=== PATIENT | male | born 1990 | race Caucasian/White ===

== ENCOUNTER 2017-04-12 03:33 | Emergency (ER) | payer OTHER ==
[~2017-04-12] VITALS: Ht 170.2 cm; Wt 79.5 kg
[~2017-04-12 03:33] MED LIST: ALPR-392 PO; SERT50TA PO; TRAZ-129 PO
[2017-04-12] MEDS ORDERED: SODIUM CHLORIDE 0.9% 1,000 ML IV ONE (04:10)
[2017-04-12] MEDS ORDERED: LORAZEPAM 2MG/ML CPJ IV ONE (04:15)
[2017-04-12 04:48] LABS: BASOPHILS % 0.8 % (0.0-2.0); EOSINOPHILS % 0.2 % (0.0-5.0); HEMATOCRIT. 44.6 % (42.0-52.0); HEMOGLOBIN. 15.3 g/dL (14.0-18.0); LYMPHOCYTES % 26.2 % (20.0-50.0); MEAN CORPUSCULAR HEMOGLOBIN 31.4 pg (28.0-32.0); MEAN CORPUSCULAR VOLUME 91.4 fL (80.0-94.0); MEAN PLATELET VOLUME 8.2 fl (7.4-10.4); MONOCYTES % 6.7 % (2.0-8.0); NEUTROPHILS % 66.1 % (40.0-76.0); PLATELET 197 x1000/uL (130-400); RED BLOOD CELL COUNT 4.88 mill/uL (4.7-6.1); RED CELL DISTRIBUTION WIDTH 13.6 % (11.6-14.6)
[2017-04-12 04:54] LABS: INR 1.1; PROTHROMBIN TIME 11.4 sec
[2017-04-12] MEDS ORDERED: ONDANSETRON HCL 4MG/2ML VIAL IV STA (04:54)
[2017-04-12 04:55] LABS: AMMONIA 25 uMol/L (<32)
[2017-04-12 05:00] LABS: CARBON DIOXIDE 26 mEq/L (21-32); CHLORIDE 99 mEq/L (98-107); ETHANOL BLOOD < 10 mg/dL
[2017-04-12 06:16] LABS: *AMPHETAMINES SCREEN URINE NEGATIVE (NEGATIVE); *BARBITURATES SCREEN URINE NEGATIVE (NEGATIVE); *BENZODIAZEPINES SCREEN URINE NEGATIVE (NEGATIVE); *COCAINE SCREEN URINE NEGATIVE (NEGATIVE); CANNABINOID URINE SCREEN PRESUMTIVE POSITIVE (NEGATIVE); METHADONE URINE SCREEN NEGATIVE (NEGATIVE); OPIATES URINE SCREEN NEGATIVE (NEGATIVE); PHENCYCLIDINE URINE SCREEN NEGATIVE (NEGATIVE)
[2017-04-12 07:05] VITALS: BP 127/90
== END 2017-04-12 07:05 | disposition home or self-care (01) ==
LOC: ER 03:35
DX: F10.239 Alcohol dependence with withdrawal, unspecified (principal); R74.0 Nonspecific elevation of levels of transaminase and lactic acid dehydrogenase [LDH]; F41.9 Anxiety disorder, unspecified; F12.10 Cannabis abuse, uncomplicated
CPT/HCPCS: 36415; 71010; 80053; 80305; 82140; 83690; 85025; 85610; 93005; 96361; 96374; 96375; 99285; G0482; J2060; J2405; J7030; Z7610

== ENCOUNTER 2017-05-05 04:51 | Emergency (ER) | payer OTHER ==
[~2017-05-05] VITALS: Ht 170.2 cm; Wt 82.0 kg
[2017-05-05] MEDS ORDERED: SODIUM CHLORIDE 0.9% 1,000 ML IV ONE (06:43)
[2017-05-05] MEDS ORDERED: ONDANSETRON HCL 4MG/2ML VIAL IV ONE (06:45)
[2017-05-05] MEDS ORDERED: CHLORDIAZEPOXIDE 25MG CAPSULE PO ONE (06:45)
[2017-05-05] MEDS ORDERED: ACETAMINOPHEN 325MG TABLET PO ONE (07:00)
[2017-05-05 07:34] LABS: CHLORIDE 99 mEq/L (98-107)
[2017-05-05 07:39] LABS: CARBON DIOXIDE 24 mEq/L (21-32); ETHANOL BLOOD 145 mg/dL
[2017-05-05 07:46] LABS: BASOPHILS % 0.8 % (0.0-2.0); EOSINOPHILS % 0.1 % (0.0-5.0); HEMATOCRIT. 45.2 % (42.0-52.0); HEMOGLOBIN. 15.5 g/dL (14.0-18.0); LYMPHOCYTES % 42.1 % (20.0-50.0); MEAN CORPUSCULAR HEMOGLOBIN 31.6 pg (28.0-32.0); MEAN CORPUSCULAR VOLUME 91.9 fL (80.0-94.0); MEAN PLATELET VOLUME 7.6 fl (7.4-10.4); MONOCYTES % 8.6 % (2.0-8.0); NEUTROPHILS % 48.4 % (40.0-76.0); PLATELET 263 x1000/uL (130-400); RED BLOOD CELL COUNT 4.91 mill/uL (4.7-6.1); RED CELL DISTRIBUTION WIDTH 13.6 % (11.6-14.6)
[2017-05-05 08:33] VITALS: BP 132/87
== END 2017-05-05 08:35 | disposition home or self-care (01) ==
LOC: ER 04:52
DX: F10.239 Alcohol dependence with withdrawal, unspecified (principal); Y90.6 Blood alcohol level of 120-199 mg/100 ml; R19.7 Diarrhea, unspecified; R11.2 Nausea with vomiting, unspecified
CPT/HCPCS: 36415; 80053; 85025; 96361; 96374; 99284; G0482; J2405; J7030; Z7610

== ENCOUNTER 2017-06-01 04:35 | Emergency (ER) | payer OTHER ==
[~2017-06-01] VITALS: Ht 170.2 cm; Wt 82.0 kg
[2017-06-01 06:38] VITALS: BP 154/86
[2017-06-01] MEDS ORDERED: ONDANSETRON HCL 4MG/2ML VIAL IV ONE (07:30)
[2017-06-01] MEDS ORDERED: LORAZEPAM 2MG/ML CPJ IV ONE (07:30)
[2017-06-01] MEDS ORDERED: SODIUM CHLORIDE 0.9% 1,000 ML IV ONE (07:30)
[2017-06-01 07:38] LABS: BASOPHILS % 0.9 % (0.0-2.0); EOSINOPHILS % 0.4 % (0.0-5.0); HEMOGLOBIN. 14.5 g/dL (14.0-18.0); LYMPHOCYTES % 29.4 % (20.0-50.0); MEAN CORPUSCULAR VOLUME 92.9 fL (80.0-94.0); MEAN PLATELET VOLUME 8.4 fl (7.4-10.4); MONOCYTES % 9.4 % (2.0-8.0); NEUTROPHILS % 59.9 % (40.0-76.0); PLATELET 194 x1000/uL (130-400); RED BLOOD CELL COUNT 4.52 mill/uL (4.7-6.1); RED CELL DISTRIBUTION WIDTH 14.7 % (11.6-14.6)
[2017-06-01 07:50] LABS: CARBON DIOXIDE 29 mEq/L (21-32); CHLORIDE 98 mEq/L (98-107); ETHANOL BLOOD < 10 mg/dL
[2017-06-01 08:31] LABS: CLARITY URINE CLEAR (CLEAR); COLOR URINE ORANGE (YELLOW); GLUCOSE URINE NEGATIVE (NEGATIVE); KETONES URINE 1+ (NEGATIVE); LEUKOCYTE ESTERASE URINE TRACE (NEGATIVE); NITRITE URINE NEGATIVE (NEGATIVE); OCCULT BLOOD URINE NEGATIVE (NEGATIVE); PH URINE 8.5 (4.5-8.0); PROTEIN URINE 1+ (NEGATIVE); SPECIFIC GRAVITY URINE 1.022 (1.005-1.030)
== END 2017-06-01 10:30 | disposition home or self-care (01) ==
LOC: ER 04:35
DX: F10.129 Alcohol abuse with intoxication, unspecified (principal); Y90.0 Blood alcohol level of less than 20 mg/100 ml
CPT/HCPCS: 36415; 80048; 81001; 85025; 96361; 96374; 96375; 99284; G0482; J2060; J2405; J7030; Z7610

== ENCOUNTER 2017-09-30 22:11 | Inpatient (IN) | payer OTHER ==
[~2017-09-30] VITALS: Ht 170.2 cm; Wt 66.7 kg
[2017-09-30] MEDS ORDERED: SODIUM CHLORIDE 0.9% 1,000 ML IV ONE (22:55)
[2017-09-30] MEDS ORDERED: LORAZEPAM 2MG/ML CPJ IV STA (22:55)
[2017-09-30] MEDS ORDERED: MAGNESIUM 2 G PREMIX 50 ML IV ONE (23:00)
[2017-09-30] MEDS ORDERED: FOLIC ACID 1 MG, THIAMINE HCL 100 MG, MVI, ADULT NO.1 10 ML in DEXTROSE 5% WATER 1,000 ML IV ONE ×4 (23:00)
[2017-09-30 23:25] LABS: BASOPHILS % 0.6 % (0.0-2.0); EOSINOPHILS % 0.1 % (0.0-5.0); HEMATOCRIT. 43.7 % (42.0-52.0); LYMPHOCYTES % 16.4 % (20.0-50.0); MEAN CORPUSCULAR HEMOGLOBIN 32.4 pg (28.0-32.0); MEAN PLATELET VOLUME 8.9 fl (7.4-10.4); MONOCYTES % 9.2 % (2.0-8.0); NEUTROPHILS % 73.7 % (40.0-76.0); PLATELET 155 x1000/uL (130-400); RED BLOOD CELL COUNT 4.65 mill/uL (4.7-6.1); RED CELL DISTRIBUTION WIDTH 13.4 % (11.6-14.6)
[2017-09-30 23:33] LABS: AMMONIA 44 uMol/L (<32)
[2017-09-30 23:40] LABS: CARBON DIOXIDE 26 mEq/L (21-32); CHLORIDE 89 mEq/L (98-107); CREATINE KINASE 156 IU/L (39-308); ETHANOL BLOOD < 10 mg/dL
[2017-09-30] MEDS ORDERED: LACTULOSE 20G/30ML UDC PO ONE (23:45)
[2017-10-01] MEDS ORDERED: ONDANSETRON HCL 4MG/2ML VIAL IV ONE (00:15)
[2017-10-01] MEDS ORDERED: POTASSIUM CHLORIDE 20MEQ TABLET SR PO NR (00:45)
[2017-10-01] MEDS ORDERED: POTASSIUM CHLORIDE INJ 40 MEQ in DEXT 5% WATER 250 ML IV NR (00:45)
[2017-10-01 02:18] LABS: CLARITY URINE CLEAR (CLEAR); COLOR URINE ORANGE (YELLOW); KETONES URINE TRACE (NEGATIVE); LEUKOCYTE ESTERASE URINE 1+ (NEGATIVE); NITRITE URINE NEGATIVE (NEGATIVE); OCCULT BLOOD URINE NEGATIVE (NEGATIVE); PH URINE >=9.0 (4.5-8.0); PROTEIN URINE 2+ (NEGATIVE); SPECIFIC GRAVITY URINE 1.025 (1.005-1.030)
[2017-10-01 02:28] LABS: *AMPHETAMINES SCREEN URINE NEGATIVE (NEGATIVE); *BARBITURATES SCREEN URINE NEGATIVE (NEGATIVE); *BENZODIAZEPINES SCREEN URINE NEGATIVE (NEGATIVE); *COCAINE SCREEN URINE NEGATIVE (NEGATIVE); CANNABINOID URINE SCREEN PRESUMTIVE POSITIVE (NEGATIVE); METHADONE URINE SCREEN NEGATIVE (NEGATIVE); OPIATES URINE SCREEN NEGATIVE (NEGATIVE); PHENCYCLIDINE URINE SCREEN NEGATIVE (NEGATIVE)
[2017-10-01] MEDS ORDERED: MAGNESIUM/ALUMINUM HYDROXIDE/SIMETHICONE 30ML UDC PO PRN (07:45)
[2017-10-01] MEDS ORDERED: GUAIFENESIN 200MG/10ML SUGAR FREE UDC PO PRN (07:45)
[2017-10-01] MEDS ORDERED: ACETAMINOPHEN 650MG/20.3ML UDC GT PRN (07:45)
[2017-10-01] MEDS ORDERED: ACETAMINOPHEN 325MG TABLET PO PRN (07:45)
[2017-10-01] MEDS ORDERED: DIPHENHYDRAMINE 50MG/ML VIAL IV PRN (07:45)
[2017-10-01] MEDS ORDERED: HYDROCODONE/ACETAMINOPHEN 5/325MG TABLET PO PRN (07:45)
[2017-10-01] MEDS ORDERED: ONDANSETRON HCL 4MG/2ML VIAL IV PRN (07:45)
[2017-10-01] MEDS ORDERED: NA PHOS,M-B/NA PHOS,DI-BA ENEMA 118ML PR PRN (07:45)
[2017-10-01] MEDS ORDERED: IPRATROPIUM/ALBUTEROL 0.5-3(2.5)MG/3ML NEB INH PRN (07:45)
[2017-10-01] MEDS ORDERED: DOCUSATE SODIUM 100MG CAPSULE PO PRN (07:45)
[2017-10-01] MEDS ORDERED: CLONIDINE 0.1MG TABLET PO PRN (07:45)
[2017-10-01] MEDS ORDERED: ACETAMINOPHEN 650MG SUPP PR PRN (07:45)
[2017-10-01 09:00] VITALS: BP 147/99
[2017-10-01 09:37] VITALS: BP 147/99
[2017-10-01] MEDS: SODIUM CHLORIDE 0.45% 1,000 ML IV SCH ×2 (09:55→21:33)
[2017-10-01] MEDS: SODIUM CHLORIDE 0.9% INJ 3ML FLUSH IVF SCH ×2 (09:55→21:36)
[2017-10-01 10:05] LABS: CARBON DIOXIDE 29 mEq/L (21-32); CHLORIDE 95 mEq/L (98-107)
[2017-10-01 12:00] VITALS: BP 138/103
[2017-10-01] MEDS: ENOXAPARIN 40MG/0.4ML SYR SUBCUT SCH (13:28)
[2017-10-01] MEDS: CHLORDIAZEPOXIDE 25MG CAPSULE PO SCH ×2 (13:28→21:26)
[2017-10-01 16:00] VITALS: BP 128/87
[2017-10-01 22:36] VITALS: BP 128/90
[2017-10-02] VITALS: BP 129/89
[2017-10-02 04:00] VITALS: BP 134/98
[2017-10-02 05:16] LABS: HEMATOCRIT. 42.5 % (42.0-52.0); HEMOGLOBIN. 14.2 g/dL (14.0-18.0); LYMPHOCYTES % 30.7 % (20.0-50.0); MEAN CORPUSCULAR HEMOGLOBIN 32.1 pg (28.0-32.0); MEAN PLATELET VOLUME 9.4 fl (7.4-10.4); MONOCYTES % 7.7 % (2.0-8.0); NEUTROPHILS % 59.6 % (40.0-76.0); PLATELET 119 x1000/uL (130-400); RED BLOOD CELL COUNT 4.43 mill/uL (4.7-6.1)
[2017-10-02 05:21] LABS: CARBON DIOXIDE 30 mEq/L (21-32); CHLORIDE 100 mEq/L (98-107); HDL CHOLESTEROL 49 mg/dL (40-59); LDL CHOLESTEROL 98 mg/dL (5-100)
[2017-10-02] MEDS: CHLORDIAZEPOXIDE 25MG CAPSULE PO SCH (06:33)
[2017-10-02] MEDS: SODIUM CHLORIDE 0.9% INJ 3ML FLUSH IVF SCH (06:35)
[2017-10-02 09:00] VITALS: BP 146/95
[2017-10-02] MEDS: ENOXAPARIN 40MG/0.4ML SYR SUBCUT SCH (11:00)
[2017-10-02 12:30] VITALS: BP 131/100
[2017-10-02 13:12] VITALS: BP 131/100
== END 2017-10-02 14:00 | disposition home or self-care (01) | DRG 897 ==
LOC: ER 22:11 → 7WST 10-01 00:48 → ENRESERV 10-01 07:33
PROVIDERS: ADMIT Family Medicine; ATTEND Family Medicine
DX: F10.239 Alcohol dependence with withdrawal, unspecified (principal); K29.70 Gastritis, unspecified, without bleeding; Z79.899 Other long term (current) drug therapy
CPT/HCPCS: 36415; 80048; 80053; 80061; 80305; 81001; 82140; 82550; 82962; 83605; 85025; 93005; 96374; 96375; 99285; G0482; J1650; J2060; J2405; J3411; J3475; J3480; J3490; J7030; J7060; J7070

== ENCOUNTER 2017-10-21 20:36 | Emergency (ER) | payer OTHER ==
[~2017-10-21] VITALS: Ht 170.2 cm; Wt 82.0 kg
[2017-10-21] MEDS ORDERED: HYDROCODONE/ACETAMINOPHEN 5/325MG TABLET PO ONE (22:00)
[2017-10-21] MEDS ORDERED: KETOROLAC 60MG/2ML VIAL IM ONE (22:00)
[2017-10-22 00:16] VITALS: BP 125/85
== END 2017-10-22 00:16 | disposition home or self-care (01) ==
LOC: ER 21:43
DX: S92.901A Unspecified fracture of right foot, initial encounter for closed fracture (principal); W22.8XXA Striking against or struck by other objects, initial encounter; Y93.89 Activity, other specified; Y92.018 Other place in single-family (private) house as the place of occurrence of the external cause
CPT/HCPCS: 29515; 73630; 96372; 99284; J1885

== ENCOUNTER 2017-11-14 22:31 | Inpatient (IN) | payer SELFPAY ==
[~2017-11-14] VITALS: Ht 154.2 cm; Wt 79.4 kg
[2017-11-15] MEDS ORDERED: SODIUM CHLORIDE 0.9% 1,000 ML IV ONE (03:20)
[2017-11-15] MEDS ORDERED: ONDANSETRON HCL 4MG/2ML VIAL IV STA ×2 (03:20→04:21)
[2017-11-15 04:03] LABS: BASOPHILS % 0.5 % (0.0-2.0); EOSINOPHILS % 0.1 % (0.0-5.0); HEMOGLOBIN. 15.1 g/dL (14.0-18.0); LYMPHOCYTES % 7.3 % (20.0-50.0); MEAN CORPUSCULAR HEMOGLOBIN 32.7 pg (28.0-32.0); MEAN PLATELET VOLUME 8.1 fl (7.4-10.4); MONOCYTES % 6.9 % (2.0-8.0); NEUTROPHILS % 85.2 % (40.0-76.0); PLATELET 149 x1000/uL (130-400); RED BLOOD CELL COUNT 4.63 mill/uL (4.7-6.1); RED CELL DISTRIBUTION WIDTH 14.6 % (11.6-14.6)
[2017-11-15 04:05] LABS: CHLORIDE 92 mEq/L (98-107)
[2017-11-15 04:08] LABS: INR 1.2; PROTHROMBIN TIME 12.1 sec (9.4-11.6)
[2017-11-15 04:19] LABS: ETHANOL BLOOD < 10 mg/dL
[2017-11-15 04:45] LABS: CLARITY URINE TURBID (CLEAR); COLOR URINE ORANGE (YELLOW); KETONES URINE 2+ (NEGATIVE); LEUKOCYTE ESTERASE URINE 2+ (NEGATIVE); NITRITE URINE POSITIVE (NEGATIVE); OCCULT BLOOD URINE 2+ (NEGATIVE); PROTEIN URINE 3+ (NEGATIVE); SPECIFIC GRAVITY URINE 1.043 (1.005-1.030)
[2017-11-15] MEDS ORDERED: KCL 20MEQ/100ML PREMIX 100 ML IV NR (04:45)
[2017-11-15] MEDS ORDERED: SODIUM CHLORIDE 0.9% 1000ML BAG (SEPSIS BOLUS) IV NR (04:45)
[2017-11-15 04:57] LABS: *AMPHETAMINES SCREEN URINE NEGATIVE (NEGATIVE); *BARBITURATES SCREEN URINE NEGATIVE (NEGATIVE); *BENZODIAZEPINES SCREEN URINE PRESUMTIVE POSITIVE (NEGATIVE); *COCAINE SCREEN URINE NEGATIVE (NEGATIVE); METHADONE URINE SCREEN NEGATIVE (NEGATIVE)
[2017-11-15 04:58] LABS: CANNABINOID URINE SCREEN PRESUMTIVE POSITIVE (NEGATIVE); OPIATES URINE SCREEN NEGATIVE (NEGATIVE); PHENCYCLIDINE URINE SCREEN NEGATIVE (NEGATIVE)
[2017-11-15] MEDS ORDERED: LORAZEPAM 2MG/ML CPJ IV NR (05:00)
[2017-11-15] MEDS ORDERED: CEFTRIAXONE 1 G PREMIX 50 ML IV ONE (07:00)
[2017-11-15 08:00] VITALS: BP 154/102
[2017-11-15 09:23] VITALS: BP 154/102
[2017-11-15 09:47] VITALS: BP 154/102
[2017-11-15] MEDS ORDERED: MAGNESIUM/ALUMINUM HYDROXIDE/SIMETHICONE 30ML UDC PO PRN (11:45)
[2017-11-15] MEDS ORDERED: CLONIDINE 0.1MG TABLET PO PRN (11:45)
[2017-11-15] MEDS ORDERED: IPRATROPIUM/ALBUTEROL 0.5-3(2.5)MG/3ML NEB INH PRN (11:45)
[2017-11-15] MEDS ORDERED: ONDANSETRON HCL 4MG/2ML VIAL IV PRN (11:45)
[2017-11-15 12:00] VITALS: BP 149/100
[2017-11-15] MEDS ORDERED: MVI, ADULT NO.1 10 ML, FOLIC ACID 1 MG, THIAMINE HCL 100 MG in SODIUM CHLORIDE 0.9% 1,0... IV SCH ×4 (14:00)
[2017-11-15] MEDS: CHLORDIAZEPOXIDE 25MG CAPSULE PO SCH ×2 (14:06→22:29)
[2017-11-15] MEDS: LORAZEPAM 2MG/ML CPJ IV PRN ×2 (14:07→22:30)
[2017-11-15] MEDS: OMEPRAZOLE 20MG CAPSULE EXTENDED RELEASE PO SCH (14:19)
[2017-11-15 16:00] VITALS: BP 134/91
[2017-11-15] MEDS ORDERED: TRAMADOL 50MG TABLET PO PRN (19:00)
[2017-11-15 20:00] VITALS: BP 127/79
[2017-11-15] MEDS: SODIUM CHLORIDE 0.9% 1,000 ML IV SCH (22:29)
[2017-11-16] VITALS: BP 130/83
[2017-11-16 04:00] VITALS: BP 133/94
[2017-11-16] MEDS: CHLORDIAZEPOXIDE 25MG CAPSULE PO SCH ×3 (05:49→21:02)
[2017-11-16 07:28] LABS: BASOPHILS % 0.6 % (0.0-2.0); EOSINOPHILS % 0.8 % (0.0-5.0); HEMATOCRIT. 38.9 % (42.0-52.0); HEMOGLOBIN. 13.4 g/dL (14.0-18.0); LYMPHOCYTES % 27.1 % (20.0-50.0); MEAN CORPUSCULAR HEMOGLOBIN 33.3 pg (28.0-32.0); MEAN CORPUSCULAR VOLUME 96.4 fL (80.0-94.0); MONOCYTES % 6.7 % (2.0-8.0); NEUTROPHILS % 64.8 % (40.0-76.0); PLATELET 96 x1000/uL (130-400); RED BLOOD CELL COUNT 4.04 mill/uL (4.7-6.1); RED CELL DISTRIBUTION WIDTH 14.7 % (11.6-14.6)
[2017-11-16 07:55] LABS: CHLORIDE 102 mEq/L (98-107)
[2017-11-16 08:00] VITALS: BP 142/99
[2017-11-16 08:20] LABS: PHOSPHORUS 2.8 mg/dL (2.5-4.9)
[2017-11-16] MEDS: OMEPRAZOLE 20MG CAPSULE EXTENDED RELEASE PO SCH (08:22)
[2017-11-16] MEDS: SODIUM CHLORIDE 0.9% 1,000 ML IV SCH (09:26)
[2017-11-16] MEDS: LORAZEPAM 1MG TABLET PO PRN ×3 (11:09→21:02)
[2017-11-16] MEDS ORDERED: POTASSIUM CHLORIDE 20MEQ TABLET SR PO NR (11:15)
[2017-11-16 12:00] VITALS: BP 139/102
[2017-11-16 16:00] VITALS: BP 144/105
[2017-11-16 19:36] LABS: HEPATITIS B SURFACE ANTIGEN NEGATIVE
[2017-11-16 20:00] VITALS: BP 140/89
[2017-11-16 20:04] LABS: HEPATITIS B CORE AB IGM NEGATIVE
[2017-11-16 20:06] LABS: HEPATITIS A AB IGM NEGATIVE (NEGATIVE)
[2017-11-17] VITALS: BP 130/96
[2017-11-17 04:00] VITALS: BP 123/79
[2017-11-17] MEDS: LORAZEPAM 1MG TABLET PO PRN ×2 (04:38→10:04)
[2017-11-17 06:11] LABS: HEMOGLOBIN 14.4 g/dL (14.0-18.0); MEAN CORPUSCULAR HEMOGLOBIN 33.3 pg (28.0-32.0); MEAN CORPUSCULAR VOLUME 97.3 fL (80.0-94.0); PLATELET 112 x1000/uL (130-400); RED BLOOD CELL COUNT 4.31 mill/uL (4.7-6.1); RED CELL DISTRIBUTION WIDTH 14.6 % (11.6-14.6)
[2017-11-17] MEDS: OMEPRAZOLE 20MG CAPSULE EXTENDED RELEASE PO SCH (06:29)
[2017-11-17] MEDS: CHLORDIAZEPOXIDE 25MG CAPSULE PO SCH (06:29)
[2017-11-17 06:47] LABS: CHLORIDE 102 mEq/L (98-107)
[2017-11-17 08:00] VITALS: BP 133/102
[2017-11-17 12:00] VITALS: BP 145/100
[2017-11-17] MEDS ORDERED: FOLI-43 PO (14:03)
[2017-11-17] MEDS ORDERED: THIA100T13 PO (14:03)
[2017-11-17] MEDS ORDERED: MULT-1146 PO (14:04)
[2017-11-17 14:05] VITALS: BP 145/100
== END 2017-11-17 15:00 | disposition home or self-care (01) | DRG 775 ==
LOC: ER 22:31 → 6EST 11-15 04:56 → ENRESERV 11-15 06:55
PROVIDERS: ADMIT Family Medicine Adult Medicine; ATTEND Family Medicine Adult Medicine
DX: F10.239 Alcohol dependence with withdrawal, unspecified (principal); E87.2 Acidosis; K76.0 Fatty (change of) liver, not elsewhere classified; I10 Essential (primary) hypertension; K70.9 Alcoholic liver disease, unspecified; N39.0 Urinary tract infection, site not specified; E87.6 Hypokalemia; D53.9 Nutritional anemia, unspecified; Z79.899 Other long term (current) drug therapy; Z79.1 Long term (current) use of non-steroidal anti-inflammatories (NSAID)
CPT/HCPCS: 36415; 70450; 71045; 74176; 76705; 80048; 80053; 80076; 80305; 81003; 82248; 83605; 83690; 83735; 84100; 84484; 85025; 85027; 85610; 86705; 86709; 86803; 87340; 87804; 96361; 96365; 96366; 96367; 96375; 97162; 99291; G0482; J0696; J2060; J2405; J3411; J3480; J3490; J7030

== ENCOUNTER 2017-12-14 02:12 | Emergency (ER) | payer SELFPAY ==
[~2017-12-14] VITALS: Ht 170.2 cm; Wt 65.0 kg
[~2017-12-14 02:12] MED LIST changes: -ALPR-392 PO; +FOLI-43 PO; +MULT-1146 PO; -SERT50TA PO; +THIA100T13 PO; -TRAZ-129 PO
[2017-12-14] MEDS ORDERED: SODIUM CHLORIDE 0.9% 1,000 ML IV ONE (03:38)
[2017-12-14] MEDS ORDERED: LORAZEPAM 1MG TABLET PO ONE (03:45)
[2017-12-14] MEDS ORDERED: FOLIC ACID 1 MG, THIAMINE HCL 100 MG, MVI, ADULT NO.1 10 ML in DEXTROSE 5% WATER 1,000 ML IV ONE ×4 (03:45)
[2017-12-14 04:04] LABS: BASOPHILS % 0.3 % (0.0-2.0); HEMATOCRIT. 41.1 % (42.0-52.0); HEMOGLOBIN. 14.5 g/dL (14.0-18.0); LYMPHOCYTES % 15.1 % (20.0-50.0); MEAN CORPUSCULAR HEMOGLOBIN 33.4 pg (28.0-32.0); MEAN CORPUSCULAR VOLUME 94.6 fL (80.0-94.0); MEAN PLATELET VOLUME 8.6 fl (7.4-10.4); NEUTROPHILS % 74.6 % (40.0-76.0); PLATELET 92 x1000/uL (130-400); RED BLOOD CELL COUNT 4.34 mill/uL (4.7-6.1); RED CELL DISTRIBUTION WIDTH 14.7 % (11.6-14.6)
[2017-12-14 04:07] LABS: CHLORIDE 85 mEq/L (98-107)
[2017-12-14 04:08] LABS: INR 1.2; PROTHROMBIN TIME 12.5 sec (9.4-11.6)
[2017-12-14 04:11] LABS: ETHANOL BLOOD < 10 mg/dL
[2017-12-14] MEDS ORDERED: LORAZEPAM 2MG/ML CPJ IV ONE ×2 (04:30→09:45)
[2017-12-14] MEDS ORDERED: POTASSIUM CHLORIDE 20MEQ TABLET SR PO ONE (04:30)
[2017-12-14 05:03] LABS: CLARITY URINE CLEAR (CLEAR); COLOR URINE ORANGE (YELLOW); KETONES URINE NEGATIVE (NEGATIVE); LEUKOCYTE ESTERASE URINE 1+ (NEGATIVE); NITRITE URINE POSITIVE (NEGATIVE); OCCULT BLOOD URINE NEGATIVE (NEGATIVE); PH URINE >=9.0 (4.5-8.0); PROTEIN URINE 3+ (NEGATIVE); SPECIFIC GRAVITY URINE 1.027 (1.005-1.030)
[2017-12-14 05:13] LABS: *AMPHETAMINES SCREEN URINE NEGATIVE (NEGATIVE); *BARBITURATES SCREEN URINE NEGATIVE (NEGATIVE); *BENZODIAZEPINES SCREEN URINE PRESUMTIVE POSITIVE (NEGATIVE); *COCAINE SCREEN URINE NEGATIVE (NEGATIVE)
[2017-12-14 05:14] LABS: CANNABINOID URINE SCREEN PRESUMTIVE POSITIVE (NEGATIVE); METHADONE URINE SCREEN NEGATIVE (NEGATIVE); OPIATES URINE SCREEN NEGATIVE (NEGATIVE); PHENCYCLIDINE URINE SCREEN NEGATIVE (NEGATIVE)
[2017-12-14 10:07] VITALS: BP 131/90
== END 2017-12-14 10:08 | disposition home or self-care (01) ==
LOC: ER 02:12
DX: F10.229 Alcohol dependence with intoxication, unspecified (principal); N39.0 Urinary tract infection, site not specified; E87.6 Hypokalemia; Z79.899 Other long term (current) drug therapy; R79.1 Abnormal coagulation profile
CPT/HCPCS: 36415; 80053; 80305; 81003; 83690; 84132; 85025; 85610; 96361; 96365; 96375; 99285; G0482; J2060; J3411; J3490; J7030; J7070; Z7610

== ENCOUNTER 2018-03-05 15:53 | Inpatient (IN) | payer OTHER ==
[~2018-03-05] VITALS: Ht 170.2 cm; Wt 72.1 kg
[2018-03-05] MEDS ORDERED: SODIUM CHLORIDE 0.9% 1,000 ML IV ONE (16:35)
[2018-03-05] MEDS ORDERED: ONDANSETRON HCL 4MG/2ML VIAL IV STA (16:35)
[2018-03-05] MEDS ORDERED: FAMOTIDINE 20MG/2ML VIAL IV ONE (16:45)
[2018-03-05] MEDS ORDERED: MIDAZOLAM HCL 2 MG/2 ML VIAL IV ONE ×2 (16:45→17:30)
[2018-03-05 17:04] LABS: BASOPHILS % 0.4 % (0.0-2.0); HEMATOCRIT. 42.2 % (42.0-52.0); HEMOGLOBIN. 14.8 g/dL (14.0-18.0); LYMPHOCYTES % 10.1 % (20.0-50.0); MEAN CORPUSCULAR HEMOGLOBIN 33.9 pg (28.0-32.0); MEAN CORPUSCULAR VOLUME 96.6 fL (80.0-94.0); MEAN PLATELET VOLUME 8.2 fl (7.4-10.4); NEUTROPHILS % 79.5 % (40.0-76.0); PLATELET 211 x1000/uL (130-400); RED BLOOD CELL COUNT 4.37 mill/uL (4.7-6.1); RED CELL DISTRIBUTION WIDTH 14.3 % (11.6-14.6)
[2018-03-05 17:10] LABS: CHLORIDE 92 mEq/L (98-107)
[2018-03-05 17:13] LABS: INR 1.2; PARTIAL THROMBOPLASTIN TIME 24.3 sec (23.4-31.0); PROTHROMBIN TIME 12.2 sec (9.4-11.6)
[2018-03-05 17:14] LABS: ETHANOL BLOOD < 10 mg/dL
[2018-03-05] MEDS ORDERED: CHLORDIAZEPOXIDE 25MG CAPSULE PO ONE (17:30)
[2018-03-05] MEDS ORDERED: MAGNESIUM 2 G PREMIX 50 ML IV ONE (17:45)
[2018-03-05] MEDS: SODIUM CHLORIDE 0.45% 1,000 ML IV SCH (18:23)
[2018-03-05] MEDS ORDERED: IPRATROPIUM/ALBUTEROL 0.5-3(2.5)MG/3ML NEB INH PRN ×2 (18:30→21:45)
[2018-03-05] MEDS ORDERED: CLONIDINE 0.1MG TABLET PO PRN ×2 (18:30→21:45)
[2018-03-05] MEDS ORDERED: ACETAMINOPHEN 650MG SUPP PR PRN ×2 (18:30→21:45)
[2018-03-05] MEDS ORDERED: DIPHENHYDRAMINE 50MG/ML VIAL IV PRN ×2 (18:30→21:45)
[2018-03-05] MEDS ORDERED: DOCUSATE SODIUM 100MG CAPSULE PO PRN ×2 (18:30→21:45)
[2018-03-05] MEDS ORDERED: LORAZEPAM 2MG/ML CPJ IV PRN ×3 (18:30→21:45)
[2018-03-05] MEDS ORDERED: MAGNESIUM/ALUMINUM HYDROXIDE/SIMETHICONE 30ML UDC PO PRN ×2 (18:30→21:45)
[2018-03-05] MEDS ORDERED: HYDROCODONE/ACETAMINOPHEN 10/325MG TABLET PO PRN ×2 (18:30→21:45)
[2018-03-05] MEDS ORDERED: NA PHOS,M-B/NA PHOS,DI-BA ENEMA 118ML PR PRN ×2 (18:30→21:45)
[2018-03-05] MEDS ORDERED: ONDANSETRON HCL 4MG/2ML VIAL IV PRN ×2 (18:30→21:45)
[2018-03-05] MEDS ORDERED: HYDROCODONE/ACETAMINOPHEN 5/325MG TABLET PO PRN ×2 (18:30→21:45)
[2018-03-05 22:00] VITALS: BP 162/108
[2018-03-05] MEDS ORDERED: CHLORDIAZEPOXIDE 25MG CAPSULE PO SCH (22:00)
[2018-03-05] MEDS: CHLORDIAZEPOXIDE 25MG CAPSULE PO SCH (22:16)
[2018-03-05 23:00] VITALS: BP 162/108
[2018-03-05] MEDS: LORAZEPAM 2MG/ML CPJ IV PRN (23:14)
[2018-03-06] VITALS (7 sets, daily range): BP systolic 126–148; BP diastolic 85–105
[2018-03-06] MEDS: CHLORDIAZEPOXIDE 25MG CAPSULE PO SCH ×2 (05:58→14:03)
[2018-03-06] MEDS: LORAZEPAM 2MG/ML CPJ IV PRN ×4 (06:10→18:58)
[2018-03-06] MEDS ORDERED: THIAMINE HCL 100MG TABLET PO SCH ×2 (09:00)
[2018-03-06] MEDS ORDERED: FOLIC ACID 1MG TABLET PO SCH ×2 (09:00)
[2018-03-06] MEDS: SODIUM CHLORIDE 0.45% 1,000 ML IV SCH (14:47)
[2018-03-06 16:56] LABS: CLARITY URINE CLEAR (CLEAR); COLOR URINE DARK YELLOW (YELLOW); KETONES URINE NEGATIVE (NEGATIVE); LEUKOCYTE ESTERASE URINE NEGATIVE (NEGATIVE); NITRITE URINE NEGATIVE (NEGATIVE); OCCULT BLOOD URINE NEGATIVE (NEGATIVE); PH URINE >=9.0 (4.5-8.0); PROTEIN URINE NEGATIVE (NEGATIVE); SPECIFIC GRAVITY URINE 1.011 (1.005-1.030)
[2018-03-06 17:47] LABS: *BARBITURATES SCREEN URINE NEGATIVE (NEGATIVE); *BENZODIAZEPINES SCREEN URINE PRESUMTIVE POSITIVE (NEGATIVE)
[2018-03-06 17:48] LABS: *AMPHETAMINES SCREEN URINE NEGATIVE (NEGATIVE); *COCAINE SCREEN URINE NEGATIVE (NEGATIVE); CANNABINOID URINE SCREEN PRESUMTIVE POSITIVE (NEGATIVE); METHADONE URINE SCREEN NEGATIVE (NEGATIVE); OPIATES URINE SCREEN NEGATIVE (NEGATIVE); PHENCYCLIDINE URINE SCREEN NEGATIVE (NEGATIVE)
[2018-03-06] MEDS ORDERED: CHLO25CA10 PO ×2 (19:54→19:55)
== END 2018-03-06 21:30 | disposition home or self-care (01) | DRG 392 ==
LOC: ER 15:53 → 6WST 16:47 → EDBEDREQ 17:36 → ENRESERV 20:15 → ER 21:42
PROVIDERS: ADMIT Family Medicine; ATTEND Family Medicine
DX: R11.2 Nausea with vomiting, unspecified (principal); F10.239 Alcohol dependence with withdrawal, unspecified; E86.0 Dehydration; E83.42 Hypomagnesemia; Z79.899 Other long term (current) drug therapy
CPT/HCPCS: 36415; 71045; 80053; 80305; 81003; 83690; 83735; 83880; 84484; 85025; 85610; 85730; 93005; 96365; 96375; 99291; G0482; J2060; J2250; J2405; J3475; J3490; J7030

== ENCOUNTER 2018-04-09 23:27 | Emergency (ER) | payer SELFPAY ==
[~2018-04-09] VITALS: Ht 177.8 cm; Wt 81.0 kg
[~2018-04-09 23:27] MED LIST changes: +CHLO25CA10 PO; -MULT-1146 PO
[2018-04-10] MEDS ORDERED: LORAZEPAM 2MG/ML CPJ IV ONE ×2 (00:30→03:30)
[2018-04-10] MEDS ORDERED: FOLIC ACID 1 MG, THIAMINE HCL 100 MG, MVI, ADULT NO.1 10 ML in DEXTROSE 5% WATER 1,000 ML IV ONE ×4 (00:30)
[2018-04-10 00:54] LABS: BASOPHILS % 0.9 % (0.0-2.0); EOSINOPHILS % 0.1 % (0.0-5.0); HEMATOCRIT. 43.1 % (42.0-52.0); HEMOGLOBIN. 15.3 g/dL (14.0-18.0); LYMPHOCYTES % 45.2 % (20.0-50.0); MEAN CORPUSCULAR HEMOGLOBIN 33.7 pg (28.0-32.0); MEAN PLATELET VOLUME 7.6 fl (7.4-10.4); NEUTROPHILS % 45.8 % (40.0-76.0); PLATELET 185 x1000/uL (130-400); RED BLOOD CELL COUNT 4.54 mill/uL (4.7-6.1)
[2018-04-10 01:03] LABS: CHLORIDE 96 mEq/L (98-107)
[2018-04-10] MEDS ORDERED: POTASSIUM CHLORIDE 20MEQ TABLET SR PO ONE (01:15)
[2018-04-10] MEDS ORDERED: ONDANSETRON HCL 4MG/2ML VIAL IV ONE ×2 (05:00→06:30)
[2018-04-10 05:22] LABS: ETHANOL BLOOD 288 mg/dL
[2018-04-10] MEDS ORDERED: CHLORDIAZEPOXIDE 25MG CAPSULE PO ONE (06:00)
[2018-04-10] MEDS ORDERED: SODIUM CHLORIDE 0.9% 1,000 ML IV ONE (06:00)
[2018-04-10 08:44] VITALS: BP 134/87
== END 2018-04-10 08:58 | disposition home or self-care (01) ==
LOC: ER 23:27
DX: F10.229 Alcohol dependence with intoxication, unspecified (principal); F10.239 Alcohol dependence with withdrawal, unspecified; R11.0 Nausea; R00.0 Tachycardia, unspecified; F12.10 Cannabis abuse, uncomplicated; Z88.9 Allergy status to unspecified drugs, medicaments and biological substances; Z79.899 Other long term (current) drug therapy; Y90.8 Blood alcohol level of 240 mg/100 ml or more
CPT/HCPCS: 36415; 80053; 83690; 85025; 96365; 96375; 96376; 99285; G0482; J2060; J2405; J3411; J3490; J7030; J7070

== ENCOUNTER 2018-04-18 18:34 | Emergency (ER) | payer SELFPAY | END 2018-04-18 19:50 | disposition left against medical advice (07) | LOC: ER 18:34 | DX: Z53.21 Procedure and treatment not carried out due to patient leaving prior to being seen by health care provider (principal) ==

== ENCOUNTER 2018-04-24 03:37 | Inpatient (IN) | payer SELFPAY ==
[~2018-04-24] VITALS: Ht 170.2 cm; Wt 79.4 kg
[2018-04-24] MEDS ORDERED: SODIUM CHLORIDE 0.9% 1,000 ML IV ONE ×2 (04:42→07:08)
[2018-04-24] MEDS ORDERED: LORAZEPAM 2MG/ML CPJ IV ONE ×2 (04:45→07:15)
[2018-04-24 05:06] LABS: EOSINOPHILS % 0.1 % (0.0-5.0); HEMATOCRIT. 46.4 % (42.0-52.0); HEMOGLOBIN. 16.1 g/dL (14.0-18.0); LYMPHOCYTES % 31.8 % (20.0-50.0); MEAN CORPUSCULAR HEMOGLOBIN 33.4 pg (28.0-32.0); MEAN CORPUSCULAR VOLUME 96.1 fL (80.0-94.0); MEAN PLATELET VOLUME 7.7 fl (7.4-10.4); MONOCYTES % 9.8 % (2.0-8.0); NEUTROPHILS % 57.3 % (40.0-76.0); PLATELET 143 x1000/uL (130-400); RED BLOOD CELL COUNT 4.83 mill/uL (4.7-6.1); RED CELL DISTRIBUTION WIDTH 14.1 % (11.6-14.6)
[2018-04-24 05:07] LABS: CHLORIDE 89 mEq/L (98-107)
[2018-04-24 05:15] LABS: ETHANOL BLOOD 190 mg/dL
[2018-04-24 05:28] LABS: INR 1.3; PROTHROMBIN TIME 12.6 sec (9.1-11.1)
[2018-04-24] MEDS ORDERED: ONDANSETRON 4MG ODT PO ONE (05:30)
[2018-04-24] MEDS ORDERED: MIDAZOLAM HCL 2 MG/2 ML VIAL IV ONE (05:30)
[2018-04-24] MEDS ORDERED: PANTOPRAZOLE SODIUM 40 MG/VIAL IV ONE (05:30)
[2018-04-24] MEDS ORDERED: ONDANSETRON HCL 4MG/2ML VIAL IV STA (07:08)
[2018-04-24] MEDS ORDERED: POTASSIUM CHLORIDE INJ 40 MEQ in DEXT 5% WATER 250 ML IV ONE (09:30)
[2018-04-24 14:40] VITALS: BP 151/90
[2018-04-24] MEDS ORDERED: SODIUM CHLORIDE 0.9% 1,000 ML IV SCH (15:25)
[2018-04-24] MEDS ORDERED: MAGNESIUM/ALUMINUM HYDROXIDE/SIMETHICONE 30ML UDC PO PRN (15:30)
[2018-04-24] MEDS ORDERED: ACETAMINOPHEN 325MG TABLET PO PRN (15:30)
[2018-04-24] MEDS ORDERED: CLONIDINE 0.1MG TABLET PO PRN (15:30)
[2018-04-24] MEDS ORDERED: DIPHENHYDRAMINE 50MG/ML VIAL IV PRN (15:30)
[2018-04-24] MEDS ORDERED: ONDANSETRON HCL 4MG/2ML VIAL IV PRN (15:30)
[2018-04-24 16:00] VITALS: BP 138/92
[2018-04-24] MEDS ORDERED: MVI, ADULT NO.1 10 ML, FOLIC ACID 1 MG, THIAMINE HCL 100 MG in SODIUM CHLORIDE 0.9% 1,0... IV SCH ×4 (16:00)
[2018-04-24] MEDS ORDERED: PNEUMOCOCCAL 23-VAL P-SAC VAC 0.5 ML IM ONE (16:15)
[2018-04-24] MEDS: CHLORDIAZEPOXIDE 25MG CAPSULE PO SCH ×2 (17:07→21:17)
[2018-04-24] MEDS: LORAZEPAM 2MG/ML CPJ IV PRN ×2 (17:08→21:17)
[2018-04-24 20:00] VITALS: BP 134/91
[2018-04-24] MEDS ORDERED: MAGNESIUM 4 G PREMIX 100 ML IV NR (20:30)
[2018-04-24] MEDS ORDERED: FAMOTIDINE 20MG/2ML VIAL IV SCH (21:00)
[2018-04-25] VITALS: BP 136/89
[2018-04-25] MEDS: LORAZEPAM 2MG/ML CPJ IV PRN ×2 (01:22→05:39)
[2018-04-25 04:00] VITALS: BP 123/86
[2018-04-25] MEDS: CHLORDIAZEPOXIDE 25MG CAPSULE PO SCH (05:39)
[2018-04-25 06:20] LABS: BASOPHILS % 1.2 % (0.0-2.0); EOSINOPHILS % 0.3 % (0.0-5.0); HEMATOCRIT. 40.8 % (42.0-52.0); HEMOGLOBIN. 14.3 g/dL (14.0-18.0); LYMPHOCYTES % 32.5 % (20.0-50.0); MEAN CORPUSCULAR HEMOGLOBIN 34.2 pg (28.0-32.0); MEAN CORPUSCULAR VOLUME 97.5 fL (80.0-94.0); MEAN PLATELET VOLUME 9.3 fl (7.4-10.4); MONOCYTES % 8.2 % (2.0-8.0); NEUTROPHILS % 57.8 % (40.0-76.0); PLATELET 96 x1000/uL (130-400); RED BLOOD CELL COUNT 4.19 mill/uL (4.7-6.1); RED CELL DISTRIBUTION WIDTH 13.9 % (11.6-14.6)
[2018-04-25 07:30] VITALS: BP 134/104
[2018-04-25 08:09] LABS: CHLORIDE 99 mEq/L (98-107)
[2018-04-25 08:22] LABS: PHOSPHORUS 1.7 mg/dL (2.5-4.9)
== END 2018-04-25 08:35 | disposition left against medical advice (07) | DRG 280 ==
LOC: ER 03:37 → 8WST 09:07 → EDBEDREQ 09:09 → ENRESERV 12:46
PROVIDERS: ADMIT Internal Medicine; ATTEND Internal Medicine
DX: K70.10 Alcoholic hepatitis without ascites (principal); F10.239 Alcohol dependence with withdrawal, unspecified; E87.6 Hypokalemia; F12.90 Cannabis use, unspecified, uncomplicated; Y90.6 Blood alcohol level of 120-199 mg/100 ml; Z53.21 Procedure and treatment not carried out due to patient leaving prior to being seen by health care provider
CPT/HCPCS: 36415; 71045; 76705; 80048; 80053; 80307; 80329; 83735; 84100; 85025; 85610; 85730; 93005; 96361; 96365; 96375; 96376; 99285; C9113; G0482; J2060; J2250; J2405; J3411; J3475; J3480; J3490; J7030; J7060; Q0162

== ENCOUNTER 2018-04-25 20:12 | Emergency (ER) | payer SELFPAY ==
[~2018-04-25] VITALS: Ht 172.7 cm; Wt 73.0 kg
[2018-04-25 20:14] VITALS: BP 119/79
== END 2018-04-26 00:03 | disposition left against medical advice (07) ==
LOC: ER 20:12
DX: Z53.21 Procedure and treatment not carried out due to patient leaving prior to being seen by health care provider (principal)

== ENCOUNTER 2018-08-02 07:51 | Inpatient (IN) | payer MEDICAID ==
[~2018-08-02] VITALS: Ht 170.2 cm; Wt 77.6 kg
[2018-08-02] MEDS ORDERED: LORAZEPAM 2MG/ML CPJ IV ONE ×2 (08:30→12:30)
[2018-08-02] MEDS ORDERED: FOLIC ACID 1 MG, THIAMINE HCL 100 MG, MVI, ADULT NO.1 10 ML in DEXTROSE 5% WATER 1,000 ML IV ONE ×4 (08:30)
[2018-08-02 09:09] LABS: CHLORIDE 80 mEq/L (98-107)
[2018-08-02 09:13] LABS: ETHANOL BLOOD 25 mg/dL
[2018-08-02] MEDS ORDERED: FOLIC ACID 1 MG, THIAMINE HCL 100 MG, MVI, ADULT NO.1 10 ML in DEXTROSE 5% WATER 1,000 ML IV SCH ×4 (09:15)
[2018-08-02] MEDS ORDERED: POTASSIUM CHLORIDE INJ 40 MEQ in DEXT 5% WATER 500 ML IV ONE (09:30)
[2018-08-02] MEDS ORDERED: POTASSIUM CHLORIDE 20MEQ TABLET SR PO ONE (10:15)
[2018-08-02] MEDS ORDERED: CHLORDIAZEPOXIDE 25MG CAPSULE PO ONE (11:30)
[2018-08-02] MEDS ORDERED: ONDANSETRON HCL 4MG/2ML INJ IV ONE (12:45)
[2018-08-02] MEDS ORDERED: SODIUM CHLORIDE 0.9% 1,000 ML IV ONE (13:45)
[2018-08-02 15:41] LABS: BASOPHILS % 0.2 % (0.0-2.0); EOSINOPHILS % 0.1 % (0.0-5.0); HEMATOCRIT. 44.6 % (42.0-52.0); HEMOGLOBIN. 15.6 g/dL (14.0-18.0); LYMPHOCYTES % 15.1 % (20.0-50.0); MEAN CORPUSCULAR HEMOGLOBIN 32.9 pg (28.0-32.0); MEAN CORPUSCULAR VOLUME 94.1 fL (80.0-94.0); MEAN PLATELET VOLUME 9.5 fl (7.4-10.4); MONOCYTES % 10.3 % (2.0-8.0); NEUTROPHILS % 74.3 % (40.0-76.0); PLATELET 75 x1000/uL (130-400); RED BLOOD CELL COUNT 4.74 mill/uL (4.7-6.1); RED CELL DISTRIBUTION WIDTH 14.7 % (11.6-14.6)
[2018-08-02] MEDS ORDERED: POTASSIUM CHLORIDE 20MEQ TABLET SR PO NR (17:21)
[2018-08-02 18:28] VITALS: BP 139/91
[2018-08-02 18:49] VITALS: BP 139/91
[2018-08-02] MEDS ORDERED: ACETAMINOPHEN 325MG TABLET PO PRN (19:15)
[2018-08-02] MEDS ORDERED: ONDANSETRON HCL 4MG/2ML INJ IV PRN (19:15)
[2018-08-02] MEDS ORDERED: LORAZEPAM 1MG TABLET PO PRN (19:30)
[2018-08-02 20:00] VITALS: BP 125/88
[2018-08-02] MEDS: FAMOTIDINE 20MG/2ML VIAL IV SCH (20:31)
[2018-08-02] MEDS: SODIUM CHLORIDE 0.9% 1,000 ML IV SCH (20:32)
[2018-08-02] MEDS: POTASSIUM CHLORIDE 20MEQ TABLET SR PO SCH (23:16)
[2018-08-03] VITALS: BP 116/74
[2018-08-03] MEDS ORDERED: MAGNESIUM 2 G PREMIX 50 ML IV NR (00:30)
[2018-08-03] MEDS: POTASSIUM CHLORIDE 20MEQ TABLET SR PO SCH (01:08)
[2018-08-03] MEDS: LORAZEPAM 2MG/ML CPJ IV PRN ×4 (01:08→16:47)
[2018-08-03 04:00] VITALS: BP 111/71
[2018-08-03] MEDS: SODIUM CHLORIDE 0.9% 1,000 ML IV SCH ×2 (06:30→16:39)
[2018-08-03 08:00] VITALS: BP 116/79
[2018-08-03 08:19] LABS: BASOPHILS % 0.6 % (0.0-2.0); EOSINOPHILS % 0.7 % (0.0-5.0); HEMATOCRIT. 39.2 % (42.0-52.0); HEMOGLOBIN. 13.3 g/dL (14.0-18.0); LYMPHOCYTES % 36.4 % (20.0-50.0); MEAN CORPUSCULAR HEMOGLOBIN 32.5 pg (28.0-32.0); MEAN CORPUSCULAR VOLUME 95.6 fL (80.0-94.0); MEAN PLATELET VOLUME 9.7 fl (7.4-10.4); MONOCYTES % 7.5 % (2.0-8.0); NEUTROPHILS % 54.8 % (40.0-76.0); RED CELL DISTRIBUTION WIDTH 14.6 % (11.6-14.6)
[2018-08-03] MEDS: FAMOTIDINE 20MG/2ML VIAL IV SCH (08:37)
[2018-08-03] MEDS: THIAMINE HCL 100MG TABLET PO SCH (08:37)
[2018-08-03 09:34] LABS: CHLORIDE 96 mEq/L (98-107)
[2018-08-03 09:55] LABS: PLATELET 50 x1000/uL (130-400)
[2018-08-03 09:58] LABS: PLATELET ESTIMATE MARKEDLY DECREASED
[2018-08-03 12:00] VITALS: BP 119/85
[2018-08-03] MEDS ORDERED: POTASSIUM CHLORIDE 20MEQ TABLET SR PO NR ×2 (15:30→17:00)
[2018-08-03 16:00] VITALS: BP 130/91
[2018-08-03 20:00] VITALS: BP 128/92
[2018-08-03] MEDS: CHLORDIAZEPOXIDE 25MG CAPSULE PO SCH (21:09)
[2018-08-04] VITALS: BP 126/86
[2018-08-04 00:05] VITALS: BP 126/86
[2018-08-04] MEDS: FAMOTIDINE 20MG/2ML VIAL IV SCH ×2 (00:24→09:02)
[2018-08-04] MEDS: LORAZEPAM 2MG/ML CPJ IV PRN ×2 (00:24→08:34)
[2018-08-04] MEDS: SODIUM CHLORIDE 0.9% 1,000 ML IV SCH ×2 (00:26→11:12)
[2018-08-04 04:00] VITALS: BP 121/75
[2018-08-04] MEDS: CHLORDIAZEPOXIDE 25MG CAPSULE PO SCH ×2 (05:31→14:21)
[2018-08-04 06:21] LABS: BASOPHILS % 0.8 % (0.0-2.0); EOSINOPHILS % 0.8 % (0.0-5.0); HEMATOCRIT. 39.3 % (42.0-52.0); HEMOGLOBIN. 13.5 g/dL (14.0-18.0); LYMPHOCYTES % 33.6 % (20.0-50.0); MEAN CORPUSCULAR HEMOGLOBIN 32.8 pg (28.0-32.0); MEAN CORPUSCULAR VOLUME 95.8 fL (80.0-94.0); MEAN PLATELET VOLUME 9.4 fl (7.4-10.4); NEUTROPHILS % 54.8 % (40.0-76.0); PLATELET 66 x1000/uL (130-400); RED CELL DISTRIBUTION WIDTH 14.8 % (11.6-14.6)
[2018-08-04 06:41] LABS: CHLORIDE 102 mEq/L (98-107)
[2018-08-04 08:00] VITALS: BP 127/91
[2018-08-04] MEDS: THIAMINE HCL 100MG TABLET PO SCH (09:02)
[2018-08-04 11:57] VITALS: BP 121/90
[2018-08-04 15:47] VITALS: BP 121/90
== END 2018-08-04 16:30 | disposition home or self-care (01) | DRG 775 ==
LOC: ER 07:51 → ENRESERV 17:13 → 7WST 18:14
PROVIDERS: ADMIT Internal Medicine; ATTEND Internal Medicine
DX: F10.231 Alcohol dependence with withdrawal delirium (principal); D69.6 Thrombocytopenia, unspecified; E87.8 Other disorders of electrolyte and fluid balance, not elsewhere classified; E87.1 Hypo-osmolality and hyponatremia; E87.6 Hypokalemia; Y90.1 Blood alcohol level of 20-39 mg/100 ml; R74.0 Nonspecific elevation of levels of transaminase and lactic acid dehydrogenase [LDH]; Z79.899 Other long term (current) drug therapy
CPT/HCPCS: 36415; 80048; 83735; 93005; 99285; G0482; J2060; J2405; J3411; J3475; J3480; J3490; J7030; J7060; J7070

== ENCOUNTER 2018-09-20 01:38 | Inpatient (IN) | payer SELFPAY ==
[~2018-09-20] VITALS: Ht 170.2 cm; Wt 70.3 kg
[2018-09-20] VITALS (8 sets, daily range): BP systolic 118–135; BP diastolic 70–86
[2018-09-20] MEDS ORDERED: SODIUM CHLORIDE 0.9% 1,000 ML IV ONE (02:54)
[2018-09-20] MEDS ORDERED: LORAZEPAM 2MG/ML CPJ IV STA (02:54)
[2018-09-20 03:34] LABS: CHLORIDE 91 mEq/L (98-107)
[2018-09-20 03:36] LABS: BASOPHILS % 0.7 % (0.0-2.0); EOSINOPHILS % 0.3 % (0.0-5.0); HEMATOCRIT. 36.5 % (42.0-52.0); HEMOGLOBIN. 12.6 g/dL (14.0-18.0); LYMPHOCYTES % 23.8 % (20.0-50.0); MEAN CORPUSCULAR HEMOGLOBIN 34.2 pg (28.0-32.0); MEAN CORPUSCULAR VOLUME 99.2 fL (80.0-94.0); MEAN PLATELET VOLUME 8.5 fl (7.4-10.4); MONOCYTES % 9.4 % (2.0-8.0); NEUTROPHILS % 65.8 % (40.0-76.0); PLATELET 126 x1000/uL (130-400); RED BLOOD CELL COUNT 3.68 mill/uL (4.7-6.1); RED CELL DISTRIBUTION WIDTH 18.7 % (11.6-14.6)
[2018-09-20 03:38] LABS: ETHANOL BLOOD < 10 mg/dL
[2018-09-20 03:39] LABS: CLARITY URINE CLEAR (CLEAR); COLOR URINE ORANGE (YELLOW); KETONES URINE TRACE (NEGATIVE); LEUKOCYTE ESTERASE URINE 1+ (NEGATIVE); NITRITE URINE POSITIVE (NEGATIVE); OCCULT BLOOD URINE NEGATIVE (NEGATIVE); PH URINE 7.5 (4.5-8.0); PROTEIN URINE 1+ (NEGATIVE); SPECIFIC GRAVITY URINE 1.028 (1.005-1.030)
[2018-09-20 03:43] LABS: CREATINE KINASE 88 IU/L (39-308)
[2018-09-20 03:50] LABS: *AMPHETAMINES SCREEN URINE NEGATIVE (NEGATIVE); *BARBITURATES SCREEN URINE NEGATIVE (NEGATIVE); *BENZODIAZEPINES SCREEN URINE NEGATIVE (NEGATIVE); *COCAINE SCREEN URINE NEGATIVE (NEGATIVE)
[2018-09-20 03:51] LABS: CANNABINOID URINE SCREEN NEGATIVE (NEGATIVE); METHADONE URINE SCREEN NEGATIVE (NEGATIVE); OPIATES URINE SCREEN NEGATIVE (NEGATIVE); PHENCYCLIDINE URINE SCREEN NEGATIVE (NEGATIVE)
[2018-09-20] MEDS ORDERED: POTASSIUM CHLORIDE 20MEQ TABLET SR PO NR ×2 (04:30→10:00)
[2018-09-20] MEDS ORDERED: CEFTRIAXONE 1 G PREMIX 50 ML IV NR (04:30)
[2018-09-20] MEDS ORDERED: SODIUM CHLORIDE 0.9% 1,000 ML IV NR (10:00)
[2018-09-20] MEDS ORDERED: KETOROLAC 15MG/ML VIAL IV PRN (10:15)
[2018-09-20] MEDS ORDERED: ONDANSETRON HCL 4MG/2ML INJ IV PRN (10:15)
[2018-09-20] MEDS ORDERED: DOCUSATE SODIUM 100MG CAPSULE PO PRN (10:15)
[2018-09-20] MEDS ORDERED: NITROGLYCERIN 0.4MG TABLET SL SL PRN (10:15)
[2018-09-20] MEDS ORDERED: ACETAMINOPHEN 325MG TABLET PO PRN (10:15)
[2018-09-20] MEDS ORDERED: IPRATROPIUM/ALBUTEROL 0.5-3(2.5)MG/3ML NEB INH PRN (10:15)
[2018-09-20] MEDS ORDERED: MAGNESIUM/ALUMINUM HYDROXIDE/SIMETHICONE 30ML UDC PO PRN (10:15)
[2018-09-20] MEDS ORDERED: CLONIDINE 0.1MG TABLET PO PRN (10:15)
[2018-09-20] MEDS ORDERED: GUAIFENESIN 200MG/10ML SUGAR FREE UDC PO PRN (10:15)
[2018-09-20] MEDS: THIAMINE HCL 100MG TABLET PO SCH (10:27)
[2018-09-20] MEDS: MULTIVITAMINS,THER W-MINERALS TABLET PO SCH (10:27)
[2018-09-20] MEDS: FOLIC ACID 1MG TABLET PO SCH (10:27)
[2018-09-20] MEDS ORDERED: CHLORDIAZEPOXIDE 5 MG CAPSULE PO SCH ×2 (11:00→14:00)
[2018-09-20] MEDS: LORAZEPAM 2MG/ML CPJ IV PRN ×4 (11:06→23:37)
[2018-09-20] MEDS ORDERED: MAGNESIUM 2 G PREMIX 50 ML IV NR (12:00)
[2018-09-20] MEDS ORDERED: POTASSIUM CHLORIDE INJ 40 MEQ in DEXT 5% WATER 250 ML IV NR (13:00)
[2018-09-20] MEDS: CHLORDIAZEPOXIDE 5 MG CAPSULE PO SCH (19:42)
[2018-09-21] VITALS (8 sets, daily range): BP systolic 109–136; BP diastolic 60–97
[2018-09-21] MEDS: CHLORDIAZEPOXIDE 5 MG CAPSULE PO SCH ×2 (03:57→11:26)
[2018-09-21] MEDS: LORAZEPAM 2MG/ML CPJ IV PRN ×2 (03:57→08:36)
[2018-09-21 07:03] LABS: BASOPHILS % 0.9 % (0.0-2.0); EOSINOPHILS % 1.2 % (0.0-5.0); HEMATOCRIT. 35.5 % (42.0-52.0); HEMOGLOBIN. 12.1 g/dL (14.0-18.0); LYMPHOCYTES % 29.3 % (20.0-50.0); MEAN CORPUSCULAR HEMOGLOBIN 34.4 pg (28.0-32.0); MEAN PLATELET VOLUME 8.6 fl (7.4-10.4); MONOCYTES % 8.4 % (2.0-8.0); NEUTROPHILS % 60.2 % (40.0-76.0); PLATELET 115 x1000/uL (130-400); RED BLOOD CELL COUNT 3.51 mill/uL (4.7-6.1); RED CELL DISTRIBUTION WIDTH 18.7 % (11.6-14.6)
[2018-09-21 07:25] LABS: CHLORIDE 103 mEq/L (98-107)
[2018-09-21] MEDS: FOLIC ACID 1MG TABLET PO SCH (08:34)
[2018-09-21] MEDS: THIAMINE HCL 100MG TABLET PO SCH (08:34)
[2018-09-21] MEDS: MULTIVITAMINS,THER W-MINERALS TABLET PO SCH (08:35)
[2018-09-21] MEDS ORDERED: PANTOPRAZOLE SODIUM 40 MG/VIAL IV SCH (09:00)
== END 2018-09-21 13:00 | disposition home or self-care (01) | DRG 775 ==
LOC: ER 01:38 → 5EST 04:22 → EDBEDREQ 04:29 → ENRESERV 06:44
PROVIDERS: ADMIT Internal Medicine; ATTEND Internal Medicine
DX: F10.239 Alcohol dependence with withdrawal, unspecified (principal); E87.6 Hypokalemia; R74.0 Nonspecific elevation of levels of transaminase and lactic acid dehydrogenase [LDH]
CPT/HCPCS: 36415; 80305; 80307; 80329; 82550; 83036; 83735; 96365; 99291; C9113; G0482; J0696; J2060; J2405; J3475; J3480; J7030; J7050; J7060

== ENCOUNTER 2018-11-28 01:11 | Inpatient (IN) | payer MEDICAID, OTHER ==
[2018-11-28] VITALS (28 sets, daily range): BP systolic 103–144; BP diastolic 60–88
[~2018-11-28] VITALS: Ht 167.6 cm; Wt 68.5 kg
[2018-11-28] MEDS ORDERED: ONDANSETRON HCL 4MG/2ML INJ IV STA (01:49)
[2018-11-28] MEDS ORDERED: LORAZEPAM 2MG/ML CPJ IV STA (01:49)
[2018-11-28] MEDS ORDERED: FOLIC ACID 1 MG, THIAMINE HCL 100 MG, MVI, ADULT NO.1 10 ML in DEXTROSE 5% WATER 1,000 ML IV ONE ×4 (02:00)
[2018-11-28 02:23] LABS: CHLORIDE 84 mEq/L (98-107)
[2018-11-28 02:49] LABS: BASOPHILS % 0.5 % (0.0-2.0); HEMATOCRIT. 41.1 % (42.0-52.0); HEMOGLOBIN. 14.3 g/dL (14.0-18.0); LYMPHOCYTES % 14.8 % (20.0-50.0); MEAN CORPUSCULAR HEMOGLOBIN 33.1 pg (28.0-32.0); MEAN CORPUSCULAR VOLUME 95.2 fL (80.0-94.0); MEAN PLATELET VOLUME 7.9 fl (7.4-10.4); MONOCYTES % 5.6 % (2.0-8.0); NEUTROPHILS % 79.1 % (40.0-76.0); PLATELET 90 x1000/uL (130-400); RED BLOOD CELL COUNT 4.32 mill/uL (4.7-6.1); RED CELL DISTRIBUTION WIDTH 15.2 % (11.6-14.6)
[2018-11-28 02:49] LABS: ETHANOL BLOOD 326 mg/dL
[2018-11-28 02:52] LABS: CLARITY URINE CLEAR (CLEAR); COLOR URINE DARK YELLOW (YELLOW); KETONES URINE 4+ (NEGATIVE); LEUKOCYTE ESTERASE URINE NEGATIVE (NEGATIVE); NITRITE URINE NEGATIVE (NEGATIVE); OCCULT BLOOD URINE TRACE (NEGATIVE); PH URINE 6.5 (4.5-8.0); PROTEIN URINE 2+ (NEGATIVE); SPECIFIC GRAVITY URINE 1.014 (1.005-1.030)
[2018-11-28] MEDS ORDERED: LORAZEPAM 2MG/ML CPJ IV ONE (03:30)
[2018-11-28] MEDS ORDERED: OLANZAPINE 10 MG/VIAL IM ONE (03:30)
[2018-11-28 03:35] LABS: *BARBITURATES SCREEN URINE NEGATIVE (NEGATIVE)
[2018-11-28 03:36] LABS: *AMPHETAMINES SCREEN URINE NEGATIVE (NEGATIVE); *BENZODIAZEPINES SCREEN URINE NEGATIVE (NEGATIVE); *COCAINE SCREEN URINE NEGATIVE (NEGATIVE); METHADONE URINE SCREEN NEGATIVE (NEGATIVE); OPIATES URINE SCREEN NEGATIVE (NEGATIVE); PHENCYCLIDINE URINE SCREEN NEGATIVE (NEGATIVE)
[2018-11-28 03:37] LABS: CANNABINOID URINE SCREEN NEGATIVE (NEGATIVE)
[2018-11-28] MEDS ORDERED: MIDAZOLAM HCL 50 MG in DEXTROSE 5% WATER 40 ML IV ONE (04:30)
[2018-11-28] MEDS ORDERED: METOCLOPRAMIDE HCL 10MG/2ML VIAL IV NR (04:30)
[2018-11-28] MEDS ORDERED: POTASSIUM CHLORIDE INJ 40 MEQ in DEXT 5% WATER 250 ML IV NR (11:30)
[2018-11-28] MEDS ORDERED: FOLIC ACID 1 MG, THIAMINE HCL 100 MG, MVI, ADULT NO.1 10 ML in DEXTROSE 5% WATER 1,000 ML IV SCH ×4 (11:30)
[2018-11-28] MEDS: LORAZEPAM 2MG/ML CPJ IV PRN ×3 (12:07→23:07)
[2018-11-28 12:25] LABS: HEMATOCRIT 36.3 % (42.0-52.0); HEMOGLOBIN 12.5 g/dL (14.0-18.0)
[2018-11-28] MEDS: CHLORDIAZEPOXIDE 25MG CAPSULE PO SCH ×2 (13:32→21:22)
[2018-11-28] MEDS: ONDANSETRON HCL 4MG/2ML INJ IV PRN (13:35)
[2018-11-28] MEDS: DEXT 5%/0.45% NACL 1000ML 1,000 ML IV SCH (18:49)
[2018-11-29] VITALS (30 sets, daily range): BP systolic 108–136; BP diastolic 61–93
[2018-11-29] MEDS: LORAZEPAM 2MG/ML CPJ IV PRN ×3 (03:37→20:12)
[2018-11-29] MEDS: DEXT 5%/0.45% NACL 1000ML 1,000 ML IV SCH (03:46)
[2018-11-29 05:28] LABS: BASOPHILS % 0.5 % (0.0-2.0); EOSINOPHILS % 0.2 % (0.0-5.0); HEMATOCRIT. 32.4 % (42.0-52.0); HEMOGLOBIN. 11.4 g/dL (14.0-18.0); LYMPHOCYTES % 26.8 % (20.0-50.0); MEAN CORPUSCULAR HEMOGLOBIN 32.9 pg (28.0-32.0); MEAN CORPUSCULAR VOLUME 93.2 fL (80.0-94.0); MEAN PLATELET VOLUME 8.4 fl (7.4-10.4); MONOCYTES % 5.9 % (2.0-8.0); NEUTROPHILS % 66.6 % (40.0-76.0); RED BLOOD CELL COUNT 3.47 mill/uL (4.7-6.1)
[2018-11-29 05:35] LABS: CHLORIDE 83 mEq/L (98-107)
[2018-11-29] MEDS: CHLORDIAZEPOXIDE 25MG CAPSULE PO SCH ×3 (06:03→21:48)
[2018-11-29] MEDS ORDERED: POTASSIUM CHLORIDE INJ 60 MEQ in DEXT 5% WATER 500 ML IV ONE (06:15)
[2018-11-29 06:18] LABS: PLATELET 44 x1000/uL (130-400)
[2018-11-29] MEDS: PANTOPRAZOLE SODIUM 40 MG/VIAL IV SCH ×2 (08:31→17:28)
[2018-11-29] MEDS ORDERED: POTASSIUM CHLORIDE 20MEQ TABLET SR PO NR (10:15)
[2018-11-29] MEDS ORDERED: SODIUM CHLORIDE 0.9% 1,000 ML IV SCH (10:15)
[2018-11-29 12:41] LABS: INR 1.2; PROTHROMBIN TIME 12.1 sec (9.1-11.1)
[2018-11-29] MEDS: FOLIC ACID 1 MG, THIAMINE HCL 100 MG, MVI, ADULT NO.1 10 ML in DEXTROSE 5% WATER 1,000 ML IV SCH ×4 (13:00)
[2018-11-29] MEDS ORDERED: METOPROLOL TARTRATE 5MG/5ML VIAL IV ONE (15:31)
[2018-11-29] MEDS: MORPHINE SULFATE 4 MG/ML CPJ (NOT FOR IM USE) IV PRN (21:48)
[2018-11-29] MEDS: DIPHENHYDRAMINE 50MG/ML VIAL IV PRN (21:48)
[2018-11-29] MEDS: SODIUM CHLORIDE 0.9% 1,000 ML IV SCH (21:49)
[2018-11-30] VITALS: BP 122/80
[2018-11-30] MEDS: LORAZEPAM 2MG/ML CPJ IV PRN (02:26)
[2018-11-30 04:00] VITALS: BP 132/92
[2018-11-30] MEDS: DIPHENHYDRAMINE 50MG/ML VIAL IV PRN (04:35)
[2018-11-30] MEDS: MORPHINE SULFATE 4 MG/ML CPJ (NOT FOR IM USE) IV PRN (04:35)
[2018-11-30] MEDS ORDERED: HALOPERIDOL LACTATE 5MG/ML VIAL IM PRN (05:00)
[2018-11-30] MEDS: CHLORDIAZEPOXIDE 25MG CAPSULE PO SCH ×3 (05:03→21:01)
[2018-11-30] MEDS: ONDANSETRON HCL 4MG/2ML INJ IV PRN (05:17)
[2018-11-30 07:23] LABS: BASOPHILS % 0.3 % (0.0-2.0); EOSINOPHILS % 0.8 % (0.0-5.0); HEMATOCRIT. 30.1 % (42.0-52.0); HEMOGLOBIN. 10.7 g/dL (14.0-18.0); LYMPHOCYTES % 15.2 % (20.0-50.0); MEAN CORPUSCULAR HEMOGLOBIN 32.8 pg (28.0-32.0); MEAN CORPUSCULAR VOLUME 92.9 fL (80.0-94.0); MEAN PLATELET VOLUME 9.1 fl (7.4-10.4); MONOCYTES % 6.7 % (2.0-8.0); RED BLOOD CELL COUNT 3.25 mill/uL (4.7-6.1); RED CELL DISTRIBUTION WIDTH 14.8 % (11.6-14.6)
[2018-11-30 07:24] LABS: CHLORIDE 91 mEq/L (98-107)
[2018-11-30 08:00] VITALS: BP 122/79
[2018-11-30 08:00] LABS: PLATELET 36 x1000/uL (130-400)
[2018-11-30] MEDS ORDERED: POTASSIUM CHLORIDE 20MEQ TABLET SR PO NR (08:15)
[2018-11-30] MEDS: SODIUM CHLORIDE 0.9% 1,000 ML IV SCH (09:00)
[2018-11-30] MEDS: POTASSIUM CHLORIDE 20MEQ TABLET SR PO SCH ×3 (09:02→18:26)
[2018-11-30] MEDS: PANTOPRAZOLE SODIUM 40 MG/VIAL IV SCH ×2 (09:02→18:27)
[2018-11-30 12:00] VITALS: BP 108/69
[2018-11-30] MEDS: FOLIC ACID 1 MG, THIAMINE HCL 100 MG, MVI, ADULT NO.1 10 ML in DEXTROSE 5% WATER 1,000 ML IV SCH ×4 (13:10)
[2018-11-30 16:00] VITALS: BP 103/65
[2018-11-30 20:00] VITALS: BP 110/69
[2018-11-30] MEDS: METOPROLOL TARTRATE 50MG TABLET PO SCH (21:01)
[2018-12-01] VITALS: BP 105/72
[2018-12-01 04:00] VITALS: BP 106/64
[2018-12-01] MEDS: SODIUM CHLORIDE 0.9% 1,000 ML IV SCH ×3 (05:00→13:00)
[2018-12-01] MEDS: CHLORDIAZEPOXIDE 25MG CAPSULE PO SCH ×2 (05:02→13:32)
[2018-12-01 07:15] LABS: CHLORIDE 100 mEq/L (98-107)
[2018-12-01 07:30] LABS: BASOPHILS % 0.4 % (0.0-2.0); EOSINOPHILS % 1.6 % (0.0-5.0); HEMATOCRIT. 30.1 % (42.0-52.0); HEMOGLOBIN. 10.5 g/dL (14.0-18.0); LYMPHOCYTES % 28.7 % (20.0-50.0); MEAN CORPUSCULAR HEMOGLOBIN 33.1 pg (28.0-32.0); MEAN CORPUSCULAR VOLUME 95.2 fL (80.0-94.0); MEAN PLATELET VOLUME 9.2 fl (7.4-10.4); MONOCYTES % 9.2 % (2.0-8.0); NEUTROPHILS % 60.1 % (40.0-76.0); PLATELET 56 x1000/uL (130-400); RED BLOOD CELL COUNT 3.16 mill/uL (4.7-6.1); RED CELL DISTRIBUTION WIDTH 15.4 % (11.6-14.6)
[2018-12-01 08:00] VITALS: BP 105/66
[2018-12-01] MEDS: PANTOPRAZOLE SODIUM 40 MG/VIAL IV SCH (09:00)
[2018-12-01] MEDS: METOPROLOL TARTRATE 50MG TABLET PO SCH (09:00)
[2018-12-01 12:00] VITALS: BP 108/63
[2018-12-01] MEDS: FOLIC ACID 1 MG, THIAMINE HCL 100 MG, MVI, ADULT NO.1 10 ML in DEXTROSE 5% WATER 1,000 ML IV SCH ×4 (12:30)
[2018-12-01 16:02] VITALS: BP 111/75
[2018-12-01 16:22] VITALS: BP 111/75
== END 2018-12-01 17:07 | disposition home or self-care (01) | DRG 241 ==
LOC: ER 01:11 → CVICU 04:30 → EDBEDREQSVC 04:36 → EDBEDREQ 04:36 → EDBEDREQTM 04:36 → ENRESERV 07:06 → 7WST 11-29 18:13
PROVIDERS: ADMIT Internal Medicine; ATTEND Internal Medicine
DX: K29.21 Alcoholic gastritis with bleeding (principal); F10.231 Alcohol dependence with withdrawal delirium; D69.6 Thrombocytopenia, unspecified; E87.1 Hypo-osmolality and hyponatremia; R16.0 Hepatomegaly, not elsewhere classified; E87.8 Other disorders of electrolyte and fluid balance, not elsewhere classified; E87.6 Hypokalemia; K76.89 Other specified diseases of liver; R74.0 Nonspecific elevation of levels of transaminase and lactic acid dehydrogenase [LDH]; E80.6 Other disorders of bilirubin metabolism; Z71.41 Alcohol abuse counseling and surveillance of alcoholic
CPT/HCPCS: 36415; 76700; 80048; 80305; 80320; 83605; 84132; 85014; 85018; 93005; 93970; 96374; 96375; 99291; C9113; J1200; J1630; J2060; J2250; J2270; J2405; J2765; J3411; J3480; J3490; J7030; J7042; J7050; J7060; J7070; A4315; G0480

== ENCOUNTER 2018-12-22 02:33 | Emergency (ER) | payer MEDICAID, OTHER ==
[~2018-12-22] VITALS: Ht 170.2 cm; Wt 81.0 kg
[2018-12-22] MEDS ORDERED: KETOROLAC 30MG/ML VIAL IV STA (04:15)
[2018-12-22] MEDS ORDERED: SODIUM CHLORIDE 0.9% 1,000 ML IV ONE (04:15)
[2018-12-22] MEDS ORDERED: ONDANSETRON HCL 4MG/2ML INJ IV STA (04:15)
[2018-12-22 04:36] LABS: BASOPHILS % 0.9 % (0.0-2.0); EOSINOPHILS % 0.4 % (0.0-5.0); HEMATOCRIT. 33.1 % (42.0-52.0); HEMOGLOBIN. 11.3 g/dL (14.0-18.0); MEAN CORPUSCULAR HEMOGLOBIN 31.9 pg (28.0-32.0); MEAN CORPUSCULAR VOLUME 93.2 fL (80.0-94.0); MEAN PLATELET VOLUME 6.3 fl (7.4-10.4); MONOCYTES % 6.8 % (2.0-8.0); NEUTROPHILS % 52.9 % (40.0-76.0); PLATELET 133 x1000/uL (130-400); RED BLOOD CELL COUNT 3.55 mill/uL (4.7-6.1); RED CELL DISTRIBUTION WIDTH 16.5 % (11.6-14.6)
[2018-12-22 04:48] LABS: CHLORIDE 100 mEq/L (98-107)
[2018-12-22] MEDS ORDERED: POTASSIUM CHLORIDE 20MEQ TABLET SR PO ONE (06:30)
[2018-12-22 06:43] VITALS: BP 130/69
== END 2018-12-22 06:57 | disposition home or self-care (01) ==
LOC: ER 02:33
DX: M54.89 Other dorsalgia (principal); Y04.2XXA Assault by strike against or bumped into by another person, initial encounter; Y93.89 Activity, other specified; Y92.89 Other specified places as the place of occurrence of the external cause
CPT/HCPCS: 36415; 70450; 70486; 71045; 72070; 72100; 72125; 80048; 85025; 96374; 96375; 99284; J1885; J2405; J7030; Z7610

== ENCOUNTER 2018-12-23 16:29 | Emergency (ER) | payer MEDICAID ==
[~2018-12-23] VITALS: Ht 170.2 cm; Wt 75.0 kg
[2018-12-23 16:44] VITALS: BP 130/74
== END 2018-12-23 22:00 | disposition left against medical advice (07) ==
LOC: ER 16:29
DX: F10.10 Alcohol abuse, uncomplicated (principal); Z53.21 Procedure and treatment not carried out due to patient leaving prior to being seen by health care provider

== ENCOUNTER 2019-01-07 05:11 | Emergency (ER) | payer SELFPAY ==
[~2019-01-07] VITALS: Ht 170.2 cm; Wt 77.0 kg
[2019-01-07] MEDS ORDERED: KETOROLAC 30MG/ML VIAL IV STA (06:10)
[2019-01-07] MEDS ORDERED: LORAZEPAM 2MG/ML CPJ IV STA (06:10)
[2019-01-07 06:28] LABS: BASOPHILS % 0.6 % (0.0-2.0); HEMATOCRIT. 34.7 % (42.0-52.0); HEMOGLOBIN. 11.8 g/dL (14.0-18.0); LYMPHOCYTES % 12.9 % (20.0-50.0); MEAN CORPUSCULAR HEMOGLOBIN 31.3 pg (28.0-32.0); MEAN CORPUSCULAR VOLUME 92.5 fL (80.0-94.0); MEAN PLATELET VOLUME 7.3 fl (7.4-10.4); MONOCYTES % 8.3 % (2.0-8.0); NEUTROPHILS % 78.2 % (40.0-76.0); PLATELET 59 x1000/uL (130-400); RED BLOOD CELL COUNT 3.75 mill/uL (4.7-6.1); RED CELL DISTRIBUTION WIDTH 16.9 % (11.6-14.6)
[2019-01-07 06:32] LABS: CHLORIDE 85 mEq/L (98-107)
[2019-01-07 06:36] LABS: ETHANOL BLOOD 88 mg/dL
[2019-01-07] MEDS ORDERED: POTASSIUM CHLORIDE 20MEQ TABLET SR PO ONE (07:00)
[2019-01-07] MEDS ORDERED: CHLORDIAZEPOXIDE 25MG CAPSULE PO ONE (07:15)
[2019-01-07] MEDS ORDERED: SODIUM CHLORIDE 0.9% 1,000 ML IV ONE (07:18)
[2019-01-07] MEDS ORDERED: ONDANSETRON HCL 4MG/2ML INJ IV ONE (07:30)
[2019-01-07 10:00] VITALS: BP 132/84
== END 2019-01-07 10:00 | disposition home or self-care (01) ==
LOC: ER 05:11
DX: F10.239 Alcohol dependence with withdrawal, unspecified (principal); M79.18 Myalgia, other site; D64.9 Anemia, unspecified; Y90.4 Blood alcohol level of 80-99 mg/100 ml; Y08.89XA Assault by other specified means, initial encounter
CPT/HCPCS: 36415; 80053; 80320; 85025; 96374; 96375; 99284; J1885; J2060; J2405; J7030; Z7610; G0480

== ENCOUNTER 2019-03-10 03:53 | Emergency (ER) | payer SELFPAY ==
[~2019-03-10] VITALS: Ht 167.6 cm; Wt 68.0 kg
[2019-03-10 05:15] LABS: BASOPHILS % 0.3 % (0.0-2.0); EOSINOPHILS % 0.2 % (0.0-5.0); HEMATOCRIT. 35.1 % (42.0-52.0); HEMOGLOBIN. 11.9 g/dL (14.0-18.0); LYMPHOCYTES % 21.3 % (20.0-50.0); MEAN CORPUSCULAR HEMOGLOBIN 31.8 pg (28.0-32.0); MEAN CORPUSCULAR VOLUME 93.6 fL (80.0-94.0); MEAN PLATELET VOLUME 7.5 fl (7.4-10.4); MONOCYTES % 6.9 % (2.0-8.0); NEUTROPHILS % 71.3 % (40.0-76.0); PLATELET 85 x1000/uL (130-400); RED BLOOD CELL COUNT 3.75 mill/uL (4.7-6.1); RED CELL DISTRIBUTION WIDTH 16.2 % (11.6-14.6)
[2019-03-10 05:23] LABS: CHLORIDE 103 mEq/L (98-107)
[2019-03-10 05:48] LABS: ETHANOL BLOOD 499 mg/dL
[2019-03-10] MEDS ORDERED: FOLIC ACID 1 MG, THIAMINE HCL 100 MG, MVI, ADULT NO.1 10 ML in DEXTROSE 5% WATER 1,000 ML IV ONE ×4 (06:00)
[2019-03-10] MEDS ORDERED: ONDANSETRON HCL 4MG/2ML INJ IV ONE (06:30)
[2019-03-10] MEDS ORDERED: SODIUM CHLORIDE 0.9% 1,000 ML IV ONE (09:34)
[2019-03-10 10:26] LABS: CLARITY URINE CLEAR (CLEAR); COLOR URINE YELLOW (YELLOW); KETONES URINE NEGATIVE (NEGATIVE); LEUKOCYTE ESTERASE URINE NEGATIVE (NEGATIVE); NITRITE URINE NEGATIVE (NEGATIVE); OCCULT BLOOD URINE NEGATIVE (NEGATIVE); PROTEIN URINE NEGATIVE (NEGATIVE); SPECIFIC GRAVITY URINE 1.006 (1.005-1.030)
[2019-03-10] MEDS ORDERED: POTASSIUM CHLORIDE 20MEQ TABLET SR PO ONE (10:30)
[2019-03-10 10:31] LABS: *AMPHETAMINES SCREEN URINE NEGATIVE (NEGATIVE)
[2019-03-10 10:32] LABS: *BARBITURATES SCREEN URINE NEGATIVE (NEGATIVE); *BENZODIAZEPINES SCREEN URINE NEGATIVE (NEGATIVE); *COCAINE SCREEN URINE NEGATIVE (NEGATIVE)
[2019-03-10 10:33] LABS: METHADONE URINE SCREEN NEGATIVE (NEGATIVE)
[2019-03-10 10:34] LABS: CANNABINOID URINE SCREEN NEGATIVE (NEGATIVE); OPIATES URINE SCREEN NEGATIVE (NEGATIVE); PHENCYCLIDINE URINE SCREEN NEGATIVE (NEGATIVE)
[2019-03-10] MEDS ORDERED: LORAZEPAM 2MG/ML CPJ IV ONE (11:30)
[2019-03-10 13:17] VITALS: BP 114/90
== END 2019-03-10 13:56 | disposition home or self-care (01) ==
LOC: ER 03:53
DX: F10.229 Alcohol dependence with intoxication, unspecified (principal); G92 Toxic encephalopathy; F32.9 Major depressive disorder, single episode, unspecified; R45.851 Suicidal ideations; R41.82 Altered mental status, unspecified; Y90.8 Blood alcohol level of 240 mg/100 ml or more
CPT/HCPCS: 36415; 80053; 80305; 80320; 81003; 85025; 96361; 96365; 96366; 96375; 99283; J2060; J2405; J3411; J3490; J7030; J7070; G0480

== ENCOUNTER 2019-03-11 00:38 | Emergency (ER) | payer SELFPAY ==
[~2019-03-11] VITALS: Ht 165.1 cm; Wt 77.0 kg
[2019-03-11 00:51] VITALS: BP 128/75
== END 2019-03-11 03:09 | disposition left against medical advice (07) ==
LOC: ER 00:38
DX: Z53.21 Procedure and treatment not carried out due to patient leaving prior to being seen by health care provider (principal)

== ENCOUNTER 2019-03-13 05:11 | Inpatient (IN) | payer SELFPAY ==
[2019-03-13] VITALS (7 sets, daily range): BP systolic 117–152; BP diastolic 64–87
[~2019-03-13] VITALS: Ht 170.2 cm; Wt 79.8 kg
[2019-03-13] MEDS ORDERED: SODIUM CHLORIDE 0.9% 1,000 ML IV ONE ×2 (06:17→09:31)
[2019-03-13] MEDS ORDERED: KETOROLAC 30MG/ML VIAL IV STA (06:17)
[2019-03-13] MEDS ORDERED: CHLORDIAZEPOXIDE 25MG CAPSULE PO ONE (06:30)
[2019-03-13 06:32] LABS: BASOPHILS % 0.4 % (0.0-2.0); EOSINOPHILS % 0.5 % (0.0-5.0); HEMATOCRIT. 33.3 % (42.0-52.0); HEMOGLOBIN. 11.2 g/dL (14.0-18.0); MEAN CORPUSCULAR HEMOGLOBIN 31.8 pg (28.0-32.0); MEAN CORPUSCULAR VOLUME 94.2 fL (80.0-94.0); MEAN PLATELET VOLUME 7.6 fl (7.4-10.4); MONOCYTES % 6.7 % (2.0-8.0); NEUTROPHILS % 66.4 % (40.0-76.0); RED BLOOD CELL COUNT 3.54 mill/uL (4.7-6.1); RED CELL DISTRIBUTION WIDTH 16.4 % (11.6-14.6)
[2019-03-13 06:33] LABS: CHLORIDE 102 mEq/L (98-107)
[2019-03-13 06:36] LABS: CLARITY URINE CLEAR (CLEAR); COLOR URINE DARK YELLOW (YELLOW); KETONES URINE TRACE (NEGATIVE); LEUKOCYTE ESTERASE URINE NEGATIVE (NEGATIVE); NITRITE URINE NEGATIVE (NEGATIVE); OCCULT BLOOD URINE NEGATIVE (NEGATIVE); PH URINE 6.5 (4.5-8.0); PROTEIN URINE TRACE (NEGATIVE); SPECIFIC GRAVITY URINE 1.011 (1.005-1.030)
[2019-03-13 06:53] LABS: *AMPHETAMINES SCREEN URINE NEGATIVE (NEGATIVE); *BARBITURATES SCREEN URINE NEGATIVE (NEGATIVE); *BENZODIAZEPINES SCREEN URINE NEGATIVE (NEGATIVE); *COCAINE SCREEN URINE NEGATIVE (NEGATIVE); METHADONE URINE SCREEN NEGATIVE (NEGATIVE); OPIATES URINE SCREEN NEGATIVE (NEGATIVE)
[2019-03-13 06:54] LABS: CANNABINOID URINE SCREEN NEGATIVE (NEGATIVE); PHENCYCLIDINE URINE SCREEN NEGATIVE (NEGATIVE)
[2019-03-13] MEDS ORDERED: POTASSIUM CHLORIDE 20MEQ TABLET SR PO ONE (07:45)
[2019-03-13 08:52] LABS: PLATELET 48 x1000/uL (130-400); PLATELET ESTIMATE MARKEDLY DECREASED
[2019-03-13] MEDS ORDERED: ONDANSETRON HCL 4MG/2ML INJ IV ONE (09:30)
[2019-03-13 09:54] LABS: HEMATOCRIT 29.8 % (42.0-52.0); HEMOGLOBIN 10.1 g/dL (14.0-18.0)
[2019-03-13 10:02] LABS: INR 1.4; PROTHROMBIN TIME 14.3 sec (9.6-11.0)
[2019-03-13] MEDS ORDERED: PANTOPRAZOLE SODIUM 40 MG/VIAL IV SCH ×2 (10:15→21:00)
[2019-03-13] MEDS ORDERED: CLONIDINE 0.1MG TABLET PO PRN (10:45)
[2019-03-13] MEDS ORDERED: GUAIFENESIN 200MG/10ML SUGAR FREE UDC PO PRN (10:45)
[2019-03-13] MEDS ORDERED: LORAZEPAM 2MG/ML CPJ IV PRN (10:45)
[2019-03-13] MEDS ORDERED: IPRATROPIUM/ALBUTEROL 0.5-3(2.5)MG/3ML NEB INH PRN (10:45)
[2019-03-13] MEDS ORDERED: HYDROCODONE/ACETAMINOPHEN 5/325MG TABLET PO PRN (10:45)
[2019-03-13] MEDS ORDERED: DOCUSATE SODIUM 100MG CAPSULE PO PRN (10:45)
[2019-03-13] MEDS ORDERED: MORPHINE SULFATE 2 MG/ML CPJ (NOT FOR IM USE) IV PRN (10:45)
[2019-03-13] MEDS ORDERED: MAGNESIUM/ALUMINUM HYDROXIDE/SIMETHICONE 30ML UDC PO PRN (10:45)
[2019-03-13] MEDS ORDERED: ONDANSETRON HCL 4MG/2ML INJ IV PRN (15:00)
[2019-03-13 15:28] LABS: CHLORIDE 105 mEq/L (98-107)
[2019-03-13 15:34] LABS: TOTAL IRON BINDING CAPACITY 349 ug/dL (250-450)
[2019-03-13 15:48] LABS: FOLIC ACID (FOLATE) SERUM 4.1 ng/mL (>5.38)
[2019-03-13 16:25] LABS: HEMATOCRIT 21.2 % (42.0-52.0); HEMOGLOBIN 7.1 g/dL (14.0-18.0)
[2019-03-13] MEDS ORDERED: SUCRALFATE 1 G/10 ML UDC PO NR (16:28)
[2019-03-13] MEDS ORDERED: OCTREOTIDE 1,000 MCG in SODIUM CHLORIDE 0.9% 100 ML IV NR ×2 (16:29→16:45)
[2019-03-13] MEDS ORDERED: SODIUM CHLORIDE 0.9% 10ML VIAL ONE (16:47)
[2019-03-13] MEDS ORDERED: SUCCINYLCHOLINE CHLORIDE 200MG/10ML IV ONE ×2 (16:47→17:00)
[2019-03-13] MEDS ORDERED: ETOMIDATE 2MG/ML 10ML VIAL IV ONE ×2 (16:47→17:00)
[2019-03-13] MEDS ORDERED: VECURONIUM BROMIDE 10 MG/VIAL IV ONE ×2 (16:47→17:00)
[2019-03-13] MEDS ORDERED: LORAZEPAM 2MG/ML CPJ IV ONE (17:00)
[2019-03-13] MEDS ORDERED: MIDAZOLAM HCL 50 MG in DEXTROSE 5% WATER 40 ML IV ONE (17:00)
[2019-03-13] MEDS ORDERED: FENTANYL CITRATE/PF 500 MCG in SODIUM CHLORIDE 0.9% 40 ML IV PRN (17:15)
[2019-03-13 17:47] LABS: AMYLASE 76 IU/L (25-115)
[2019-03-13 17:55] LABS: BG BASE EXCESS -4.2 mmol/L (-2.0-2.0); BG CARBOXYHEMOGLOBIN 0.3 % (0.5-1.5); BG DEOXYHEMOGLOBIN 0.7 % (0.0-5.0); BG FRACTION INSPIRED OXYGEN 100; BG HCO3 ACT 20.7 mmol/L (22.0-26.0); BG METHEMOGLOBIN 0.5 % (0.0-1.5); BG OXYGEN SATURATION 99.3 % (92.0-98.5); BG OXYHEMOGLOBIN 98.5 % (94.0-97.0); BG PH 7.365 (7.350-7.450); BG PO2 496.1 mmHg (75.0-100.0); BG SAMPLE SITE RIGHT RADIAL; BG TIDAL VOLUME(mL) 450 mL; BG TOTAL HEMOGLOBIN 8.7 g/dL (12.0-18.0); BG VENT MODE VENT - A/C; BG VENT RATE 14 set
[2019-03-13 17:59] LABS: CHLORIDE 108 mEq/L (98-107)
[2019-03-13 18:01] LABS: INR 1.5; PARTIAL THROMBOPLASTIN TIME 29.1 sec (23.4-31.0); PROTHROMBIN TIME 15.2 sec (9.6-11.0)
[2019-03-13 18:03] LABS: BASOPHILS % 0.1 % (0.0-2.0); HEMATOCRIT. 26.2 % (42.0-52.0); HEMOGLOBIN. 9.1 g/dL (14.0-18.0); LYMPHOCYTES % 9.4 % (20.0-50.0); MEAN CORPUSCULAR HEMOGLOBIN 32.3 pg (28.0-32.0); MEAN PLATELET VOLUME 7.7 fl (7.4-10.4); MONOCYTES % 5.6 % (2.0-8.0); NEUTROPHILS % 84.9 % (40.0-76.0); PLATELET 69 x1000/uL (130-400); RED BLOOD CELL COUNT 2.82 mill/uL (4.7-6.1); RED CELL DISTRIBUTION WIDTH 16.5 % (11.6-14.6)
[2019-03-13] MEDS: PROPOFOL 10MG/ML 100ML 100 ML IV PRN (18:15)
[2019-03-13 20:31] LABS: HEMOGLOBIN 8.8 g/dL (14.0-18.0); MEAN CORPUSCULAR HEMOGLOBIN 32.3 pg (28.0-32.0); MEAN CORPUSCULAR VOLUME 91.6 fL (80.0-94.0); PLATELET 63 x1000/uL (130-400); RED BLOOD CELL COUNT 2.73 mill/uL (4.7-6.1); RED CELL DISTRIBUTION WIDTH 16.2 % (11.6-14.6)
[2019-03-13] MEDS ORDERED: NA PHOS,M-B/NA PHOS,DI-BA ENEMA 118ML PR PRN (21:00)
[2019-03-13] MEDS ORDERED: IPRATROPIUM/ALBUTEROL 0.5-3(2.5)MG/3ML NEB HHN PRN (22:08)
[2019-03-13] MEDS ORDERED: SODIUM CHLORIDE 0.45% 1,000 ML IV SCH (22:30)
[2019-03-13 23:51] LABS: BASOPHILS % 0.2 % (0.0-2.0); HEMOGLOBIN. 8.4 g/dL (14.0-18.0); LYMPHOCYTES % 13.4 % (20.0-50.0); MEAN CORPUSCULAR HEMOGLOBIN 32.5 pg (28.0-32.0); MEAN CORPUSCULAR VOLUME 92.5 fL (80.0-94.0); MEAN PLATELET VOLUME 7.7 fl (7.4-10.4); MONOCYTES % 5.7 % (2.0-8.0); NEUTROPHILS % 80.7 % (40.0-76.0); PLATELET 61 x1000/uL (130-400); RED BLOOD CELL COUNT 2.59 mill/uL (4.7-6.1); RED CELL DISTRIBUTION WIDTH 16.6 % (11.6-14.6)
[2019-03-14] VITALS (101 sets, daily range): BP systolic 108–152; BP diastolic 54–92
[2019-03-14] MEDS: PROPOFOL 10MG/ML 100ML 100 ML IV PRN ×2 (01:29→07:29)
[2019-03-14] MEDS: FENTANYL CITRATE/PF 500 MCG in SODIUM CHLORIDE 0.9% 40 ML IV PRN ×4 (01:32→18:56)
[2019-03-14] MEDS: IPRATROPIUM/ALBUTEROL 0.5-3(2.5)MG/3ML NEB HHN SCH ×2 (02:19→20:20)
[2019-03-14] MEDS ORDERED: FOLIC ACID 1 MG, THIAMINE HCL 100 MG, MVI, ADULT NO.1 10 ML in DEXTROSE 5% WATER 1,000 ML IV SCH ×4 (05:15)
[2019-03-14] MEDS ORDERED: THIAMINE HCL 100 MG in SODIUM CHLORIDE 0.9% 49 ML IV ONE (05:15)
[2019-03-14] MEDS ORDERED: FOLIC ACID 1 MG in SODIUM CHLORIDE 0.9% 500 ML IV ONE (05:15)
[2019-03-14 05:38] LABS: BASOPHILS % 0.3 % (0.0-2.0); EOSINOPHILS % 0.2 % (0.0-5.0); HEMATOCRIT. 24.8 % (42.0-52.0); HEMOGLOBIN. 8.7 g/dL (14.0-18.0); LYMPHOCYTES % 23.7 % (20.0-50.0); MEAN CORPUSCULAR HEMOGLOBIN 32.1 pg (28.0-32.0); MEAN CORPUSCULAR VOLUME 91.7 fL (80.0-94.0); NEUTROPHILS % 70.8 % (40.0-76.0); PLATELET 53 x1000/uL (130-400); RED CELL DISTRIBUTION WIDTH 16.6 % (11.6-14.6)
[2019-03-14 05:43] LABS: CHLORIDE 105 mEq/L (98-107)
[2019-03-14 05:53] LABS: LDL CHOLESTEROL 97 mg/dL (5-100); PHOSPHORUS 1.8 mg/dL (2.5-4.9)
[2019-03-14 05:54] LABS: HDL CHOLESTEROL 35 mg/dL (40-59); T4 FREE 0.92 ng/dL (0.76-1.46)
[2019-03-14 06:03] LABS: INR 1.4; PARTIAL THROMBOPLASTIN TIME 29.6 sec (23.4-31.0); PROTHROMBIN TIME 14.5 sec (9.6-11.0)
[2019-03-14] MEDS: SUCRALFATE 1 G/10 ML UDC PO SCH ×4 (06:09→20:57)
[2019-03-14] MEDS ORDERED: [UNRECOGNIZED DRUG - REMARK] IV ONE ×3 (06:45)
[2019-03-14] MEDS ORDERED: MAGNESIUM 2 G PREMIX 50 ML IV ONE (07:00)
[2019-03-14] MEDS ORDERED: POTASSIUM PHOS,M-BASIC-D-BASIC 15 MMOL in DEXT 5% WATER 245 ML IV ONE (07:00)
[2019-03-14 07:51] LABS: HEMATOCRIT 24.4 % (42.0-52.0); HEMOGLOBIN 8.7 g/dL (14.0-18.0); MEAN CORPUSCULAR HEMOGLOBIN 32.3 pg (28.0-32.0); MEAN CORPUSCULAR VOLUME 90.6 fL (80.0-94.0); RED BLOOD CELL COUNT 2.69 mill/uL (4.7-6.1); RED CELL DISTRIBUTION WIDTH 16.2 % (11.6-14.6)
[2019-03-14] MEDS ORDERED: THIAMINE HCL 100 MG in SODIUM CHLORIDE 0.9% 49 ML IV NR (08:00)
[2019-03-14 08:33] LABS: BG BASE EXCESS 1.6 mmol/L (-2.0-2.0); BG CARBOXYHEMOGLOBIN 0.3 % (0.5-1.5); BG FRACTION INSPIRED OXYGEN 40; BG HCO3 ACT 23.3 mmol/L (22.0-26.0); BG METHEMOGLOBIN 0.3 % (0.0-1.5); BG OXYHEMOGLOBIN 97.4 % (94.0-97.0); BG PCO2 25.8 mmHg (35.0-45.0); BG PH 7.574 (7.350-7.450); BG PO2 110.2 mmHg (75.0-100.0); BG SAMPLE SITE RIGHT RADIAL; BG TIDAL VOLUME(mL) 500 mL; BG VENT MODE VENT - A/C; BG VENT RATE 14 set
[2019-03-14] MEDS ORDERED: SIMETHICONE 40 MG/0.6 ML 30ML ONE (08:44)
[2019-03-14] MEDS ORDERED: FOLIC ACID 1 MG in SODIUM CHLORIDE 0.9% 50 ML IV NR (09:00)
[2019-03-14] MEDS: PANTOPRAZOLE SODIUM 40 MG/VIAL IV SCH ×2 (09:59→17:45)
[2019-03-14] MEDS ORDERED: FENTANYL CITRATE/PF 50MCG/ML 2ML VIAL ONE (10:40)
[2019-03-14] MEDS ORDERED: MIDAZOLAM HCL 5 MG/5 ML VIAL ONE (10:40)
[2019-03-14] MEDS ORDERED: PROPOFOL 10MG/ML 100ML 100 ML IV PRN (11:30)
[2019-03-14] MEDS: OCTREOTIDE 1,000 MCG in SODIUM CHLORIDE 0.9% 98 ML IV PRN (11:31)
[2019-03-14 11:40] LABS: PLATELET 50 x1000/uL (130-400)
[2019-03-14 12:42] LABS: HEMOGLOBIN 7.8 g/dL (14.0-18.0); MEAN CORPUSCULAR HEMOGLOBIN 32.3 pg (28.0-32.0); MEAN CORPUSCULAR VOLUME 91.4 fL (80.0-94.0); PLATELET 54 x1000/uL (130-400); RED BLOOD CELL COUNT 2.41 mill/uL (4.7-6.1); RED CELL DISTRIBUTION WIDTH 16.2 % (11.6-14.6)
[2019-03-14 13:06] LABS: T4 FREE 0.88 ng/dL (0.76-1.46)
[2019-03-14] MEDS: MIDAZOLAM HCL 100 MG in DEXT 5% WATER 80 ML IV PRN ×2 (13:09→21:56)
[2019-03-14] MEDS: DEXT 5%/0.45% NACL 1000ML 1,000 ML IV SCH ×3 (14:42→22:08)
[2019-03-14 14:53] LABS: HEMATOCRIT 22.5 % (42.0-52.0); HEMOGLOBIN 7.8 g/dL (14.0-18.0); MEAN CORPUSCULAR HEMOGLOBIN 31.8 pg (28.0-32.0); MEAN CORPUSCULAR VOLUME 91.6 fL (80.0-94.0); RED BLOOD CELL COUNT 2.45 mill/uL (4.7-6.1); RED CELL DISTRIBUTION WIDTH 16.5 % (11.6-14.6)
[2019-03-14 15:04] LABS: CREATINE KINASE 97 IU/L (39-308)
[2019-03-14 15:07] LABS: CREATINE KINASE MB FRACTION < 1.0 ng/mL (0.5-3.6)
[2019-03-14 15:09] LABS: PLATELET 46 x1000/uL (130-400)
[2019-03-14] MEDS ORDERED: ACETAMINOPHEN 650MG SUPP PR PRN (15:45)
[2019-03-14 18:55] LABS: HEMOGLOBIN 8.2 g/dL (14.0-18.0); MEAN CORPUSCULAR HEMOGLOBIN 32.3 pg (28.0-32.0); MEAN CORPUSCULAR VOLUME 90.8 fL (80.0-94.0); RED BLOOD CELL COUNT 2.54 mill/uL (4.7-6.1); RED CELL DISTRIBUTION WIDTH 16.2 % (11.6-14.6)
[2019-03-14 18:58] LABS: PLATELET 44 x1000/uL (130-400)
[2019-03-14] MEDS ORDERED: DEXTROSE 50% WATER 50ML SYRINGE IV PRN (19:30)
[2019-03-14] MEDS: INSULIN LISPRO 100 UNITS/ML SUBCUT SCH (21:00)
[2019-03-14] MEDS: BLOOD SUGAR DIAGNOSTIC STRIP TEST SCH (21:04)
[2019-03-14 22:14] LABS: CREATINE KINASE 94 IU/L (39-308)
[2019-03-14 22:15] LABS: CREATINE KINASE MB FRACTION < 1.0 ng/mL (0.5-3.6)
[2019-03-14 22:30] LABS: HEMATOCRIT 25.6 % (42.0-52.0); HEMOGLOBIN 8.9 g/dL (14.0-18.0); MEAN CORPUSCULAR HEMOGLOBIN 32.1 pg (28.0-32.0); MEAN CORPUSCULAR VOLUME 92.3 fL (80.0-94.0); RED BLOOD CELL COUNT 2.77 mill/uL (4.7-6.1); RED CELL DISTRIBUTION WIDTH 16.1 % (11.6-14.6)
[2019-03-14 22:33] LABS: PLATELET 48 x1000/uL (130-400)
[2019-03-15] VITALS (88 sets, daily range): BP systolic 85–140; BP diastolic 41–80
[2019-03-15] MEDS: FENTANYL CITRATE/PF 500 MCG in SODIUM CHLORIDE 0.9% 40 ML IV PRN ×4 (00:27→20:09)
[2019-03-15] MEDS: IPRATROPIUM/ALBUTEROL 0.5-3(2.5)MG/3ML NEB HHN SCH ×3 (02:16→20:14)
[2019-03-15] MEDS: SUCRALFATE 1 G/10 ML UDC PO SCH ×4 (05:46→20:07)
[2019-03-15 05:51] LABS: CREATINE KINASE 75 IU/L (39-308); CREATINE KINASE MB FRACTION < 1.0 ng/mL (0.5-3.6)
[2019-03-15] MEDS: INSULIN LISPRO 100 UNITS/ML SUBCUT SCH ×4 (06:01→20:48)
[2019-03-15] MEDS: BLOOD SUGAR DIAGNOSTIC STRIP TEST SCH ×4 (06:01→20:48)
[2019-03-15] MEDS: DEXT 5%/0.45% NACL 1000ML 1,000 ML IV SCH ×3 (06:15→22:47)
[2019-03-15] MEDS: OCTREOTIDE 1,000 MCG in SODIUM CHLORIDE 0.9% 98 ML IV PRN (06:28)
[2019-03-15] MEDS: PANTOPRAZOLE SODIUM 40 MG/VIAL IV SCH ×2 (08:14→17:51)
[2019-03-15] MEDS: MIDAZOLAM HCL 100 MG in DEXT 5% WATER 80 ML IV PRN ×2 (08:31→20:09)
[2019-03-15 08:36] LABS: HEMATOCRIT 25.2 % (42.0-52.0); HEMOGLOBIN 8.6 g/dL (14.0-18.0); MEAN CORPUSCULAR HEMOGLOBIN 31.6 pg (28.0-32.0); RED BLOOD CELL COUNT 2.73 mill/uL (4.7-6.1); RED CELL DISTRIBUTION WIDTH 16.3 % (11.6-14.6)
[2019-03-15 08:40] LABS: PLATELET 41 x1000/uL (130-400)
[2019-03-15 11:21] LABS: BG BASE EXCESS -1.4 mmol/L (-2.0-2.0); BG CARBOXYHEMOGLOBIN 0.3 % (0.5-1.5); BG DEOXYHEMOGLOBIN 3.6 % (0.0-5.0); BG FRACTION INSPIRED OXYGEN 100; BG HCO3 ACT 23.1 mmol/L (22.0-26.0); BG METHEMOGLOBIN 0.3 % (0.0-1.5); BG OXYGEN SATURATION 96.4 % (92.0-98.5); BG OXYHEMOGLOBIN 95.8 % (94.0-97.0); BG PCO2 37.3 mmHg (35.0-45.0); BG PH 7.409 (7.350-7.450); BG PO2 100.9 mmHg (75.0-100.0); BG SAMPLE SITE RIGHT RADIAL; BG TIDAL VOLUME(mL) 500 mL; BG TOTAL HEMOGLOBIN 8.1 g/dL (12.0-18.0); BG VENT MODE VENT - A/C; BG VENT RATE 14 set
[2019-03-15] MEDS: CEFEPIME 1,000 MG in DEXTROSE 5% WATER 50 ML IV SCH (15:00)
[2019-03-15] MEDS: METRONIDAZOLE 500 MG PREMIX 100 ML IV SCH ×2 (15:02→22:47)
[2019-03-15 16:14] LABS: HEMATOCRIT 26.9 % (42.0-52.0); HEMOGLOBIN 9.2 g/dL (14.0-18.0); MEAN CORPUSCULAR HEMOGLOBIN 32.1 pg (28.0-32.0); MEAN CORPUSCULAR VOLUME 93.4 fL (80.0-94.0); RED BLOOD CELL COUNT 2.88 mill/uL (4.7-6.1); RED CELL DISTRIBUTION WIDTH 16.4 % (11.6-14.6)
[2019-03-15 16:30] LABS: PLATELET 45 x1000/uL (130-400)
[2019-03-15] MEDS ORDERED: SODIUM CHLORIDE 0.9% 500 ML IV ONE (17:00)
[2019-03-15 18:15] LABS: HEMATOCRIT 25.4 % (42.0-52.0); HEMOGLOBIN 8.8 g/dL (14.0-18.0); MEAN CORPUSCULAR HEMOGLOBIN 32.4 pg (28.0-32.0); MEAN CORPUSCULAR VOLUME 93.4 fL (80.0-94.0); RED BLOOD CELL COUNT 2.72 mill/uL (4.7-6.1); RED CELL DISTRIBUTION WIDTH 16.1 % (11.6-14.6)
[2019-03-15 18:33] LABS: PLATELET 44 x1000/uL (130-400)
[2019-03-15 21:59] LABS: HEMATOCRIT 25.2 % (42.0-52.0); HEMOGLOBIN 8.6 g/dL (14.0-18.0); MEAN CORPUSCULAR HEMOGLOBIN 32.2 pg (28.0-32.0); MEAN CORPUSCULAR VOLUME 94.3 fL (80.0-94.0); RED BLOOD CELL COUNT 2.67 mill/uL (4.7-6.1); RED CELL DISTRIBUTION WIDTH 16.2 % (11.6-14.6)
[2019-03-15 22:03] LABS: PLATELET 35 x1000/uL (130-400)
[2019-03-15] MEDS ORDERED: IOHEXOL-350 100 ML BOTTLE ONE (23:09)
[2019-03-16] VITALS (102 sets, daily range): BP systolic 79–125; BP diastolic 36–97
[2019-03-16] MEDS: PHENYLEPHRINE 20 MG in DEXT 5% WATER 248 ML IV PRN ×3 (00:01→20:32)
[2019-03-16] MEDS: IPRATROPIUM/ALBUTEROL 0.5-3(2.5)MG/3ML NEB HHN SCH ×4 (00:33→20:29)
[2019-03-16] MEDS: CEFEPIME 1,000 MG in DEXTROSE 5% WATER 50 ML IV SCH ×2 (02:49→13:55)
[2019-03-16] MEDS: OCTREOTIDE 1,000 MCG in SODIUM CHLORIDE 0.9% 98 ML IV PRN (04:40)
[2019-03-16 05:45] LABS: BASOPHILS % 0.2 % (0.0-2.0); EOSINOPHILS % 1.2 % (0.0-5.0); HEMATOCRIT. 23.7 % (42.0-52.0); HEMOGLOBIN. 7.9 g/dL (14.0-18.0); LYMPHOCYTES % 11.5 % (20.0-50.0); MEAN CORPUSCULAR HEMOGLOBIN 31.5 pg (28.0-32.0); MEAN CORPUSCULAR VOLUME 94.8 fL (80.0-94.0); MEAN PLATELET VOLUME 9.8 fl (7.4-10.4); MONOCYTES % 7.9 % (2.0-8.0); NEUTROPHILS % 79.2 % (40.0-76.0); PLATELET 55 x1000/uL (130-400); RED CELL DISTRIBUTION WIDTH 16.1 % (11.6-14.6)
[2019-03-16 05:48] LABS: CHLORIDE 104 mEq/L (98-107)
[2019-03-16] MEDS: SUCRALFATE 1 G/10 ML UDC PO SCH ×4 (05:59→20:30)
[2019-03-16] MEDS: BLOOD SUGAR DIAGNOSTIC STRIP TEST SCH ×4 (05:59→20:31)
[2019-03-16] MEDS: INSULIN LISPRO 100 UNITS/ML SUBCUT SCH ×4 (06:00→20:37)
[2019-03-16] MEDS: METRONIDAZOLE 500 MG PREMIX 100 ML IV SCH ×3 (06:02→22:05)
[2019-03-16] MEDS: DEXT 5%/0.45% NACL 1000ML 1,000 ML IV SCH ×2 (06:02→09:43)
[2019-03-16] MEDS: FENTANYL CITRATE/PF 500 MCG in SODIUM CHLORIDE 0.9% 40 ML IV PRN ×2 (06:33→20:38)
[2019-03-16 07:39] LABS: BG BASE EXCESS -2.7 mmol/L (-2.0-2.0); BG CARBOXYHEMOGLOBIN 0.1 % (0.5-1.5); BG DEOXYHEMOGLOBIN 0.6 % (0.0-5.0); BG HCO3 ACT 23.4 mmol/L (22.0-26.0); BG METHEMOGLOBIN 0.3 % (0.0-1.5); BG OXYGEN SATURATION 99.4 % (92.0-98.5); BG PCO2 46.7 mmHg (35.0-45.0); BG PH 7.318 (7.350-7.450); BG PO2 275.5 mmHg (75.0-100.0); BG SAMPLE SITE RIGHT RADIAL; BG TIDAL VOLUME(mL) 500 mL; BG TOTAL HEMOGLOBIN 8.8 g/dL (12.0-18.0); BG VENT MODE VENT - A/C; BG VENT RATE 14 set
[2019-03-16] MEDS ORDERED: PROPRANOLOL HCL 10MG TABLET PO SCH (09:00)
[2019-03-16] MEDS ORDERED: POTASSIUM CHLORIDE INJ 40 MEQ in DEXT 5% WATER 250 ML IV NR (09:00)
[2019-03-16] MEDS: PANTOPRAZOLE SODIUM 40 MG/VIAL IV SCH ×2 (09:42→17:53)
[2019-03-16] MEDS ORDERED: LACTULOSE 300 ML in WATER FOR IRRIGATION,STERILE 700 ML IR SCH (10:00)
[2019-03-16] MEDS: MIDAZOLAM HCL 100 MG in DEXT 5% WATER 80 ML IV PRN (13:54)
[2019-03-16 16:07] LABS: HEMATOCRIT 22.6 % (42.0-52.0); HEMOGLOBIN 7.6 g/dL (14.0-18.0); MEAN CORPUSCULAR HEMOGLOBIN 31.6 pg (28.0-32.0); MEAN CORPUSCULAR VOLUME 94.2 fL (80.0-94.0); PLATELET 60 x1000/uL (130-400); RED CELL DISTRIBUTION WIDTH 16.4 % (11.6-14.6)
[2019-03-16 16:25] LABS: INR 2.1; PROTHROMBIN TIME 21.3 sec (9.6-11.0)
[2019-03-16] MEDS: PHYTONADIONE 10MG/ML AMP SUBCUT SCH (17:49)
[2019-03-16] MEDS: LACTULOSE 300 ML in WATER FOR IRRIGATION,STERILE 700 ML IR SCH (22:57)
[2019-03-17] VITALS (99 sets, daily range): BP systolic 104–143; BP diastolic 47–105
[2019-03-17] MEDS: CEFEPIME 1,000 MG in DEXTROSE 5% WATER 50 ML IV SCH ×2 (02:01→14:44)
[2019-03-17] MEDS: OCTREOTIDE 1,000 MCG in SODIUM CHLORIDE 0.9% 98 ML IV PRN (02:01)
[2019-03-17] MEDS: IPRATROPIUM/ALBUTEROL 0.5-3(2.5)MG/3ML NEB HHN SCH ×4 (02:12→20:38)
[2019-03-17] MEDS: DEXT 5%/0.45% NACL 1000ML 1,000 ML IV SCH ×3 (03:30→21:44)
[2019-03-17 06:07] LABS: BASOPHILS % 0.3 % (0.0-2.0); EOSINOPHILS % 1.1 % (0.0-5.0); HEMATOCRIT. 26.8 % (42.0-52.0); HEMOGLOBIN. 9.2 g/dL (14.0-18.0); LYMPHOCYTES % 9.6 % (20.0-50.0); MEAN CORPUSCULAR HEMOGLOBIN 31.6 pg (28.0-32.0); MEAN CORPUSCULAR VOLUME 92.4 fL (80.0-94.0); MEAN PLATELET VOLUME 7.9 fl (7.4-10.4); MONOCYTES % 12.6 % (2.0-8.0); NEUTROPHILS % 76.4 % (40.0-76.0); PLATELET 72 x1000/uL (130-400)
[2019-03-17 06:14] LABS: INR 1.7; PROTHROMBIN TIME 16.8 sec (9.6-11.0)
[2019-03-17 06:16] LABS: CHLORIDE 106 mEq/L (98-107)
[2019-03-17] MEDS: SUCRALFATE 1 G/10 ML UDC PO SCH ×4 (06:18→20:58)
[2019-03-17] MEDS: PHENYLEPHRINE 20 MG in DEXT 5% WATER 248 ML IV PRN ×3 (06:19→17:18)
[2019-03-17] MEDS: METRONIDAZOLE 500 MG PREMIX 100 ML IV SCH ×3 (06:21→21:41)
[2019-03-17 06:24] LABS: PHOSPHORUS 1.7 mg/dL (2.5-4.9)
[2019-03-17] MEDS: BLOOD SUGAR DIAGNOSTIC STRIP TEST SCH ×4 (06:37→20:57)
[2019-03-17] MEDS: INSULIN LISPRO 100 UNITS/ML SUBCUT SCH ×4 (06:38→20:57)
[2019-03-17 08:11] LABS: BG BASE EXCESS -0.3 mmol/L (-2.0-2.0); BG CARBOXYHEMOGLOBIN 0.3 % (0.5-1.5); BG DEOXYHEMOGLOBIN 2.5 % (0.0-5.0); BG FRACTION INSPIRED OXYGEN 40; BG HCO3 ACT 24.3 mmol/L (22.0-26.0); BG METHEMOGLOBIN 0.2 % (0.0-1.5); BG OXYGEN SATURATION 97.5 % (92.0-98.5); BG PCO2 39.7 mmHg (35.0-45.0); BG PH 7.405 (7.350-7.450); BG PO2 109.3 mmHg (75.0-100.0); BG SAMPLE SITE RIGHT RADIAL; BG TIDAL VOLUME(mL) 500 mL; BG TOTAL HEMOGLOBIN 9.4 g/dL (12.0-18.0); BG VENT MODE VENT - A/C; BG VENT RATE 16 set
[2019-03-17] MEDS: PANTOPRAZOLE SODIUM 40 MG/VIAL IV SCH ×2 (08:43→17:32)
[2019-03-17] MEDS: PHYTONADIONE 10MG/ML AMP SUBCUT SCH (08:45)
[2019-03-17] MEDS ORDERED: POTASSIUM PHOS M BASIC D BASIC IV SCH (09:00)
[2019-03-17] MEDS ORDERED: MAGNESIUM 2 G PREMIX 50 ML IV SCH (09:00)
[2019-03-17] MEDS ORDERED: WATER IV SCH (09:00)
[2019-03-17] MEDS ORDERED: DEXT 5% IV SCH (09:00)
[2019-03-17] MEDS: LACTULOSE 300 ML in WATER FOR IRRIGATION,STERILE 700 ML IR SCH ×2 (09:56→22:24)
[2019-03-17] MEDS ORDERED: OXYMETAZOLINE HCL NASAL SPRAY 15ML BOTHNSTRLS PRN (10:30)
[2019-03-17] MEDS: FENTANYL CITRATE/PF 500 MCG in SODIUM CHLORIDE 0.9% 40 ML IV PRN (11:04)
[2019-03-17 16:59] LABS: HEMATOCRIT 27.3 % (42.0-52.0); HEMOGLOBIN 9.4 g/dL (14.0-18.0)
[2019-03-17 19:25] LABS: HEMATOCRIT 26.3 % (42.0-52.0)
[2019-03-18] VITALS (86 sets, daily range): BP systolic 96–136; BP diastolic 48–86
[2019-03-18] MEDS: OCTREOTIDE 1,000 MCG in SODIUM CHLORIDE 0.9% 98 ML IV PRN ×2 (01:06→21:13)
[2019-03-18] MEDS: CEFEPIME 1,000 MG in DEXTROSE 5% WATER 50 ML IV SCH ×2 (01:17→13:19)
[2019-03-18 01:43] LABS: HEMATOCRIT 26.3 % (42.0-52.0)
[2019-03-18] MEDS: IPRATROPIUM/ALBUTEROL 0.5-3(2.5)MG/3ML NEB HHN SCH ×5 (02:16→20:11)
[2019-03-18 05:56] LABS: HEMATOCRIT. 25.9 % (42.0-52.0); MEAN CORPUSCULAR HEMOGLOBIN 31.9 pg (28.0-32.0); MEAN CORPUSCULAR VOLUME 91.5 fL (80.0-94.0); MEAN PLATELET VOLUME 7.7 fl (7.4-10.4); PLATELET 83 x1000/uL (130-400); RED BLOOD CELL COUNT 2.82 mill/uL (4.7-6.1); RED CELL DISTRIBUTION WIDTH 17.2 % (11.6-14.6)
[2019-03-18] MEDS: BLOOD SUGAR DIAGNOSTIC STRIP TEST SCH ×4 (05:58→21:14)
[2019-03-18] MEDS: SUCRALFATE 1 G/10 ML UDC PO SCH ×4 (05:58→21:00)
[2019-03-18 06:06] LABS: CHLORIDE 105 mEq/L (98-107)
[2019-03-18] MEDS: DEXT 5%/0.45% NACL 1000ML 1,000 ML IV SCH (06:22)
[2019-03-18] MEDS: INSULIN LISPRO 100 UNITS/ML SUBCUT SCH ×4 (06:22→21:00)
[2019-03-18] MEDS: METRONIDAZOLE 500 MG PREMIX 100 ML IV SCH ×3 (06:22→21:13)
[2019-03-18] MEDS: FENTANYL CITRATE/PF 500 MCG in SODIUM CHLORIDE 0.9% 40 ML IV PRN (08:23)
[2019-03-18 08:44] LABS: BG BASE EXCESS 0.3 mmol/L (-2.0-2.0); BG CARBOXYHEMOGLOBIN 0.3 % (0.5-1.5); BG DEOXYHEMOGLOBIN 1.6 % (0.0-5.0); BG METHEMOGLOBIN 0.1 % (0.0-1.5); BG OXYGEN SATURATION 98.4 % (92.0-98.5); BG PCO2 40.2 mmHg (35.0-45.0); BG PH 7.411 (7.350-7.450); BG PO2 133.9 mmHg (75.0-100.0); BG SAMPLE SITE RIGHT RADIAL; BG TOTAL HEMOGLOBIN 9.6 g/dL (12.0-18.0)
[2019-03-18 08:58] LABS: BG TIDAL VOLUME(mL) 500 mL; BG VENT RATE 16 set
[2019-03-18] MEDS: PHYTONADIONE 10MG/ML AMP SUBCUT SCH (09:13)
[2019-03-18] MEDS: PANTOPRAZOLE SODIUM 40 MG/VIAL IV SCH ×2 (09:13→16:36)
[2019-03-18] MEDS: LACTULOSE 300 ML in WATER FOR IRRIGATION,STERILE 700 ML IR SCH (09:26)
[2019-03-18 09:45] LABS: BG FRACTION INSPIRED OXYGEN 40; BG VENT MODE A/C
[2019-03-18 09:46] LABS: BG FLOW(L/min) 0 L/min
[2019-03-18 11:22] LABS: PLATELET ESTIMATE DECREASED
[2019-03-18] MEDS ORDERED: POTASSIUM CHLORIDE INJ 40 MEQ in DEXT 5% WATER 250 ML IV NR (11:30)
[2019-03-18] MEDS ORDERED: FOLIC ACID 1 MG, MVI, ADULT NO.1 10 ML, THIAMINE HCL 100 MG in DEXT 5%/0.45% NACL 1000M... IV SCH ×4 (12:00)
[2019-03-18] MEDS ORDERED: LORAZEPAM 2MG/ML CPJ IM PRN (16:15)
[2019-03-19] VITALS (48 sets, daily range): BP systolic 93–139; BP diastolic 55–83
[2019-03-19] MEDS ORDERED: POTASSIUM CHLORIDE INJ 40 MEQ in DEXT 5% WATER 500 ML IV NR ×2
[2019-03-19] MEDS: IPRATROPIUM/ALBUTEROL 0.5-3(2.5)MG/3ML NEB HHN SCH ×6 (00:27→20:31)
[2019-03-19] MEDS: CEFEPIME 1,000 MG in DEXTROSE 5% WATER 50 ML IV SCH ×2 (02:43→14:20)
[2019-03-19] MEDS: METRONIDAZOLE 500 MG PREMIX 100 ML IV SCH ×3 (05:53→21:10)
[2019-03-19] MEDS: BLOOD SUGAR DIAGNOSTIC STRIP TEST SCH ×4 (06:03→20:18)
[2019-03-19] MEDS: INSULIN LISPRO 100 UNITS/ML SUBCUT SCH ×4 (06:03→20:17)
[2019-03-19] MEDS: SUCRALFATE 1 G/10 ML UDC PO SCH ×4 (06:03→20:18)
[2019-03-19 07:34] LABS: CHLORIDE 107 mEq/L (98-107)
[2019-03-19 07:36] LABS: HEMATOCRIT. 27.5 % (42.0-52.0); HEMOGLOBIN. 9.4 g/dL (14.0-18.0); MEAN CORPUSCULAR HEMOGLOBIN 32.3 pg (28.0-32.0); MEAN PLATELET VOLUME 8.6 fl (7.4-10.4); PLATELET 82 x1000/uL (130-400); RED BLOOD CELL COUNT 2.92 mill/uL (4.7-6.1); RED CELL DISTRIBUTION WIDTH 17.4 % (11.6-14.6)
[2019-03-19 08:06] LABS: BG CARBOXYHEMOGLOBIN 0.3 % (0.5-1.5); BG DEOXYHEMOGLOBIN 2.2 % (0.0-5.0); BG FRACTION INSPIRED OXYGEN 40; BG HCO3 ACT 23.2 mmol/L (22.0-26.0); BG OXYGEN SATURATION 97.8 % (92.0-98.5); BG OXYHEMOGLOBIN 97.5 % (94.0-97.0); BG PCO2 36.7 mmHg (35.0-45.0); BG PH 7.419 (7.350-7.450); BG SAMPLE SITE RIGHT RADIAL; BG TIDAL VOLUME(mL) 500 mL; BG TOTAL HEMOGLOBIN 10.9 g/dL (12.0-18.0); BG VENT MODE VENT - A/C; BG VENT RATE 16 set
[2019-03-19] MEDS: PANTOPRAZOLE SODIUM 40 MG/VIAL IV SCH ×2 (09:32→16:01)
[2019-03-19] MEDS: LACTULOSE 300 ML in WATER FOR IRRIGATION,STERILE 700 ML IR SCH (09:56)
[2019-03-19 11:41] LABS: PLATELET ESTIMATE DECREASED
[2019-03-19] MEDS: LORAZEPAM 2MG/ML CPJ IV PRN ×2 (13:16→18:26)
[2019-03-19] MEDS: OCTREOTIDE 1,000 MCG in SODIUM CHLORIDE 0.9% 98 ML IV PRN (14:23)
[2019-03-19] MEDS: FOLIC ACID 1 MG, MVI, ADULT NO.1 10 ML, THIAMINE HCL 100 MG in DEXT 5%/0.45% NACL 1000M... IV SCH ×4 (16:00)
[2019-03-20] VITALS (79 sets, daily range): BP systolic 107–136; BP diastolic 60–102
[2019-03-20] MEDS: IPRATROPIUM/ALBUTEROL 0.5-3(2.5)MG/3ML NEB HHN SCH ×6 (00:19→20:14)
[2019-03-20] MEDS: LORAZEPAM 2MG/ML CPJ IV PRN ×3 (01:05→23:52)
[2019-03-20] MEDS: CEFEPIME 1,000 MG in DEXTROSE 5% WATER 50 ML IV SCH ×2 (01:05→14:31)
[2019-03-20] MEDS: MIDAZOLAM HCL 50 MG in DEXTROSE 5% WATER 40 ML IV PRN ×2 (01:45→06:29)
[2019-03-20] MEDS: FENTANYL CITRATE/PF 500 MCG in SODIUM CHLORIDE 0.9% 40 ML IV PRN ×3 (01:46→20:21)
[2019-03-20 05:12] LABS: HEMATOCRIT. 26.4 % (42.0-52.0); HEMOGLOBIN. 9.2 g/dL (14.0-18.0); MEAN CORPUSCULAR HEMOGLOBIN 32.3 pg (28.0-32.0); MEAN CORPUSCULAR VOLUME 92.6 fL (80.0-94.0); MEAN PLATELET VOLUME 7.5 fl (7.4-10.4); PLATELET 116 x1000/uL (130-400); RED BLOOD CELL COUNT 2.85 mill/uL (4.7-6.1); RED CELL DISTRIBUTION WIDTH 17.1 % (11.6-14.6)
[2019-03-20 05:18] LABS: INR 1.7; PROTHROMBIN TIME 17.2 sec (9.6-11.0)
[2019-03-20 05:21] LABS: CHLORIDE 105 mEq/L (98-107)
[2019-03-20] MEDS: METRONIDAZOLE 500 MG PREMIX 100 ML IV SCH ×3 (05:34→21:41)
[2019-03-20] MEDS: SUCRALFATE 1 G/10 ML UDC PO SCH ×4 (05:34→21:00)
[2019-03-20] MEDS: INSULIN LISPRO 100 UNITS/ML SUBCUT SCH ×4 (06:06→21:00)
[2019-03-20] MEDS: BLOOD SUGAR DIAGNOSTIC STRIP TEST SCH ×4 (06:06→21:40)
[2019-03-20 07:17] LABS: PLATELET ESTIMATE SLIGHTLY DECREASED
[2019-03-20] MEDS ORDERED: POTASSIUM CHLORIDE INJ 40 MEQ in DEXT 5% WATER 500 ML IV NR (08:00)
[2019-03-20] MEDS: PANTOPRAZOLE SODIUM 40 MG/VIAL IV SCH ×2 (08:16→17:33)
[2019-03-20] MEDS: LACTULOSE 300 ML in WATER FOR IRRIGATION,STERILE 700 ML IR SCH ×2 (08:26→13:41)
[2019-03-20 08:52] LABS: BG CARBOXYHEMOGLOBIN 0.3 % (0.5-1.5); BG DEOXYHEMOGLOBIN 2.4 % (0.0-5.0); BG FRACTION INSPIRED OXYGEN 40; BG HCO3 ACT 23.6 mmol/L (22.0-26.0); BG METHEMOGLOBIN 0.3 % (0.0-1.5); BG OXYGEN SATURATION 97.6 % (92.0-98.5); BG PCO2 34.1 mmHg (35.0-45.0); BG PH 7.458 (7.350-7.450); BG PO2 102.4 mmHg (75.0-100.0); BG SAMPLE SITE RIGHT RADIAL; BG TIDAL VOLUME(mL) 500 mL; BG TOTAL HEMOGLOBIN 9.4 g/dL (12.0-18.0); BG VENT MODE VENT - A/C; BG VENT RATE 16 set
[2019-03-20] MEDS: OCTREOTIDE 1,000 MCG in SODIUM CHLORIDE 0.9% 98 ML IV PRN (11:35)
[2019-03-20] MEDS: FOLIC ACID 1 MG, MVI, ADULT NO.1 10 ML, THIAMINE HCL 100 MG in DEXT 5%/0.45% NACL 1000M... IV SCH ×4 (16:06)
[2019-03-20 16:59] LABS: PHOSPHORUS 0.9 mg/dL (2.5-4.9)
[2019-03-20] MEDS ORDERED: MAGNESIUM 2 G PREMIX 50 ML IV SCH (20:00)
[2019-03-20] MEDS ORDERED: POTASSIUM PHOS,M-BASIC-D-BASIC 30 MMOL in DEXT 5% WATER 500 ML IV SCH (20:30)
[2019-03-21] VITALS (91 sets, daily range): BP systolic 107–158; BP diastolic 64–108
[2019-03-21] MEDS: IPRATROPIUM/ALBUTEROL 0.5-3(2.5)MG/3ML NEB HHN SCH ×6 (00:10→20:23)
[2019-03-21] MEDS: CEFEPIME 1,000 MG in DEXTROSE 5% WATER 50 ML IV SCH ×2 (02:42→13:12)
[2019-03-21] MEDS: LORAZEPAM 2MG/ML CPJ IV PRN ×4 (03:24→19:08)
[2019-03-21] MEDS: FENTANYL CITRATE/PF 500 MCG in SODIUM CHLORIDE 0.9% 40 ML IV PRN ×2 (03:24→07:14)
[2019-03-21 05:36] LABS: CHLORIDE 106 mEq/L (98-107)
[2019-03-21 05:46] LABS: HEMATOCRIT. 25.7 % (42.0-52.0); HEMOGLOBIN. 8.9 g/dL (14.0-18.0); MEAN CORPUSCULAR HEMOGLOBIN 32.2 pg (28.0-32.0); MEAN CORPUSCULAR VOLUME 92.8 fL (80.0-94.0); MEAN PLATELET VOLUME 7.7 fl (7.4-10.4); PLATELET 155 x1000/uL (130-400); RED BLOOD CELL COUNT 2.77 mill/uL (4.7-6.1); RED CELL DISTRIBUTION WIDTH 16.7 % (11.6-14.6)
[2019-03-21] MEDS: BLOOD SUGAR DIAGNOSTIC STRIP TEST SCH ×5 (06:30→21:35)
[2019-03-21] MEDS: SUCRALFATE 1 G/10 ML UDC PO SCH (06:30)
[2019-03-21] MEDS: METRONIDAZOLE 500 MG PREMIX 100 ML IV SCH ×3 (06:46→22:12)
[2019-03-21] MEDS: INSULIN LISPRO 100 UNITS/ML SUBCUT SCH ×4 (06:49→21:00)
[2019-03-21] MEDS: PANTOPRAZOLE SODIUM 40 MG/VIAL IV SCH ×2 (09:13→17:09)
[2019-03-21] MEDS: LACTULOSE 300 ML in WATER FOR IRRIGATION,STERILE 700 ML IR SCH (09:15)
[2019-03-21 11:08] LABS: PHOSPHORUS 3.3 mg/dL (2.5-4.9)
[2019-03-21 12:47] LABS: BG BASE EXCESS -1.3 mmol/L (-2.0-2.0); BG CARBOXYHEMOGLOBIN 0.1 % (0.5-1.5); BG DEOXYHEMOGLOBIN 5.1 % (0.0-5.0); BG FRACTION INSPIRED OXYGEN 40; BG HCO3 ACT 23.1 mmol/L (22.0-26.0); BG METHEMOGLOBIN 0.2 % (0.0-1.5); BG OXYGEN SATURATION 94.9 % (92.0-98.5); BG OXYHEMOGLOBIN 94.6 % (94.0-97.0); BG PCO2 37.4 mmHg (35.0-45.0); BG PH 7.409 (7.350-7.450); BG PO2 76.7 mmHg (75.0-100.0); BG PRESSURE SUPPORT 8; BG SAMPLE SITE RIGHT RADIAL; BG TOTAL HEMOGLOBIN 8.9 g/dL (12.0-18.0); BG VENT MODE VENT - CPAP
[2019-03-21 14:25] LABS: PLATELET ESTIMATE NORMAL
[2019-03-21] MEDS: FOLIC ACID 1 MG, MVI, ADULT NO.1 10 ML, THIAMINE HCL 100 MG in DEXT 5%/0.45% NACL 1000M... IV SCH ×4 (16:05)
[2019-03-21] MEDS: DIPHENHYDRAMINE 50MG/ML VIAL IV PRN (20:02)
[2019-03-22] VITALS (37 sets, daily range): BP systolic 103–166; BP diastolic 52–108
[2019-03-22] MEDS: IPRATROPIUM/ALBUTEROL 0.5-3(2.5)MG/3ML NEB HHN SCH ×5 (00:25→16:18)
[2019-03-22] MEDS: CEFEPIME 1,000 MG in DEXTROSE 5% WATER 50 ML IV SCH ×2 (02:00→14:17)
[2019-03-22] MEDS: DIPHENHYDRAMINE 50MG/ML VIAL IV PRN (03:56)
[2019-03-22] MEDS: METRONIDAZOLE 500 MG PREMIX 100 ML IV SCH ×3 (06:47→21:33)
[2019-03-22] MEDS: BLOOD SUGAR DIAGNOSTIC STRIP TEST SCH ×2 (06:47→11:30)
[2019-03-22] MEDS: INSULIN LISPRO 100 UNITS/ML SUBCUT SCH ×4 (07:00→21:00)
[2019-03-22] MEDS: PANTOPRAZOLE SODIUM 40 MG/VIAL IV SCH ×2 (11:08→17:00)
[2019-03-22] MEDS: ACETAMINOPHEN 325MG TABLET PO PRN (11:09)
[2019-03-22] MEDS ORDERED: LACTULOSE 20G/30ML UDC PO NR (11:15)
[2019-03-22] MEDS: FOLIC ACID 1 MG, MVI, ADULT NO.1 10 ML, THIAMINE HCL 100 MG in DEXT 5%/0.45% NACL 1000M... IV SCH ×4 (17:00)
[2019-03-22] MEDS: LACTULOSE 20G/30ML UDC PO SCH (21:32)
[2019-03-23] VITALS (15 sets, daily range): BP systolic 118–154; BP diastolic 82–104
[2019-03-23] MEDS: IPRATROPIUM/ALBUTEROL 0.5-3(2.5)MG/3ML NEB HHN SCH ×5 (00:23→20:14)
[2019-03-23] MEDS: BLOOD SUGAR DIAGNOSTIC STRIP TEST SCH ×3 (07:30→17:27)
[2019-03-23] MEDS: INSULIN LISPRO 100 UNITS/ML SUBCUT SCH ×4 (08:00→21:00)
[2019-03-23] MEDS: PANTOPRAZOLE SODIUM 40 MG/VIAL IV SCH ×2 (08:54→17:31)
[2019-03-23] MEDS: LACTULOSE 20G/30ML UDC PO SCH ×2 (08:54→21:02)
[2019-03-23] MEDS: LORAZEPAM 2MG/ML CPJ IV PRN (10:29)
[2019-03-23] MEDS: FOLIC ACID 1 MG, MVI, ADULT NO.1 10 ML, THIAMINE HCL 100 MG in DEXT 5%/0.45% NACL 1000M... IV SCH ×4 (16:56)
[2019-03-23] MEDS: DIPHENHYDRAMINE 50MG/ML VIAL IV PRN (21:02)
[2019-03-24] VITALS (13 sets, daily range): BP systolic 106–139; BP diastolic 70–95
[2019-03-24] MEDS: IPRATROPIUM/ALBUTEROL 0.5-3(2.5)MG/3ML NEB HHN SCH ×6 (00:10→21:17)
[2019-03-24] MEDS: ACETAMINOPHEN 325MG TABLET PO PRN (04:22)
[2019-03-24] MEDS: INSULIN LISPRO 100 UNITS/ML SUBCUT SCH ×4 (07:29→20:19)
[2019-03-24] MEDS: BLOOD SUGAR DIAGNOSTIC STRIP TEST SCH ×4 (07:29→20:19)
[2019-03-24 08:05] LABS: BASOPHILS % 1.2 % (0.0-2.0); EOSINOPHILS % 0.4 % (0.0-5.0); HEMATOCRIT. 28.7 % (42.0-52.0); HEMOGLOBIN. 9.6 g/dL (14.0-18.0); LYMPHOCYTES % 15.7 % (20.0-50.0); MEAN CORPUSCULAR HEMOGLOBIN 30.9 pg (28.0-32.0); MEAN CORPUSCULAR VOLUME 92.2 fL (80.0-94.0); MEAN PLATELET VOLUME 7.1 fl (7.4-10.4); NEUTROPHILS % 76.7 % (40.0-76.0); PLATELET 333 x1000/uL (130-400); RED BLOOD CELL COUNT 3.11 mill/uL (4.7-6.1); RED CELL DISTRIBUTION WIDTH 16.7 % (11.6-14.6)
[2019-03-24 08:29] LABS: CHLORIDE 109 mEq/L (98-107)
[2019-03-24] MEDS: PANTOPRAZOLE SODIUM 40 MG/VIAL IV SCH ×2 (09:25→17:27)
[2019-03-24] MEDS: LACTULOSE 20G/30ML UDC PO SCH ×2 (09:28→20:19)
[2019-03-24] MEDS ORDERED: POTASSIUM CHLORIDE 20MEQ TABLET SR PO NR (11:00)
[2019-03-24] MEDS: FOLIC ACID 1 MG, MVI, ADULT NO.1 10 ML, THIAMINE HCL 100 MG in DEXT 5%/0.45% NACL 1000M... IV SCH ×4 (15:54)
[2019-03-25] VITALS (15 sets, daily range): BP systolic 106–129; BP diastolic 62–87
[2019-03-25] MEDS: IPRATROPIUM/ALBUTEROL 0.5-3(2.5)MG/3ML NEB HHN SCH ×6 (01:03→21:39)
[2019-03-25] MEDS: DIPHENHYDRAMINE 50MG/ML VIAL IV PRN (04:53)
[2019-03-25] MEDS: BLOOD SUGAR DIAGNOSTIC STRIP TEST SCH ×4 (07:30→20:52)
[2019-03-25] MEDS: INSULIN LISPRO 100 UNITS/ML SUBCUT SCH ×4 (08:00→21:00)
[2019-03-25] MEDS: PANTOPRAZOLE SODIUM 40 MG/VIAL IV SCH ×2 (08:52→17:27)
[2019-03-25] MEDS: LACTULOSE 20G/30ML UDC PO SCH ×2 (08:53→20:51)
[2019-03-25 09:37] LABS: CHLORIDE 110 mEq/L (98-107)
[2019-03-25] MEDS ORDERED: POTASSIUM CHLORIDE 20MEQ TABLET SR PO NR (11:00)
[2019-03-25] MEDS: LORAZEPAM 2MG/ML CPJ IV PRN ×3 (12:40→20:52)
[2019-03-25] MEDS: FOLIC ACID 1 MG, MVI, ADULT NO.1 10 ML, THIAMINE HCL 100 MG in DEXT 5%/0.45% NACL 1000M... IV SCH ×4 (15:18)
[2019-03-25] MEDS: CHLORDIAZEPOXIDE 25MG CAPSULE PO SCH ×2 (17:28→20:52)
[2019-03-26] VITALS: BP 126/75
[2019-03-26] MEDS: IPRATROPIUM/ALBUTEROL 0.5-3(2.5)MG/3ML NEB HHN SCH ×4 (00:50→11:44)
[2019-03-26] MEDS: CHLORDIAZEPOXIDE 25MG CAPSULE PO SCH ×2 (06:19→14:12)
[2019-03-26 07:36] LABS: EOSINOPHILS % 0.3 % (0.0-5.0); HEMATOCRIT. 30.1 % (42.0-52.0); HEMOGLOBIN. 10.1 g/dL (14.0-18.0); MEAN CORPUSCULAR HEMOGLOBIN 31.1 pg (28.0-32.0); MEAN CORPUSCULAR VOLUME 92.5 fL (80.0-94.0); MEAN PLATELET VOLUME 7.6 fl (7.4-10.4); MONOCYTES % 4.4 % (2.0-8.0); NEUTROPHILS % 81.3 % (40.0-76.0); PLATELET 431 x1000/uL (130-400); RED BLOOD CELL COUNT 3.25 mill/uL (4.7-6.1); RED CELL DISTRIBUTION WIDTH 16.8 % (11.6-14.6)
[2019-03-26] MEDS: BLOOD SUGAR DIAGNOSTIC STRIP TEST SCH ×2 (07:39→12:03)
[2019-03-26 07:46] LABS: CHLORIDE 110 mEq/L (98-107)
[2019-03-26] MEDS: INSULIN LISPRO 100 UNITS/ML SUBCUT SCH ×2 (07:50→12:04)
[2019-03-26 08:00] VITALS: BP 122/77
[2019-03-26] MEDS: LACTULOSE 20G/30ML UDC PO SCH (09:00)
[2019-03-26] MEDS: PANTOPRAZOLE SODIUM 40 MG/VIAL IV SCH (10:16)
[2019-03-26] MEDS: LORAZEPAM 2MG/ML CPJ IV PRN (10:17)
[2019-03-26 11:36] VITALS: BP 128/84
[2019-03-26] MEDS: FOLIC ACID 1 MG, MVI, ADULT NO.1 10 ML, THIAMINE HCL 100 MG in DEXT 5%/0.45% NACL 1000M... IV SCH ×4 (11:54)
[2019-03-26] MEDS ORDERED: THIAMINE HCL 100MG TABLET PO SCH (13:00)
[2019-03-26] MEDS ORDERED: BENZONATATE 100MG CAPSULE PO PRN (13:00)
[2019-03-26] MEDS ORDERED: FOLIC ACID 1MG TABLET PO SCH (13:00)
[2019-03-26 15:03] VITALS: BP 108/67
[2019-03-26 15:34] VITALS: BP 108/67
[2019-03-26] MEDS ORDERED: PANTOPRAZOLE 40MG DR TABLET PO SCH (21:00)
[2019-03-27] MEDS ORDERED: LACTULOSE 20G/30ML UDC PO SCH (09:00)
== END 2019-03-26 17:48 | disposition home or self-care (01) | DRG 720 ==
LOC: ER 05:11 → MICUSO 10:38 → CANRESERV 16:19 → ENRESERV 16:19 → EDBEDREQSVC 16:43 → ENRESERV 21:00 → 5EST 03-22 18:40 → 6EST 03-26 01:15
PROVIDERS: ADMIT Internal Medicine; ATTEND Internal Medicine
PROC: 5A1955Z Respiratory Ventilation, Greater than 96 Consecutive Hours (ICD-10-PCS; 2019-03-13)
PROC: 2Y41X5Z Packing of Nasal Region using Packing Material (ICD-10-PCS; 2019-03-13)
PROC: 30233K1 Transfusion of Nonautologous Frozen Plasma into Peripheral Vein, Percutaneous Approach (ICD-10-PCS; 2019-03-13)
PROC: 30233N1 Transfusion of Nonautologous Red Blood Cells into Peripheral Vein, Percutaneous Approach (ICD-10-PCS; 2019-03-13)
PROC: 30233R1 Transfusion of Nonautologous Platelets into Peripheral Vein, Percutaneous Approach (ICD-10-PCS; 2019-03-13)
PROC: 0BH17EZ Insertion of Endotracheal Airway into Trachea, Via Natural or Artificial Opening (ICD-10-PCS; 2019-03-13)
PROC: 06HY33Z Insertion of Infusion Device into Lower Vein, Percutaneous Approach (ICD-10-PCS; 2019-03-13)
PROC: 06L38CZ Occlusion of Esophageal Vein with Extraluminal Device, Via Natural or Artificial Opening Endoscopic (ICD-10-PCS; principal; 2019-03-14)
DX: A41.9 Sepsis, unspecified organism (principal); J96.00 Acute respiratory failure, unspecified whether with hypoxia or hypercapnia; K72.00 Acute and subacute hepatic failure without coma; J69.0 Pneumonitis due to inhalation of food and vomit; G93.41 Metabolic encephalopathy; I85.11 Secondary esophageal varices with bleeding; D62 Acute posthemorrhagic anemia; E86.0 Dehydration; T51.0X1A Toxic effect of ethanol, accidental (unintentional), initial encounter; D68.4 Acquired coagulation factor deficiency; D69.59 Other secondary thrombocytopenia; E87.6 Hypokalemia; F10.229 Alcohol dependence with intoxication, unspecified; F10.239 Alcohol dependence with withdrawal, unspecified; F41.9 Anxiety disorder, unspecified; I10 Essential (primary) hypertension; F32.9 Major depressive disorder, single episode, unspecified; K70.30 Alcoholic cirrhosis of liver without ascites; K29.70 Gastritis, unspecified, without bleeding; K31.89 Other diseases of stomach and duodenum; K52.9 Noninfective gastroenteritis and colitis, unspecified; K70.9 Alcoholic liver disease, unspecified; K76.0 Fatty (change of) liver, not elsewhere classified; R04.0 Epistaxis; Y92.89 Other specified places as the place of occurrence of the external cause; Z79.899 Other long term (current) drug therapy
CPT/HCPCS: 36415; 36600; 71045; 71275; 74018; 74176; 76700; 80048; 80061; 80076; 80305; 80320; 82140; 82150; 82248; 82375; 82550; 82553; 82607; 82728; 82746; 82805; 82962; 83036; 83540; 83550; 83735; 83880; 84100; 84132; 84439; 84443; 84484; 85014; 85018; 85027; 85379; 86850; 86900; 86920; 86927; 92610; 93005; 93306; 94002; 94003; 94640; 97116; 97162; 97166; 97530; 97535; A6261; C9113; J0330; J0692; J1200; J1815; J1885; J2060; J2250; J2270; J2354; J2370; J2405; J2704; J3010; J3411; J3430; J3475; J3480; J3490; J7030; J7040; J7050; J7060; J7070; J7620; P9016; P9017; P9034; Q9967; G0480

== ENCOUNTER 2019-05-30 07:19 | Inpatient (IN) | payer MEDICAID, OTHER ==
[~2019-05-30] VITALS: Ht 170.2 cm; Wt 65.8 kg
[2019-05-30] MEDS ORDERED: THIA100T72 PO (07:43)
[2019-05-30] MEDS ORDERED: FOLI-43 PO (07:43)
[2019-05-30] MEDS ORDERED: ESCITALOPRAM (07:43)
[2019-05-30] MEDS ORDERED: MULT1TAB63 PO (07:43)
[2019-05-30] MEDS ORDERED: QUET100T33 PO (07:43)
[2019-05-30] MEDS ORDERED: GABA-531 PO (07:43)
[2019-05-30] MEDS ORDERED: SODIUM CHLORIDE 0.9% 1,000 ML IV ONE (07:50)
[2019-05-30] MEDS ORDERED: PANTOPRAZOLE SODIUM 40 MG/VIAL IV STA (07:50)
[2019-05-30 08:40] LABS: BASOPHILS % 0.5 % (0.0-2.0); EOSINOPHILS % 0.1 % (0.0-5.0); HEMATOCRIT. 26.4 % (42.0-52.0); HEMOGLOBIN. 8.5 g/dL (14.0-18.0); MEAN CORPUSCULAR HEMOGLOBIN 27.9 pg (28.0-32.0); MEAN CORPUSCULAR VOLUME 86.1 fL (80.0-94.0); MEAN PLATELET VOLUME 8.7 fl (7.4-10.4); MONOCYTES % 5.2 % (2.0-8.0); NEUTROPHILS % 77.2 % (40.0-76.0); PLATELET 70 x1000/uL (130-400); RED BLOOD CELL COUNT 3.07 mill/uL (4.7-6.1); RED CELL DISTRIBUTION WIDTH 17.8 % (11.6-14.6)
[2019-05-30 08:46] LABS: CHLORIDE 100 mEq/L (98-107)
[2019-05-30 08:47] LABS: INR 1.5; PROTHROMBIN TIME 14.9 sec (9.6-11.0)
[2019-05-30] MEDS ORDERED: MORPHINE SULFATE 4 MG/ML CPJ (NOT FOR IM USE) IV ONE (09:00)
[2019-05-30] MEDS ORDERED: ACETAMINOPHEN 325MG TABLET PO PRN (11:15)
[2019-05-30] MEDS ORDERED: DOCUSATE SODIUM 100MG CAPSULE PO PRN (11:15)
[2019-05-30] MEDS ORDERED: LORAZEPAM 2MG/ML CPJ IV PRN (11:15)
[2019-05-30] MEDS ORDERED: MAGNESIUM/ALUMINUM HYDROXIDE/SIMETHICONE 30ML UDC PO PRN (11:15)
[2019-05-30] MEDS ORDERED: IPRATROPIUM/ALBUTEROL 0.5-3(2.5)MG/3ML NEB HHN PRN (11:15)
[2019-05-30] MEDS ORDERED: CLONIDINE 0.1MG TABLET PO PRN (11:15)
[2019-05-30] MEDS ORDERED: GUAIFENESIN 200MG/10ML SUGAR FREE UDC PO PRN (11:15)
[2019-05-30] MEDS ORDERED: ONDANSETRON HCL 4MG/2ML INJ IV PRN (11:15)
[2019-05-30] MEDS ORDERED: DIPHENHYDRAMINE 50MG/ML VIAL IV PRN (11:15)
[2019-05-30] MEDS: DEXT 5%/0.45% NACL 1000ML 1,000 ML IV SCH ×2 (11:44→21:57)
[2019-05-30] MEDS ORDERED: QUET100T33 MT (13:40)
[2019-05-30] MEDS: SODIUM CHLORIDE 0.9% INJ 3ML FLUSH IVF SCH ×2 (14:20→22:46)
[2019-05-30 15:45] VITALS: BP 103/70
[2019-05-30 15:51] LABS: CREATINE KINASE 30 IU/L (39-308)
[2019-05-30 15:52] LABS: CREATINE KINASE MB FRACTION < 1.0 ng/mL (0.5-3.6)
[2019-05-30] MEDS: MORPHINE SULFATE 2 MG/ML CPJ (NOT FOR IM USE) IV PRN ×2 (16:57→21:57)
[2019-05-30 19:43] LABS: HEMATOCRIT 22.1 % (42.0-52.0); HEMOGLOBIN 7.3 g/dL (14.0-18.0); MEAN CORPUSCULAR HEMOGLOBIN 28.3 pg (28.0-32.0); RED BLOOD CELL COUNT 2.57 mill/uL (4.7-6.1); RED CELL DISTRIBUTION WIDTH 18.3 % (11.6-14.6)
[2019-05-30] MEDS: HYDROCODONE/ACETAMINOPHEN 10/325MG TABLET PO PRN (19:48)
[2019-05-30 19:51] LABS: PLATELET 50 x1000/uL (130-400)
[2019-05-30 20:00] VITALS: BP 111/57
[2019-05-30] MEDS ORDERED: PNEUMOCOCCAL 23-VAL P-SAC VAC 0.5 ML IM ONE (20:00)
[2019-05-30] MEDS: PANTOPRAZOLE SODIUM 40 MG/VIAL IV SCH (21:57)
[2019-05-30] MEDS ORDERED: OCTREOTIDE 1,000 MCG in SODIUM CHLORIDE 0.9% 100 ML IV SCH (22:00)
[2019-05-30 22:22] VITALS: BP 107/62
[2019-05-30 22:37] VITALS: BP 109/62
[2019-05-30] MEDS: OCTREOTIDE 1,000 MCG in SODIUM CHLORIDE 0.9% 100 ML IV SCH (23:18)
[2019-05-30 23:37] VITALS: BP 110/57
[2019-05-31] VITALS: BP 110/57
[2019-05-31 00:37] VITALS: BP 107/70
[2019-05-31 02:32] LABS: *AMPHETAMINES SCREEN URINE NEGATIVE (NEGATIVE); *BARBITURATES SCREEN URINE NEGATIVE (NEGATIVE); *BENZODIAZEPINES SCREEN URINE PRESUMTIVE POSITIVE (NEGATIVE); *COCAINE SCREEN URINE NEGATIVE (NEGATIVE); METHADONE URINE SCREEN NEGATIVE (NEGATIVE); OPIATES URINE SCREEN PRESUMTIVE POSITIVE (NEGATIVE)
[2019-05-31 02:33] LABS: CANNABINOID URINE SCREEN NEGATIVE (NEGATIVE); PHENCYCLIDINE URINE SCREEN NEGATIVE (NEGATIVE)
[2019-05-31 02:34] LABS: HEMATOCRIT 26.4 % (42.0-52.0); HEMOGLOBIN 8.9 g/dL (14.0-18.0)
[2019-05-31 02:37] LABS: INR 1.4; PROTHROMBIN TIME 14.1 sec (9.6-11.0)
[2019-05-31 02:44] LABS: CREATINE KINASE 28 IU/L (39-308)
[2019-05-31 02:46] LABS: CREATINE KINASE MB FRACTION < 1.0 ng/mL (0.5-3.6)
[2019-05-31 04:00] VITALS: BP 105/69
[2019-05-31] MEDS: SODIUM CHLORIDE 0.9% INJ 3ML FLUSH IVF SCH ×3 (05:56→22:35)
[2019-05-31] MEDS: LACTULOSE 20G/30ML UDC PO SCH ×3 (05:56→22:00)
[2019-05-31] MEDS: HYDROCODONE/ACETAMINOPHEN 10/325MG TABLET PO PRN ×2 (05:56→15:32)
[2019-05-31 06:58] LABS: BASOPHILS % 0.5 % (0.0-2.0); EOSINOPHILS % 2.9 % (0.0-5.0); HEMATOCRIT. 25.9 % (42.0-52.0); HEMOGLOBIN. 8.6 g/dL (14.0-18.0); LYMPHOCYTES % 25.7 % (20.0-50.0); MEAN CORPUSCULAR HEMOGLOBIN 28.9 pg (28.0-32.0); MEAN PLATELET VOLUME 8.4 fl (7.4-10.4); MONOCYTES % 5.7 % (2.0-8.0); NEUTROPHILS % 65.2 % (40.0-76.0); PLATELET 51 x1000/uL (130-400); RED BLOOD CELL COUNT 2.97 mill/uL (4.7-6.1); RED CELL DISTRIBUTION WIDTH 18.4 % (11.6-14.6)
[2019-05-31 08:00] VITALS: BP 124/82
[2019-05-31] MEDS: DEXT 5%/0.45% NACL 1000ML 1,000 ML IV SCH ×2 (08:04→18:45)
[2019-05-31] MEDS: PANTOPRAZOLE SODIUM 40 MG/VIAL IV SCH ×2 (08:04→22:35)
[2019-05-31 08:47] LABS: CHLORIDE 105 mEq/L (98-107)
[2019-05-31 08:57] LABS: TOTAL IRON BINDING CAPACITY 371 ug/dL (250-450)
[2019-05-31] MEDS: POTASSIUM CHLORIDE 20MEQ/PACKET PO NR ×2 (10:18→15:58)
[2019-05-31] MEDS ORDERED: PROPOFOL 200MG/20ML VIAL IV ONE (10:31)
[2019-05-31] MEDS ORDERED: MIDAZOLAM HCL 5 MG/5 ML VIAL ONE (10:31)
[2019-05-31] MEDS ORDERED: SUCCINYLCHOLINE CHLORIDE 200MG/10ML IV ONE (10:31)
[2019-05-31] MEDS ORDERED: SIMETHICONE 40 MG/0.6 ML 30ML ONE (10:33)
[2019-05-31] MEDS ORDERED: MAGNESIUM 2 G PREMIX 50 ML IV SCH (12:00)
[2019-05-31] MEDS: MORPHINE SULFATE 2 MG/ML CPJ (NOT FOR IM USE) IV PRN ×3 (12:04→22:37)
[2019-05-31 16:00] VITALS: BP 122/83
[2019-05-31 20:00] VITALS: BP 109/77
[2019-05-31] MEDS: OCTREOTIDE 1,000 MCG in SODIUM CHLORIDE 0.9% 100 ML IV SCH (22:35)
[2019-06-01] VITALS: BP 105/75
[2019-06-01] MEDS: MORPHINE SULFATE 2 MG/ML CPJ (NOT FOR IM USE) IV PRN ×5 (03:07→21:24)
[2019-06-01] MEDS: DEXT 5%/0.45% NACL 1000ML 1,000 ML IV SCH ×2 (03:55→12:50)
[2019-06-01 04:00] VITALS: BP 103/64
[2019-06-01] MEDS: LACTULOSE 20G/30ML UDC PO SCH ×3 (06:00→21:20)
[2019-06-01] MEDS: SODIUM CHLORIDE 0.9% INJ 3ML FLUSH IVF SCH ×3 (06:46→21:19)
[2019-06-01 08:00] VITALS: BP 105/65
[2019-06-01] MEDS: PROPRANOLOL HCL 10MG TABLET PO SCH ×2 (08:09→21:20)
[2019-06-01] MEDS: PANTOPRAZOLE SODIUM 40 MG/VIAL IV SCH ×2 (08:12→21:19)
[2019-06-01 12:00] VITALS: BP 112/71
[2019-06-01 16:00] VITALS: BP 125/82
[2019-06-01] MEDS: OCTREOTIDE 1,000 MCG in SODIUM CHLORIDE 0.9% 100 ML IV SCH (17:22)
[2019-06-01 20:00] VITALS: BP 112/77
[2019-06-02] VITALS: BP 105/70
[2019-06-02] MEDS: MORPHINE SULFATE 2 MG/ML CPJ (NOT FOR IM USE) IV PRN ×5 (02:07→19:43)
[2019-06-02 04:00] VITALS: BP 105/65
[2019-06-02] MEDS: SODIUM CHLORIDE 0.9% INJ 3ML FLUSH IVF SCH ×3 (05:15→20:15)
[2019-06-02] MEDS: LACTULOSE 20G/30ML UDC PO SCH ×4 (06:00→21:34)
[2019-06-02] MEDS: DEXT 5%/0.45% NACL 1000ML 1,000 ML IV SCH (06:22)
[2019-06-02 06:52] LABS: BASOPHILS % 0.7 % (0.0-2.0); EOSINOPHILS % 2.3 % (0.0-5.0); HEMATOCRIT. 24.2 % (42.0-52.0); HEMOGLOBIN. 8.1 g/dL (14.0-18.0); LYMPHOCYTES % 40.1 % (20.0-50.0); MEAN CORPUSCULAR HEMOGLOBIN 29.2 pg (28.0-32.0); MEAN PLATELET VOLUME 7.9 fl (7.4-10.4); MONOCYTES % 11.6 % (2.0-8.0); NEUTROPHILS % 45.3 % (40.0-76.0); PLATELET 55 x1000/uL (130-400); RED BLOOD CELL COUNT 2.78 mill/uL (4.7-6.1); RED CELL DISTRIBUTION WIDTH 19.1 % (11.6-14.6)
[2019-06-02 08:52] VITALS: BP 111/72
[2019-06-02] MEDS: PANTOPRAZOLE SODIUM 40 MG/VIAL IV SCH ×2 (08:54→20:15)
[2019-06-02] MEDS: PROPRANOLOL HCL 10MG TABLET PO SCH ×2 (08:54→20:15)
[2019-06-02 11:13] LABS: CHLORIDE 106 mEq/L (98-107)
[2019-06-02 12:00] VITALS: BP 104/67
[2019-06-02] MEDS: OCTREOTIDE 1,000 MCG in SODIUM CHLORIDE 0.9% 100 ML IV SCH (12:55)
[2019-06-02] MEDS ORDERED: POTASSIUM CHLORIDE 20MEQ/PACKET PO NR ×2 (13:00→17:00)
[2019-06-02] MEDS ORDERED: POTASSIUM CHLORIDE INJ 40 MEQ in DEXT 5% WATER 250 ML IV SCH (14:00)
[2019-06-02 16:00] VITALS: BP 105/75
[2019-06-02 20:00] VITALS: BP 120/85
[2019-06-03] VITALS: BP 101/65
[2019-06-03] MEDS: MORPHINE SULFATE 2 MG/ML CPJ (NOT FOR IM USE) IV PRN ×3 (00:21→09:10)
[2019-06-03 04:00] VITALS: BP 105/65
[2019-06-03] MEDS: LACTULOSE 20G/30ML UDC PO SCH (06:09)
[2019-06-03] MEDS: SODIUM CHLORIDE 0.9% INJ 3ML FLUSH IVF SCH (06:14)
[2019-06-03 06:58] LABS: HEMATOCRIT. 25.2 % (42.0-52.0); HEMOGLOBIN. 8.5 g/dL (14.0-18.0); MEAN CORPUSCULAR HEMOGLOBIN 29.2 pg (28.0-32.0); MEAN CORPUSCULAR VOLUME 86.8 fL (80.0-94.0); MEAN PLATELET VOLUME 8.4 fl (7.4-10.4); PLATELET 79 x1000/uL (130-400); RED CELL DISTRIBUTION WIDTH 19.5 % (11.6-14.6)
[2019-06-03 07:10] LABS: CHLORIDE 105 mEq/L (98-107)
[2019-06-03 08:00] VITALS: BP 109/80
[2019-06-03] MEDS: PROPRANOLOL HCL 10MG TABLET PO SCH (09:00)
[2019-06-03] MEDS: PANTOPRAZOLE SODIUM 40 MG/VIAL IV SCH (09:09)
[2019-06-03 10:43] VITALS: BP 109/80
[2019-06-03 13:07] LABS: PLATELET ESTIMATE SLIGHTLY DECREASED
== END 2019-06-03 11:27 | disposition home or self-care (01) | DRG 241 ==
LOC: ER 07:19 → EDBEDREQ 08:56 → 5WST 09:31 → EDBEDREQTM 09:33 → EDBEDREQ 09:33 → ENRESERV 14:39
PROVIDERS: ADMIT Internal Medicine; ATTEND Internal Medicine
PROC: 30233N1 Transfusion of Nonautologous Red Blood Cells into Peripheral Vein, Percutaneous Approach (ICD-10-PCS; 2019-05-30)
PROC: 06L38CZ Occlusion of Esophageal Vein with Extraluminal Device, Via Natural or Artificial Opening Endoscopic (ICD-10-PCS; principal; 2019-05-31)
DX: K29.71 Gastritis, unspecified, with bleeding (principal); I85.11 Secondary esophageal varices with bleeding; D69.6 Thrombocytopenia, unspecified; K76.6 Portal hypertension; F20.9 Schizophrenia, unspecified; D62 Acute posthemorrhagic anemia; E86.0 Dehydration; K70.30 Alcoholic cirrhosis of liver without ascites; E87.6 Hypokalemia; F32.9 Major depressive disorder, single episode, unspecified; F41.9 Anxiety disorder, unspecified; K44.9 Diaphragmatic hernia without obstruction or gangrene; G47.00 Insomnia, unspecified; K29.70 Gastritis, unspecified, without bleeding; K31.89 Other diseases of stomach and duodenum; K76.0 Fatty (change of) liver, not elsewhere classified; Z79.899 Other long term (current) drug therapy; F10.10 Alcohol abuse, uncomplicated
CPT/HCPCS: 36415; 71045; 74176; 80048; 80076; 80305; 80320; 82140; 82248; 82270; 82550; 82553; 82728; 82977; 83540; 83550; 83735; 84484; 85014; 85018; 85027; 85049; 85384; 86850; 86900; 86920; 93005; 96374; 99285; C9113; J0330; J2250; J2270; J2354; J2704; J3475; J3480; J7030; J7050; J7060; P9016; G0480

== ENCOUNTER 2020-01-24 22:04 | Emergency (ER) | payer MEDICAID ==
[~2020-01-24] VITALS: Ht 167.6 cm; Wt 80.0 kg
[~2020-01-24 22:04] MED LIST changes: -CHLO25CA10 PO; +ESCITALOPRAM; +GABA-531 PO; +MULT1TAB63 PO; +QUET100T33 MT; +QUET100T33 PO; -THIA100T13 PO; +THIA100T72 PO
[2020-01-24 22:56] LABS: BASOPHILS % 0.9 % (0.0-2.0); EOSINOPHILS % 0.3 % (0.0-5.0); HEMATOCRIT. 38.9 % (42.0-52.0); HEMOGLOBIN. 12.8 g/dL (14.0-18.0); LYMPHOCYTES % 33.8 % (20.0-50.0); MEAN CORPUSCULAR HEMOGLOBIN 24.5 pg (28.0-32.0); MEAN CORPUSCULAR VOLUME 74.3 fL (80.0-94.0); MEAN PLATELET VOLUME 7.2 fl (7.4-10.4); MONOCYTES % 3.5 % (2.0-8.0); NEUTROPHILS % 61.5 % (40.0-76.0); PLATELET 252 x1000/uL (130-400); RED BLOOD CELL COUNT 5.24 mill/uL (4.7-6.1)
[2020-01-24 23:02] LABS: CHLORIDE 97 mEq/L (98-107)
[2020-01-24 23:18] LABS: ETHANOL BLOOD 485 mg/dL
[2020-01-24 23:38] LABS: CLARITY URINE CLOUDY (CLEAR); COLOR URINE DARK YELLOW (YELLOW); KETONES URINE 1+ (NEGATIVE); LEUKOCYTE ESTERASE URINE NEGATIVE (NEGATIVE); NITRITE URINE NEGATIVE (NEGATIVE); OCCULT BLOOD URINE NEGATIVE (NEGATIVE); PROTEIN URINE 3+ (NEGATIVE); SPECIFIC GRAVITY URINE 1.024 (1.005-1.030)
[2020-01-24 23:43] LABS: *AMPHETAMINES SCREEN URINE NEGATIVE (NEGATIVE); *BARBITURATES SCREEN URINE NEGATIVE (NEGATIVE); *BENZODIAZEPINES SCREEN URINE NEGATIVE (NEGATIVE)
[2020-01-24 23:44] LABS: *COCAINE SCREEN URINE NEGATIVE (NEGATIVE); CANNABINOID URINE SCREEN NEGATIVE (NEGATIVE); METHADONE URINE SCREEN NEGATIVE (NEGATIVE); OPIATES URINE SCREEN NEGATIVE (NEGATIVE); PHENCYCLIDINE URINE SCREEN NEGATIVE (NEGATIVE)
[2020-01-25 02:00] VITALS: BP 145/78
== END 2020-01-25 02:59 | disposition home or self-care (01) ==
LOC: ER 22:04
DX: F10.229 Alcohol dependence with intoxication, unspecified (principal); R47.81 Slurred speech; Z79.899 Other long term (current) drug therapy; Y90.8 Blood alcohol level of 240 mg/100 ml or more
CPT/HCPCS: 36415; 80053; 80305; 80320; 81003; 85025; 99283; G0480

== ENCOUNTER 2020-01-27 13:11 | Emergency (ER) | payer MEDICAID ==
[~2020-01-27] VITALS: Ht 170.2 cm; Wt 70.0 kg
[2020-01-27] MEDS ORDERED: SODIUM CHLORIDE 0.9% 1,000 ML IV ONE (13:53)
[2020-01-27] MEDS ORDERED: CHLORDIAZEPOXIDE 25MG CAPSULE PO ONE (14:00)
[2020-01-27] MEDS ORDERED: ONDANSETRON HCL 4MG/2ML INJ IV ONE ×2 (14:00→22:00)
[2020-01-27 14:10] LABS: BASOPHILS % 0.6 % (0.0-2.0); EOSINOPHILS % 0.1 % (0.0-5.0); HEMATOCRIT. 36.8 % (42.0-52.0); HEMOGLOBIN. 12.2 g/dL (14.0-18.0); LYMPHOCYTES % 25.1 % (20.0-50.0); MEAN CORPUSCULAR HEMOGLOBIN 24.6 pg (28.0-32.0); MEAN CORPUSCULAR VOLUME 74.1 fL (80.0-94.0); MEAN PLATELET VOLUME 6.8 fl (7.4-10.4); MONOCYTES % 3.9 % (2.0-8.0); NEUTROPHILS % 70.3 % (40.0-76.0); PLATELET 162 x1000/uL (130-400); RED BLOOD CELL COUNT 4.97 mill/uL (4.7-6.1); RED CELL DISTRIBUTION WIDTH 20.6 % (11.6-14.6)
[2020-01-27 14:15] LABS: CHLORIDE 94 mEq/L (98-107)
[2020-01-27] MEDS ORDERED: POTASSIUM CHLORIDE 20MEQ TABLET SR PO ONE (14:30)
[2020-01-27 14:42] LABS: ETHANOL BLOOD 448 mg/dL
[2020-01-27] MEDS ORDERED: LORAZEPAM 1MG TABLET PO ONE (15:30)
[2020-01-27 15:45] LABS: CLARITY URINE CLEAR (CLEAR); COLOR URINE YELLOW (YELLOW); KETONES URINE TRACE (NEGATIVE); LEUKOCYTE ESTERASE URINE NEGATIVE (NEGATIVE); NITRITE URINE NEGATIVE (NEGATIVE); OCCULT BLOOD URINE NEGATIVE (NEGATIVE); PROTEIN URINE 2+ (NEGATIVE); SPECIFIC GRAVITY URINE 1.006 (1.005-1.030)
[2020-01-27 16:19] LABS: METHADONE URINE SCREEN NEGATIVE (NEGATIVE); OPIATES URINE SCREEN NEGATIVE (NEGATIVE)
[2020-01-27 16:20] LABS: *AMPHETAMINES SCREEN URINE NEGATIVE (NEGATIVE); *BARBITURATES SCREEN URINE NEGATIVE (NEGATIVE); *BENZODIAZEPINES SCREEN URINE NEGATIVE (NEGATIVE); *COCAINE SCREEN URINE NEGATIVE (NEGATIVE); CANNABINOID URINE SCREEN NEGATIVE (NEGATIVE); PHENCYCLIDINE URINE SCREEN NEGATIVE (NEGATIVE)
[2020-01-27 22:38] VITALS: BP 107/74
== END 2020-01-27 22:40 | disposition home or self-care (01) ==
LOC: ER 13:29
DX: T51.0X1A Toxic effect of ethanol, accidental (unintentional), initial encounter (principal); R11.2 Nausea with vomiting, unspecified; F10.229 Alcohol dependence with intoxication, unspecified; Y90.8 Blood alcohol level of 240 mg/100 ml or more; Y92.89 Other specified places as the place of occurrence of the external cause; G40.909 Epilepsy, unspecified, not intractable, without status epilepticus; F20.9 Schizophrenia, unspecified; Z86.59 Personal history of other mental and behavioral disorders
CPT/HCPCS: 36415; 71045; 80053; 80305; 80320; 81003; 85025; 93005; 96374; 96376; 99285; J2405; J7030; G0480

== ENCOUNTER 2020-04-07 23:03 | Emergency (ER) | payer MEDICAID ==
[~2020-04-07] VITALS: Ht 177.8 cm; Wt 91.0 kg
[2020-04-07] MEDS ORDERED: SODIUM CHLORIDE 0.9% 1,000 ML IV ONE (23:44)
[2020-04-07] MEDS ORDERED: LORAZEPAM 2MG/ML CPJ IV ONE (23:45)
[2020-04-08 00:08] LABS: CHLORIDE 113 mEq/L (98-107)
[2020-04-08 00:15] LABS: BASOPHILS % 0.9 % (0.0-2.0); EOSINOPHILS % 2.5 % (0.0-5.0); HEMATOCRIT. 36.2 % (42.0-52.0); HEMOGLOBIN. 11.7 g/dL (14.0-18.0); LYMPHOCYTES % 53.4 % (20.0-50.0); MEAN CORPUSCULAR HEMOGLOBIN 24.7 pg (28.0-32.0); MEAN CORPUSCULAR VOLUME 76.2 fL (80.0-94.0); MEAN PLATELET VOLUME 7.6 fl (7.4-10.4); MONOCYTES % 4.2 % (2.0-8.0); PLATELET 236 x1000/uL (130-400); RED BLOOD CELL COUNT 4.76 mill/uL (4.7-6.1); RED CELL DISTRIBUTION WIDTH 20.4 % (11.6-14.6)
[2020-04-08 00:23] LABS: ETHANOL BLOOD 353 mg/dL
[2020-04-08] MEDS ORDERED: CHLORDIAZEPOXIDE 25MG CAPSULE PO ONE (00:30)
[2020-04-08 04:09] VITALS: BP 122/70
== END 2020-04-08 04:11 | disposition home or self-care (01) ==
LOC: ER 23:03
DX: T51.0X1A Toxic effect of ethanol, accidental (unintentional), initial encounter (principal); R07.89 Other chest pain; R00.2 Palpitations; Y92.89 Other specified places as the place of occurrence of the external cause; Z86.59 Personal history of other mental and behavioral disorders
CPT/HCPCS: 36415; 80053; 80320; 84484; 85025; 93005; 96374; 99284; J2060; J7030; G0480

== ENCOUNTER 2021-02-10 20:21 | Emergency (ER) | payer MEDICAID ==
[~2021-02-10] VITALS: Ht 175.3 cm; Wt 84.0 kg
[~2021-02-10 20:21] MED LIST changes: -GABA-531 PO; +GABA-532 PO
[2021-02-10] MEDS ORDERED: CHLORDIAZEPOXIDE 25MG CAPSULE PO ONE (21:00)
[2021-02-10] MEDS ORDERED: ONDANSETRON 4MG ODT PO ONE (21:30)
[2021-02-10 21:56] VITALS: BP 132/79
== END 2021-02-10 21:58 | disposition home or self-care (01) ==
LOC: ER 20:21
DX: F10.129 Alcohol abuse with intoxication, unspecified (principal); Y90.9 Presence of alcohol in blood, level not specified; F32.9 Major depressive disorder, single episode, unspecified; Z63.4 Disappearance and death of family member; F20.9 Schizophrenia, unspecified
CPT/HCPCS: 99283; Q0162

== ENCOUNTER 2022-10-22 18:56 | Emergency (ER) | payer MEDICAID ==
[~2022-10-22] VITALS: Ht 167.6 cm; Wt 75.0 kg
[~2022-10-22 18:56] MED LIST changes: +MULT-624 PO; -MULT1TAB63 PO; -QUET100T33 MT; -QUET100T33 PO; +QUET100T34 MT; +QUET100T34 PO
[2022-10-22] MEDS ORDERED: SODIUM CHLORIDE 0.9% 1,000 ML IV ONE (19:15)
[2022-10-22] MEDS ORDERED: LORAZEPAM 2MG/ML CPJ IV ONE (19:15)
[2022-10-22 19:40] LABS: BASOPHILS % 0.3 % (0.0-2.0); HEMATOCRIT. 45.7 % (42.0-52.0); HEMOGLOBIN. 15.7 g/dL (14.0-18.0); LYMPHOCYTES % 9.8 % (20.0-50.0); MEAN CORPUSCULAR VOLUME 87.3 fL (80.0-94.0); MEAN PLATELET VOLUME 7.6 fl (7.4-10.4); MONOCYTES % 3.4 % (2.0-8.0); NEUTROPHILS % 86.5 % (40.0-76.0); PLATELET 181 x1000/uL (130-400); RED BLOOD CELL COUNT 5.23 mill/uL (4.7-6.1); RED CELL DISTRIBUTION WIDTH 13.8 % (11.6-14.6)
[2022-10-22 20:01] LABS: CHLORIDE 93 mEq/L (98-107)
[2022-10-22 20:16] LABS: ETHANOL BLOOD 388 mg/dL
[2022-10-22 21:25] VITALS: BP 124/78
[2022-10-22 23:29] LABS: *AMPHETAMINES SCREEN URINE NEGATIVE (NEGATIVE); *BARBITURATES SCREEN URINE NEGATIVE (NEGATIVE); *BENZODIAZEPINES SCREEN URINE NEGATIVE (NEGATIVE); *COCAINE SCREEN URINE NEGATIVE (NEGATIVE); CANNABINOID URINE SCREEN PRESUMTIVE POSITIVE (NEGATIVE); METHADONE URINE SCREEN NEGATIVE (NEGATIVE); OPIATES URINE SCREEN NEGATIVE (NEGATIVE); PHENCYCLIDINE URINE SCREEN NEGATIVE (NEGATIVE)
== END 2022-10-23 00:25 | disposition home or self-care (01) ==
LOC: ER 18:56
DX: F10.20 Alcohol dependence, uncomplicated (principal); Z86.59 Personal history of other mental and behavioral disorders; Y90.8 Blood alcohol level of 240 mg/100 ml or more
CPT/HCPCS: 36415; 80053; 80305; 80320; 85025; 96361; 96374; 99283; J2060; J7030; Z7610; G0480

== ENCOUNTER 2022-12-23 10:46 | Emergency (ER) | payer MEDICAID ==
[~2022-12-23] VITALS: Ht 170.2 cm; Wt 88.0 kg
[2022-12-23 12:26] LABS: BASOPHILS % 0.4 % (0.0-2.0); HEMATOCRIT. 45.6 % (42.0-52.0); LYMPHOCYTES % 19.8 % (20.0-50.0); MEAN CORPUSCULAR HEMOGLOBIN 31.1 pg (28.0-32.0); MEAN CORPUSCULAR VOLUME 88.2 fL (80.0-94.0); MEAN PLATELET VOLUME 7.5 fl (7.4-10.4); MONOCYTES % 3.8 % (2.0-8.0); PLATELET 207 x1000/uL (130-400); RED BLOOD CELL COUNT 5.17 mill/uL (4.7-6.1); RED CELL DISTRIBUTION WIDTH 14.7 % (11.6-14.6)
[2022-12-23 12:33] LABS: CHLORIDE 94 mEq/L (98-107)
[2022-12-23 12:36] LABS: INR 1.1; PROTHROMBIN TIME 11.9 sec (9.6-11.0)
[2022-12-23 12:42] LABS: ETHANOL BLOOD 208 mg/dL
[2022-12-23] MEDS ORDERED: CHLORDIAZEPOXIDE 25MG CAPSULE PO NR (14:30)
[2022-12-23] MEDS ORDERED: ONDANSETRON 4MG ODT PO NR (14:30)
[2022-12-23 15:29] LABS: CLARITY URINE CLOUDY (CLEAR); COLOR URINE DARK YELLOW (YELLOW); KETONES URINE 4+ (NEGATIVE); LEUKOCYTE ESTERASE URINE TRACE (NEGATIVE); NITRITE URINE POSITIVE (NEGATIVE); OCCULT BLOOD URINE 1+ (NEGATIVE); PH URINE 5.5 (4.5-8.0); PROTEIN URINE 3+ (NEGATIVE); SPECIFIC GRAVITY URINE 1.028 (1.005-1.030)
[2022-12-23] MEDS ORDERED: CEFP200T13 MT (15:41)
[2022-12-23 15:46] LABS: *AMPHETAMINES SCREEN URINE PRESUMTIVE POSITIVE (NEGATIVE); *BARBITURATES SCREEN URINE NEGATIVE (NEGATIVE); *BENZODIAZEPINES SCREEN URINE NEGATIVE (NEGATIVE); *COCAINE SCREEN URINE NEGATIVE (NEGATIVE); CANNABINOID URINE SCREEN PRESUMTIVE POSITIVE (NEGATIVE); METHADONE URINE SCREEN NEGATIVE (NEGATIVE); OPIATES URINE SCREEN NEGATIVE (NEGATIVE); PHENCYCLIDINE URINE SCREEN NEGATIVE (NEGATIVE)
[2022-12-23 15:51] VITALS: BP 135/89
== END 2022-12-23 17:07 | disposition home or self-care (01) ==
LOC: ER 10:46
DX: N39.0 Urinary tract infection, site not specified (principal); Z79.899 Other long term (current) drug therapy
CPT/HCPCS: 36415; 80053; 80305; 80320; 81003; 83690; 85025; 85610; 93005; 99284; Q0162; G0480

== ENCOUNTER 2023-03-18 02:28 | Emergency (ER) | payer MEDICAID ==
[~2023-03-18] VITALS: Ht 165.1 cm; Wt 82.0 kg
[~2023-03-18 02:28] MED LIST changes: +CEFP200T13 MT
[2023-03-18 02:31] VITALS: O2SAT 100
[2023-03-18] MEDS ORDERED: ONDA4TAB50 MT (02:40)
[2023-03-18] MEDS ORDERED: THIA250T3 MT (02:40)
[2023-03-18] MEDS ORDERED: KEPP500 MT (02:40)
[2023-03-18 02:45] VITALS: BP 138/91; PULSE 91; RESP 15; TEMP 98.2
[2023-03-18] MEDS ORDERED: ONDANSETRON 4MG ODT PO ONE (02:45)
[2023-03-18] MEDS ORDERED: LEVETIRACETAM 500MG TABLET PO ONE (02:45)
[2023-03-18] MEDS ORDERED: MAGNESIUM/ALUMINUM HYDROXIDE/SIMETHICONE 30ML UDC PO ONE (02:45)
[2023-03-18] MEDS ORDERED: LORAZEPAM 1MG TABLET PO ONE (02:45)
== END 2023-03-18 02:45 ==
LOC: ER 02:28
DX: F41.9 Anxiety disorder, unspecified (principal); Z00.00 Encounter for general adult medical examination without abnormal findings; Z86.59 Personal history of other mental and behavioral disorders
CPT/HCPCS: 99284; Q0162

== ENCOUNTER 2023-03-21 17:06 | Inpatient (IN) | payer MEDICAID ==
[~2023-03-21] VITALS: Ht 175.3 cm; Wt 87.5 kg
[~2023-03-21 17:06] MED LIST changes: -CEFP200T13 MT; +KEPP500 MT; +ONDA4TAB50 MT; +THIA250T3 MT
[2023-03-21] MEDS ORDERED: FOLIC ACID 1 MG, THIAMINE HCL 100 MG, MVI, ADULT NO.1 10 ML in DEXTROSE 5% WATER 1,000 ML IV ONE ×4 (18:00)
[2023-03-21] MEDS ORDERED: LORAZEPAM 2MG/ML CPJ IV ONE (18:00)
[2023-03-21 18:12] LABS: BASOPHILS % 0.2 % (0.0-2.0); EOSINOPHILS % 0.4 % (0.0-5.0); HEMOGLOBIN. 16.2 g/dL (14.0-18.0); LYMPHOCYTES % 18.8 % (20.0-50.0); MEAN CORPUSCULAR HEMOGLOBIN 30.7 pg (28.0-32.0); MEAN CORPUSCULAR VOLUME 88.8 fL (80.0-94.0); MONOCYTES % 4.5 % (2.0-8.0); NEUTROPHILS % 76.1 % (40.0-76.0); PLATELET 255 x1000/uL (130-400); RED CELL DISTRIBUTION WIDTH 15.3 % (11.6-14.6)
[2023-03-21 18:24] LABS: CHLORIDE 105 mEq/L (98-107)
[2023-03-22] MEDS ORDERED: ACETAMINOPHEN 325MG TABLET PO PRN ×2 (01:15)
[2023-03-22] MEDS ORDERED: LORAZEPAM 2MG/ML CPJ IV PRN (01:15)
[2023-03-22] MEDS ORDERED: IPRATROPIUM/ALBUTEROL 0.5-3(2.5)MG/3ML NEB NEB PRN (01:15)
[2023-03-22] MEDS ORDERED: ONDANSETRON HCL 4MG/2ML INJ IV PRN (01:15)
[2023-03-22] MEDS ORDERED: MAGNESIUM/ALUMINUM HYDROXIDE/SIMETHICONE 30ML UDC PO PRN (01:15)
[2023-03-22] MEDS ORDERED: GUAIFENESIN 200MG/10ML SUGAR FREE UDC PO PRN (01:15)
[2023-03-22] MEDS: SODIUM CHLORIDE 0.9% 1,000 ML IV SCH ×2 (01:47→10:37)
[2023-03-22] MEDS: LORAZEPAM 2MG/ML CPJ IV PRN ×5 (01:48→22:59)
[2023-03-22 08:40] VITALS: BP 111/85; PULSE 94; RESP 20; TEMP 97.2
[2023-03-22 09:53] VITALS: BP 111/85; PULSE 87; RESP 20; TEMP 97.2
[2023-03-22] MEDS: THIAMINE HCL 100MG TABLET PO SCH (10:36)
[2023-03-22 12:00] VITALS: BP 148/91; PULSE 97; RESP 18; TEMP 97.2
[2023-03-22] MEDS ORDERED: HYDR100C2 PO (14:04)
[2023-03-22] MEDS ORDERED: OLAN15TA35 MT (14:04)
[2023-03-22 14:09] VITALS: BP 111/85; PULSE 87; RESP 20; TEMP 97.2
[2023-03-22 16:00] VITALS: BP 135/83; PULSE 97; RESP 18; TEMP 97.4
[2023-03-22 20:00] VITALS: BP 130/78; PULSE 99; RESP 19; TEMP 97.8
[2023-03-23 00:02] VITALS: BP 139/84; PULSE 106; RESP 20; TEMP 97.8
[2023-03-23] MEDS: LORAZEPAM 2MG/ML CPJ IV PRN ×5 (03:03→21:07)
[2023-03-23 04:00] VITALS: BP 127/76; PULSE 108; RESP 19; TEMP 98.2
[2023-03-23] MEDS: THIAMINE HCL 100MG TABLET PO SCH (07:52)
[2023-03-23 08:00] VITALS: BP 168/83; PULSE 88; RESP 18; TEMP 98.2
[2023-03-23 12:00] VITALS: BP 131/80; PULSE 102; RESP 18; TEMP 98.7
[2023-03-23 16:00] VITALS: BP 107/73; PULSE 109; RESP 18; TEMP 97.5
[2023-03-23 20:00] VITALS: BP 123/70; PULSE 110; RESP 20; TEMP 97.9
[2023-03-24] VITALS: BP 132/90; PULSE 109; RESP 20; TEMP 97.3
[2023-03-24] MEDS: LORAZEPAM 2MG/ML CPJ IV PRN ×5 (02:16→21:48)
[2023-03-24 04:00] VITALS: BP 130/77; PULSE 105; RESP 20; TEMP 97.5
[2023-03-24 08:00] VITALS: BP 126/85; PULSE 93; RESP 20; TEMP 98.1
[2023-03-24] MEDS: THIAMINE HCL 100MG TABLET PO SCH (09:12)
[2023-03-24 12:00] VITALS: BP 128/78; PULSE 87; RESP 16; TEMP 98.1
[2023-03-24] MEDS: CHLORDIAZEPOXIDE 25MG CAPSULE PO SCH ×2 (14:19→21:42)
[2023-03-24 16:00] VITALS: BP 138/78; PULSE 88; RESP 20; TEMP 97.9
[2023-03-24 20:00] VITALS: BP 122/85; PULSE 100; RESP 20; TEMP 99.6
[2023-03-25 00:17] VITALS: BP 141/84; PULSE 100; RESP 18; TEMP 98.2
[2023-03-25] MEDS: LORAZEPAM 2MG/ML CPJ IV PRN ×4 (03:43→20:24)
[2023-03-25 04:00] VITALS: BP 120/90; PULSE 99; RESP 18; TEMP 99
[2023-03-25] MEDS: CHLORDIAZEPOXIDE 25MG CAPSULE PO SCH ×2 (05:47→13:09)
[2023-03-25 08:00] VITALS: BP 125/85; PULSE 69; RESP 16; TEMP 97.5
[2023-03-25] MEDS: THIAMINE HCL 100MG TABLET PO SCH (08:23)
[2023-03-25 12:00] VITALS: BP 125/85; PULSE 69; RESP 16; TEMP 97.5
[2023-03-25 16:00] VITALS: BP 125/85; PULSE 69; RESP 16; TEMP 97.5
[2023-03-25 19:51] VITALS: BP 137/91; PULSE 96; RESP 18; TEMP 96.8
[2023-03-25] MEDS: CHLORDIAZEPOXIDE 10MG CAPSULE PO SCH (21:19)
[2023-03-26] VITALS: BP 133/73; PULSE 89; RESP 20; TEMP 97.9
[2023-03-26] MEDS: LORAZEPAM 2MG/ML CPJ IV PRN ×4 (00:30→20:17)
[2023-03-26 04:00] VITALS: BP 133/79; PULSE 86; RESP 18; TEMP 97.9
[2023-03-26] MEDS: CHLORDIAZEPOXIDE 10MG CAPSULE PO SCH (05:00)
[2023-03-26 07:16] LABS: BASOPHILS % 0.4 % (0.0-2.0); HEMATOCRIT. 45.9 % (42.0-52.0); HEMOGLOBIN. 15.9 g/dL (14.0-18.0); LYMPHOCYTES % 38.2 % (20.0-50.0); MEAN CORPUSCULAR HEMOGLOBIN 31.4 pg (28.0-32.0); MEAN CORPUSCULAR VOLUME 90.7 fL (80.0-94.0); MEAN PLATELET VOLUME 8.5 fl (7.4-10.4); MONOCYTES % 6.9 % (2.0-8.0); NEUTROPHILS % 53.5 % (40.0-76.0); PLATELET 190 x1000/uL (130-400); RED BLOOD CELL COUNT 5.06 mill/uL (4.7-6.1); RED CELL DISTRIBUTION WIDTH 15.4 % (11.6-14.6)
[2023-03-26 07:27] LABS: CHLORIDE 106 mEq/L (98-107)
[2023-03-26 08:00] VITALS: BP 129/86; PULSE 92; RESP 18; TEMP 97.2
[2023-03-26] MEDS: THIAMINE HCL 100MG TABLET PO SCH (08:51)
[2023-03-26] MEDS ORDERED: LEVETIRACETAM 500MG TABLET PO SCH (09:00)
[2023-03-26 12:00] VITALS: BP 125/84; PULSE 89; RESP 18; TEMP 97.8
[2023-03-26 16:00] VITALS: BP 119/77; PULSE 83; RESP 18; TEMP 97.2
[2023-03-26 20:00] VITALS: BP 122/86; PULSE 94; RESP 20; TEMP 98.4
[2023-03-27] VITALS (7 sets, daily range): BP systolic 106–142; BP diastolic 62–93; PULSE 72–104; RESP 18–20; TEMP 96.6–99; O2SAT 96
[2023-03-27] MEDS: LORAZEPAM 2MG/ML CPJ IV PRN ×3 (04:35→22:18)
[2023-03-27] MEDS: THIAMINE HCL 100MG TABLET PO SCH (08:43)
[2023-03-28] VITALS: BP 99/61; PULSE 88; RESP 18; TEMP 97
[2023-03-28 04:00] VITALS: BP 108/76; PULSE 85; RESP 20; TEMP 97.9
[2023-03-28 08:00] VITALS: BP_SYST 126; BP_SYST 166; BP_DIAS 63; BP_DIAS 82; PULSE 93; RESP 22; TEMP 96.9
[2023-03-28] MEDS: THIAMINE HCL 100MG TABLET PO SCH (08:36)
[2023-03-28] MEDS: LORAZEPAM 2MG/ML CPJ IV PRN ×2 (08:36→23:21)
[2023-03-28 12:00] VITALS: BP 130/80; PULSE 60; RESP 20; TEMP 97.7
[2023-03-28] MEDS ORDERED: HYDROXYZINE 25MG TABLET PO PRN (12:15)
[2023-03-28 16:43] VITALS: BP 105/55; PULSE 77; RESP 20; TEMP 96.9
[2023-03-28] MEDS: CLOTRIMAZOLE 1% CREAM 15GM TOP SCH ×2 (17:43→17:44)
[2023-03-28 19:26] VITALS: BP 119/75; PULSE 82; RESP 18; TEMP 97.5
[2023-03-28] MEDS: OLANZAPINE 10MG TABLET PO SCH (21:01)
[2023-03-29] VITALS: BP 119/52; PULSE 71; RESP 18; TEMP 97.8
[2023-03-29 04:00] VITALS: BP 116/77; PULSE 87; RESP 18; TEMP 97.6
[2023-03-29 08:00] VITALS: BP 118/70; PULSE 86; RESP 16; TEMP 97.3
[2023-03-29] MEDS: CLOTRIMAZOLE 1% CREAM 15GM TOP SCH ×2 (09:27→17:51)
[2023-03-29] MEDS: THIAMINE HCL 100MG TABLET PO SCH (09:27)
[2023-03-29] MEDS: LORAZEPAM 2MG/ML CPJ IV PRN ×2 (09:27→19:41)
[2023-03-29 12:00] VITALS: BP 122/60; PULSE 78; RESP 16; TEMP 97.3
[2023-03-29 16:00] VITALS: BP 114/65; PULSE 80; RESP 16; TEMP 97
[2023-03-29 20:00] VITALS: BP 118/72; PULSE 89; RESP 18; TEMP 97.9
[2023-03-29] MEDS: OLANZAPINE 10MG TABLET PO SCH (20:25)
[2023-03-29] MEDS ORDERED: OLAN10TA72 PO (23:29)
[2023-03-29] MEDS ORDERED: HYDR-3735 PO (23:29)
[2023-03-29] MEDS ORDERED: CLOT15CR27 TP (23:30)
[2023-03-30] VITALS: BP_SYST 123; BP_SYST 124; BP_DIAS 73; BP_DIAS 75; PULSE 80; PULSE 83; RESP 18; TEMP 97; TEMP 97.8
[2023-03-30 04:00] VITALS: BP 123/75; PULSE 80; RESP 18; TEMP 97
[2023-03-30 08:00] VITALS: BP 122/65; PULSE 65; RESP 17; TEMP 97
[2023-03-30] MEDS: CLOTRIMAZOLE 1% CREAM 15GM TOP SCH ×2 (09:11→17:38)
[2023-03-30] MEDS: THIAMINE HCL 100MG TABLET PO SCH (09:11)
[2023-03-30 12:00] VITALS: BP 119/58; PULSE 65; RESP 17; TEMP 97
[2023-03-30 16:00] VITALS: BP 115/90; PULSE 65; RESP 17; TEMP 97
== END 2023-03-30 19:05 | disposition home or self-care (01) | DRG 775 ==
LOC: ER 17:38 → 7WST 03-22 00:38 → SUPCPDRO 03-22 01:01 → CVICU 03-27 17:35 → 7WST 03-27 17:36
PROVIDERS: ADMIT Internal Medicine; ATTEND Internal Medicine
DX: F10.239 Alcohol dependence with withdrawal, unspecified (principal); F20.9 Schizophrenia, unspecified; R25.1 Tremor, unspecified; R25.3 Fasciculation; Z20.822 Contact with and (suspected) exposure to COVID-19; F41.9 Anxiety disorder, unspecified
CPT/HCPCS: 36415; 71045; 80048; 80053; 83880; 84484; 85025; 87426; 93005; 99285; J2060; J2405; J3411; J3490; J7070

== ENCOUNTER 2023-10-10 09:51 | Emergency (ER) | payer MEDICAID ==
[~2023-10-10] VITALS: Ht 172.7 cm; Wt 77.0 kg
[~2023-10-10 09:51] MED LIST changes: +CLOT15CR27 TP; -ESCITALOPRAM; -FOLI-43 PO; -GABA-532 PO; +HYDR-3735 PO; -KEPP500 MT; -MULT-624 PO; +OLAN10TA72 PO; -ONDA4TAB50 MT; -QUET100T34 MT; -QUET100T34 PO; -THIA250T3 MT
[2023-10-10 09:56] VITALS: TEMP 98.4; O2SAT 100
[2023-10-10 16:45] VITALS: BP 119/75; PULSE 86; RESP 17
== END 2023-10-10 17:42 | disposition home or self-care (01) ==
LOC: ER 09:51
DX: F10.129 Alcohol abuse with intoxication, unspecified (principal); Y90.8 Blood alcohol level of 240 mg/100 ml or more
CPT/HCPCS: 80320; 36415; 99283; Z7610; G0480

== ENCOUNTER 2023-12-08 14:42 | Emergency (ER) | payer MEDICAID ==
[~2023-12-08] VITALS: Ht 177.8 cm; Wt 95.0 kg
[2023-12-08 14:48] VITALS: TEMP 98.1; O2SAT 98
[2023-12-08 15:59] VITALS: BP 141/63; PULSE 92; RESP 20
== END 2023-12-08 17:06 | disposition home or self-care (01) ==
LOC: ER 14:42
DX: F10.129 Alcohol abuse with intoxication, unspecified (principal); Z86.59 Personal history of other mental and behavioral disorders; Y90.9 Presence of alcohol in blood, level not specified
CPT/HCPCS: 99283

== ENCOUNTER 2023-12-11 12:26 | Emergency (ER) | payer MEDICAID ==
[~2023-12-11] VITALS: Ht 170.2 cm; Wt 100.0 kg
[2023-12-11 12:30] VITALS: BP 124/86; PULSE 96; RESP 16; TEMP 97.8; O2SAT 100
[2023-12-11 12:58] LABS: BASOPHILS % 0.5 % (0.0-2.0); EOSINOPHILS % 0.1 % (0.0-5.0); HEMATOCRIT. 44.2 % (42.0-52.0); HEMOGLOBIN. 15.1 g/dL (14.0-18.0); LYMPHOCYTES % 41.3 % (20.0-50.0); MEAN CORPUSCULAR HEMOGLOBIN 30.5 pg (28.0-32.0); MEAN CORPUSCULAR HGB CONC 34.3 g/dL (31.0-37.0); MEAN PLATELET VOLUME 7.7 fl (7.4-10.4); MONOCYTES % 4.6 % (2.0-8.0); NEUTROPHILS % 53.5 % (40.0-76.0); PLATELET 278 x1000/uL (130-400); RED BLOOD CELL COUNT 4.96 mill/uL (4.7-6.1); RED CELL DISTRIBUTION WIDTH 15.3 % (11.6-14.6); WHITE BLOOD COUNT 8.3 x1000/uL (4.5-11.0)
[2023-12-11 13:39] LABS: ALANINE AMINOTRANSFERASE 61 IU/L (10-49); ASPARTATE AMINOTRANSFERASE 60 IU/L (<34); BILIRUBIN TOTAL 0.5 mg/dL (0.1-1.0); CALCIUM 8.9 mg/dL (8.7-10.4); CARBON DIOXIDE 27 mEq/L (21-32); CHLORIDE 102 mEq/L (98-107); CREATININE 0.9 mg/dL (0.6-1.3); ETHANOL BLOOD 396 mg/dL (<10); GLUCOSE 93 mg/dL (70-105); POTASSIUM 3.4 mEq/L (3.5-5.1); PROTEIN TOTAL 8.9 g/dL (6.0-8.3); SODIUM 141 mEq/L (136-145)
[2023-12-11 13:43] LABS: UREA NITROGEN BLOOD < 5 mg/dL (9-23)
== END 2023-12-11 13:45 | disposition left against medical advice (07) ==
LOC: ER 12:26
DX: F10.129 Alcohol abuse with intoxication, unspecified (principal); F41.9 Anxiety disorder, unspecified; F20.9 Schizophrenia, unspecified; Y90.8 Blood alcohol level of 240 mg/100 ml or more
CPT/HCPCS: 36415; 80053; 80320; 85025; 99283; G0480

== ENCOUNTER 2024-10-12 01:37 | Emergency (ER) | payer MEDICAID ==
[~2024-10-12] VITALS: Ht 170.2 cm; Wt 104.0 kg
[2024-10-12 01:46] VITALS: BP 130/87; PULSE 106; RESP 14; TEMP 36.7; O2SAT 98
[2024-10-12 05:08] LABS: CHLORIDE 108 mEq/L (98-107); POTASSIUM 3.8 mEq/L (3.5-5.1); SODIUM 146 mEq/L (136-145)
[2024-10-12 05:09] LABS: CALCIUM 9.1 mg/dL (8.7-10.4); CARBON DIOXIDE 25 mEq/L (21-32)
[2024-10-12 05:14] LABS: CREATININE 0.8 mg/dL (0.6-1.3); GLUCOSE 118 mg/dL (70-105); UREA NITROGEN BLOOD 6 mg/dL (9-23)
[2024-10-12 05:16] LABS: ALANINE AMINOTRANSFERASE 48 IU/L (10-49); ALBUMIN 4.5 g/dL (3.2-4.8); ASPARTATE AMINOTRANSFERASE 41 IU/L (<34); BILIRUBIN TOTAL 0.3 mg/dL (0.1-1.0); PROTEIN TOTAL 7.8 g/dL (6.0-8.3)
[2024-10-12 05:18] LABS: BASOPHILS % 0.3 % (0.0-2.0); EOSINOPHILS % 0.1 % (0.0-5.0); HEMATOCRIT. 46.9 % (42.0-52.0); HEMOGLOBIN. 15.5 g/dL (14.0-18.0); LYMPHOCYTES % 48.7 % (20.0-50.0); MEAN CORPUSCULAR HEMOGLOBIN 29.4 pg (28.0-32.0); MEAN CORPUSCULAR HGB CONC 33.1 g/dL (31.0-37.0); MEAN CORPUSCULAR VOLUME 88.9 fL (80.0-94.0); MEAN PLATELET VOLUME 8.4 fl (7.4-10.4); MONOCYTES % 3.9 % (2.0-8.0); PLATELET 275 x1000/uL (130-400); RED BLOOD CELL COUNT 5.27 mill/uL (4.7-6.1); RED CELL DISTRIBUTION WIDTH 14.1 % (11.6-14.6)
[2024-10-12 05:23] LABS: ETHANOL BLOOD 354 mg/dL (<10)
[2024-10-12] MEDS ORDERED: LORAZEPAM 2MG/ML INJ IV ONE (05:45)
== END 2024-10-12 07:00 | disposition left against medical advice (07) ==
LOC: ER 01:37 → CANBEDREQ 08:16
DX: F10.129 Alcohol abuse with intoxication, unspecified (principal); F41.9 Anxiety disorder, unspecified; F32.A Depression, unspecified; Z79.899 Other long term (current) drug therapy; Z86.59 Personal history of other mental and behavioral disorders; Y90.8 Blood alcohol level of 240 mg/100 ml or more
CPT/HCPCS: 36415; 80053; 80320; 85025; 99283; G0480

== ENCOUNTER 2024-10-14 10:04 | Emergency (ER) | payer MEDICAID ==
[~2024-10-14] VITALS: Ht 177.8 cm; Wt 90.0 kg
[2024-10-14 10:06] VITALS: O2SAT 94
[2024-10-14 11:07] LABS: CHLORIDE 101 mEq/L (98-107); POTASSIUM 2.9 mEq/L (3.5-5.1); SODIUM 138 mEq/L (136-145)
[2024-10-14 11:08] LABS: CARBON DIOXIDE 20 mEq/L (21-32)
[2024-10-14 11:13] LABS: CREATININE 0.9 mg/dL (0.6-1.3); GLUCOSE 120 mg/dL (70-105); UREA NITROGEN BLOOD 6 mg/dL (9-23)
[2024-10-14 11:14] LABS: ETHANOL BLOOD 277 mg/dL (<10)
[2024-10-14 11:16] LABS: COLOR URINE YELLOW (YELLOW)
[2024-10-14 11:17] LABS: BASOPHILS % 0.6 % (0.0-2.0); EOSINOPHILS % 0.1 % (0.0-5.0); HEMATOCRIT. 43.5 % (42.0-52.0); HEMOGLOBIN. 14.7 g/dL (14.0-18.0); LYMPHOCYTES % 32.7 % (20.0-50.0); MEAN CORPUSCULAR HEMOGLOBIN 29.6 pg (28.0-32.0); MEAN CORPUSCULAR HGB CONC 33.7 g/dL (31.0-37.0); MEAN CORPUSCULAR VOLUME 87.9 fL (80.0-94.0); NEUTROPHILS % 59.6 % (40.0-76.0); PLATELET 233 x1000/uL (130-400); RED BLOOD CELL COUNT 4.95 mill/uL (4.7-6.1); RED CELL DISTRIBUTION WIDTH 13.9 % (11.6-14.6); WHITE BLOOD COUNT 7.9 x1000/uL (4.5-11.0)
[2024-10-14 11:17] LABS: CLARITY URINE CLEAR (CLEAR); GLUCOSE URINE NEGATIVE (NEGATIVE); KETONES URINE 1+ (NEGATIVE); LEUKOCYTE ESTERASE URINE NEGATIVE (NEGATIVE); NITRITE URINE NEGATIVE (NEGATIVE); OCCULT BLOOD URINE NEGATIVE (NEGATIVE); PH URINE 6.5 (4.5-8.0); PROTEIN URINE TRACE (NEGATIVE); SPECIFIC GRAVITY URINE 1.025 (1.005-1.030)
[2024-10-14 11:43] LABS: *AMPHETAMINES SCREEN URINE NEGATIVE (NEGATIVE); *BARBITURATES SCREEN URINE NEGATIVE (NEGATIVE); *BENZODIAZEPINES SCREEN URINE NEGATIVE (NEGATIVE); *COCAINE SCREEN URINE NEGATIVE (NEGATIVE); CANNABINOID URINE SCREEN NEGATIVE (NEGATIVE); ECSTASY MDMA SCREEN URINE NEGATIVE (NEGATIVE); METHADONE URINE SCREEN NEGATIVE (NEGATIVE); OPIATES URINE SCREEN NEGATIVE (NEGATIVE); PHENCYCLIDINE URINE SCREEN NEGATIVE (NEGATIVE)
[2024-10-14 11:54] LABS: BACTERIA URINE FEW; RBC URINE NONE SEEN /hpf (0-2); SQUAMOUS EPITHELIAL CELL URINE NONE SEEN /lpf (RARE/1+); WBC URINE 0-2 /hpf (0-2); YEAST URINE NONE SEEN
[2024-10-14] MEDS: OLANZAPINE 10 MG/VIAL IM ONE (12:18)
[2024-10-14] MEDS: LORAZEPAM 2MG/ML INJ IM ONE (23:13)
[2024-10-15] MEDS: LORAZEPAM 1MG TABLET PO ONE (09:24)
[2024-10-15 09:55] VITALS: BP 130/75; PULSE 98; RESP 18; TEMP 36.9; O2SAT 99
== END 2024-10-15 10:00 | disposition home or self-care (01) ==
LOC: ER 10:04
DX: R45.851 Suicidal ideations (principal); F20.9 Schizophrenia, unspecified; F41.0 Panic disorder [episodic paroxysmal anxiety]; F10.90 Alcohol use, unspecified, uncomplicated; Y90.9 Presence of alcohol in blood, level not specified; Z20.822 Contact with and (suspected) exposure to COVID-19
CPT/HCPCS: 80305; 80048; 81003; 80320; 85025; 36415; 96372; 99285; 87426; J3490; J2060; Z7610; G0480

== ENCOUNTER 2025-03-30 03:39 | Emergency (ER) | payer MEDICAID ==
[~2025-03-30] VITALS: Ht 172.7 cm; Wt 91.0 kg
[2025-03-30 03:47] VITALS: O2SAT 100
[2025-03-30 06:10] VITALS: BP 123/78; PULSE 70; RESP 21; TEMP 36.5; O2SAT 96
== END 2025-03-30 06:15 | disposition home or self-care (01) ==
LOC: ER 03:39
DX: F10.129 Alcohol abuse with intoxication, unspecified (principal); F20.9 Schizophrenia, unspecified; Z79.899 Other long term (current) drug therapy; Y90.9 Presence of alcohol in blood, level not specified
CPT/HCPCS: 99283

== ENCOUNTER 2025-04-01 05:47 | Emergency (ER) | payer MEDICAID ==
[~2025-04-01] VITALS: Ht 170.2 cm; Wt 96.2 kg
[2025-04-01 05:51] VITALS: O2SAT 98
[2025-04-01] MEDS ORDERED: LEVETIRACETAM 500MG PREMIX 100 ML IV ONE (06:45)
[2025-04-01 07:03] LABS: BASOPHILS % 0.5 % (0.0-2.0); EOSINOPHILS % 0.2 % (0.0-5.0); HEMATOCRIT. 44.4 % (42.0-52.0); HEMOGLOBIN. 15.3 g/dL (14.0-18.0); LYMPHOCYTES % 47.5 % (20.0-50.0); MEAN PLATELET VOLUME 8.0 fl (7.4-10.4); MONOCYTES % 4.7 % (2.0-8.0); NEUTROPHILS % 47.1 % (40.0-76.0); PLATELET 250 x1000/uL (130-400); RED BLOOD CELL COUNT 5.26 mill/uL (4.7-6.1); RED CELL DISTRIBUTION WIDTH 14.0 % (11.6-14.6)
[2025-04-01 07:18] LABS: CREATININE 0.9 mg/dL (0.6-1.3); UREA NITROGEN BLOOD 8 mg/dL (9-23)
[2025-04-01 07:19] LABS: ASPARTATE AMINOTRANSFERASE 72 IU/L (<34)
[2025-04-01 07:20] LABS: BILIRUBIN TOTAL 1.0 mg/dL (0.1-1.0); PROTEIN TOTAL 8.2 g/dL (6.0-8.3)
[2025-04-01] MEDS: DIAZEPAM 5 MG/ML 2ML SYR IV ONE (07:40)
[2025-04-01] MEDS: ONDANSETRON HCL 4MG/2ML INJ IV ONE (07:44)
[2025-04-01] MEDS: LACTATED RINGERS 1,000 ML IV SCH (07:59)
[2025-04-01] MEDS: LEVETIRACETAM 500MG PREMIX 100 ML IV ONE (08:07)
[2025-04-01] MEDS: POTASSIUM CHLORIDE 20MEQ/PACKET PO ONE (08:08)
[2025-04-01 10:10] VITALS: BP 119/78; PULSE 84; RESP 20; TEMP 36.6; O2SAT 98
[2025-04-01 10:20] VITALS: BP 119/78; PULSE 84; RESP 20; TEMP 36.5848
[2025-04-01] MEDS ORDERED: ONDANSETRON HCL 4MG/2ML INJ IV PRN (11:45)
[2025-04-01] MEDS ORDERED: ACETAMINOPHEN 325MG TABLET PO PRN (11:45)
[2025-04-01 12:00] VITALS: BP 132/74; PULSE 85; RESP 18; TEMP 36.6; O2SAT 98
[2025-04-01] MEDS: LORAZEPAM 1MG TABLET PO PRN (12:24)
[2025-04-01] MEDS ORDERED: CHLORDIAZEPOXIDE 25MG CAPSULE PO SCH (14:00)
== END 2025-04-01 09:52 | disposition admitted as inpatient to this hospital (09) ==
LOC: ER 05:47 → 8WST 08:00 → UNDOADMIN 08:00 → EDBEDREQTM 08:10 → EDBEDREQ 08:10 → EDBEDREQSVC 09:00 → ENRESERV 09:43 → 8WST 09:54 → UNDODISIN 13:10
DX: F10.129 Alcohol abuse with intoxication, unspecified (principal); F10.139 Alcohol abuse with withdrawal, unspecified; R07.9 Chest pain, unspecified; Y90.9 Presence of alcohol in blood, level not specified
CPT/HCPCS: 99291; 96365; 96375; 80053; 83690; 85025; 36415; 93005; J1953; J3360; J2405; G0378

== ENCOUNTER 2025-05-24 19:48 | Emergency (ER) | payer MEDICAID ==
[~2025-05-24] VITALS: Ht 170.2 cm; Wt 100.0 kg
[2025-05-24 19:51] VITALS: BP 139/92; PULSE 99; RESP 16; TEMP 36.8; O2SAT 100
[2025-05-24] MEDS ORDERED: SODIUM CHLORIDE 0.9% 1,000 ML IV ONE (20:15)
[2025-05-24] MEDS ORDERED: LORAZEPAM 2MG/ML UD SYRINGE IV SCH (20:45)
[2025-05-24] MEDS ORDERED: LORAZEPAM 2MG/ML UD SYRINGE IV ONE (20:45)
== END 2025-05-24 22:56 | disposition home or self-care (01) ==
LOC: ER 19:48 → CMPBEDREQ 05-25 08:25
DX: F10.129 Alcohol abuse with intoxication, unspecified (principal); Z79.899 Other long term (current) drug therapy; Y90.9 Presence of alcohol in blood, level not specified
CPT/HCPCS: 99283; J7030; J2060

== ENCOUNTER 2025-05-26 17:32 | Emergency (ER) | payer MEDICAID ==
[~2025-05-26] VITALS: Ht 175.3 cm; Wt 84.0 kg
[2025-05-26 17:44] VITALS: BP 146/98; PULSE 110; RESP 16; TEMP 37; O2SAT 99
== END 2025-05-26 22:05 | disposition left against medical advice (07) ==
LOC: ER 17:32
DX: F10.939 Alcohol use, unspecified with withdrawal, unspecified (principal); Z53.21 Procedure and treatment not carried out due to patient leaving prior to being seen by health care provider; Y90.9 Presence of alcohol in blood, level not specified